=== PATIENT | male | born 1950 | race Caucasian/White ===

== ENCOUNTER 2018-03-15 11:35 | Outpatient (RCR) | payer OTHER, SELFPAY | END 2018-03-22 23:59 | disposition home or self-care (01) | LOC: CR 11:35 | PROVIDERS: PCP Internal Medicine; Visit Provider Family Medicine | DX: I25.2 Old myocardial infarction (principal); Z95.5 Presence of coronary angioplasty implant and graft; Z51.89 Encounter for other specified aftercare | CPT/HCPCS: S9472 ==

== ENCOUNTER 2018-05-09 15:50 | Observation (INO) | payer OTHER, MEDICARE, SELFPAY ==
[2018-05-09] VITALS (52 sets, daily range): BP systolic 91–160; BP diastolic 52–97; PULSE 0–95; RESP 10–65; TEMP 36.9–37.6; O2SAT 88–96
[2018-05-09 16:22] LABS: Abs Immature Grans 0.05 k/cumm (0.0-0.09); Absolute Basophil Count 0.03 k/cumm (0.0-0.2); Absolute Eosinophil Count 0.17 k/cumm (0.0-0.7); Absolute Monocyte Count 0.93 k/cumm (0.11-0.7); Absolute Neutrophil Count 10.84 k/cumm (1.2-6.7); Basophils % 0.2; Eosinophils % 1.3; HCT 47.5 % (40.0-50.0); HGB 15.5 g/dL (13.5-17.5); Immature Grans % 0.4; Lymphocytes % 8.4; Mean Corp. HGB Concentration 32.6 g/dL (32.0-36.0); Mean Corpuscular Hemoglobin 27.8 pg (27.0-33.0); Mean Corpuscular Volume 85.3 fL (80-95); Mean Platelet Volume 12.5 fL (8.0-11.0); Monocytes % 7.1; Neutrophils % 82.6; Platelet Count 219 x1000/uL (130-400); RBC 5.57 m/cumm (4.50-6.00); RBC Distribution Width 15.5 % (11.8-14.1); White Blood Cell Count 13.12 k/cumm (4.4-10.8)
--- NOTE | 2018-05-09 16:23 | DI.RAD_ITS ---
SYMPTOM/DIAGNOSIS: CHEST PAIN PORTABLE AP CHEST: The heart is mildly enlarged. The lungs are grossly clear. No pleural effusion is seen. CONCLUSION: Mild cardiomegaly. No change from 11/17/17.
[2018-05-09 16:38] LABS: ALT 41 U/L (12-78); AST 27 U/L (15-37); Albumin 4.6 g/dL (3.4-5.0); Alkaline Phosphatase 152 U/L (46-116); Anion Gap 11.9 mmol/L (3-11); BUN 14 mg/dL (7-18); Bilirubin, Direct 0.17 mg/dL (0.00-0.20); Bilirubin, Total 1.1 mg/dL (0.2-1.0); CO2 30.1 mmol/L (21.0-32.0); CREATININE 1.67 mg/dL (0.70-1.30); Calcium 9.4 mg/dL (8.5-10.1); Chloride 101 mmol/L (98-107); Glucose 97 mg/dL (70-100); Potassium 4.1 mmol/L (3.5-5.1); Sodium 143 mmol/L (136-145); Total Protein 8.9 g/dL (6.4-8.2); Troponin I < 0.02 ng/mL (0.00-0.06)
--- NOTE | 2018-05-09 16:38 | DI.VRAD_ITS ---
EXAM: XR Chest, 1 View EXAM DATE/TIME: 05/09/2018 4:06 PM CLINICAL HISTORY: 67 years old, male; Pain; Chest pain TECHNIQUE: XR of the chest, 1 view. COMPARISON: CR CHEST 2 VIEWS PA,LAT 11/17/2017 7:09 AM FINDINGS: The cardiomediastinal silhouette and pulmonary vasculature are within normal limits. The lungs are clear. No pleural effusion or pneumothorax is identified. IMPRESSION: No acute process. Dictated and Authenticated by: Jose E Yusuf MD. Ordering:LEDA NANCE MD
--- NOTE | 2018-05-09 16:40 | W.ED.GENAD ---
Discharge Plan Disposition Condition: Stable Discharge Details Chief Complaint: Chest Pain Reason For Visit: CHEST PAIN Admit Date/Time: 05/09/18 18:37 Admit Provider: Shell Smith Attending Provider: Shell Smith Primary Care Provider: Diallo Booth ED Provider: Tristen Parks Discharge Data Discharge Date/Time-TO BE ENTERED AT DEPARTURE: 05/09/18 20:00 Medical Decision Making 1640 --67-year-old male with history of coronary artery disease status post IL with stent in October 2017, here with chest pain that started this morning and has been intermittent since onset. No active pain currently. Consider acs. ECG reviewed and interpreted by me: Sinus rhythm 71 bpm, left axis, ST depressions noted lead I and aVL. I compared to prior EKG from 11/11/[address] depressions are not present. Plan to check trop. Consider PE. No hypoxia or tachycardia. No signs of dvt. 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 He has been taking his elliquis as prescribed. Plan to check ddimer. 16:55 --interpreted by radiology: No acute process -- Labs reviewed: nondiagnostic, mild leukocytosis noted, trop neg. Plan to admit for chest pain, r/o ACS. Spoke with hospitalist who will admit - care transitioned to hospitalist at time of admission. HPI General Mode of arrival: ambulatory. Date/Time Provider Initiated Documentation: 05/09/18 16:04. Limitations to Documentation: no limitations. Information obtained by: patient. HPI Narrative: 67yo m with HTN and s/p IL with stent 10/2017, here with chief complaint of chest pain. Pain is localized to left anterior chest and radiates to his left arm. Pain started around 8 AM this morning. Pain is been intermittent since onset. Patient notes that he has a brief episode lasting minutes every half hour or so. Pain is moderate in severity. Pain feels like a dull, burning sensation. Patient states that pain seems worse with certain positions including turning steering wheel and also with deep breath. Patient did take 2 nitroglycerin today 1 at 8 AM and 1 at 2 PM. Not sure if these helped his pain. He has associated shortness of breath. No leg swelling. Related Data Home Medications Medication Instructions Recorded Confirmed Atrovastatin C 80 mg PO DAILY 11/20/13 05/09/18 venlafaxine 37.5 mg PO DAILY 11/20/13 05/09/18 apixaban [Eliquis] 5 mg PO BID 30 Days #60 tab-cap 01/30/18 05/09/18 atorvastatin [Lipitor] 40 mg PO DAILY tab-cap 01/30/18 05/09/18 losartan [Cozaar] 25 mg PO DAILY tab-cap 01/30/18 05/09/18 metoprolol tartrate 100 mg PO BID #120 tab-cap 01/30/18 05/09/18 pantoprazole [Protonix] 40 mg PO DAILY tab-cap 01/30/18 05/09/18 ticagrelor [Brilinta] 90 mg PO BID tab-cap 01/30/18 05/09/18 furosemide [Lasix] 40 mg PO DAILY 05/09/18 05/09/18 Previous Rx's Medication Instructions Recorded apixaban [Eliquis] 5 mg PO BID 30 Days #60 tab-cap 01/30/18 metoprolol tartrate 100 mg PO BID #120 tab-cap 01/30/18 Allergies Allergy/AdvReac Type Severity Reaction Status Date / Time lisinopril Allergy Severe Anaphylaxsi Verified 05/09/18 15:55 s General Stated Complaint: Chest Pain MANOJ: 2 Review of Systems Review of Systems All systems reviewed & are unremarkable except as noted in HPI and below Cardiovascular Reports as per HPI and Reports chest pain Respiratory Reports as per HPI and Denies cough PFSH Family History Mother CAD (coronary artery disease) CVA (cerebral vascular accident) Hypertension Sister Brain cancer Medical History Hyperlipidemia (Chronic) Hypertension, essential (Chronic) Paroxysmal atrial fibrillation (Chronic) Systolic CHF (Chronic) CAD (coronary artery disease) (Chronic) Social History marital status: lives independently: Yes 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[employer] Smoking/Tobacco Use Status: Former Tobacco Use alcohol intake: former substance use type: does not use Surgical History H/O cardiac catheterization (Chronic) History of appendectomy (Chronic) Colonoscopy - IV Sedation (02/28/16) Exam Const General: cooperative and no acute distress HENMT Head: normocephalic and atraumatic Mouth: moist mucous membranes Eyes Conjunctivae: normal conjunctivae Sclera: normal sclerae EOM: EOM intact bilaterally Neck Neck: trachea midline and supple Resp Auscultation: clear to auscultation bilaterally, no rales, no rhonchi and no wheezes Cardio Jugular venous pressure: no JVD Rate: regular rate and not tachycardic Rhythm: regular rhythm GI Palpation: soft, not firm, no guarding, no masses, not rigid and nontender Skin General skin exam: no rashes or lesions noted Neuro General: alert, awake, oriented x3 and tone normal Extrem General: no calf tenderness and no edema Psych Appearance: grossly normal Mental Status: mental status grossly normal Speech and Movement: speech and movement normal Course Vital Signs Temperature 36.9 C 05/09/18 15:56 Pulse 73 05/09/18 15:56 Respiratory Rate 13 05/09/18 15:56 Blood Pressure 160/90 H 05/09/18 15:56 Pulse Oximetry 95 05/09/18 15:56 Temperature 36.9 C 05/09/18 15:56 Temperature Source Temporal Artery Scan 05/09/18 15:56 Pulse 73 05/09/18 15:56 Respiratory Rate 13 05/09/18 15:56 Respiratory Effort 05/09/18 16:02 Blood Pressure 160/90 H 05/09/18 15:56 Pulse Oximetry 95 05/09/18 15:56 Oxygen Delivery Method Room Air 05/09/18 15:56 Oxygen Flow Rate 0 05/09/18 15:56 Pain Level 6 05/09/18 16:02 Lab/Test Results Lab/Test Results: Laboratory Tests Range/Units 05/09/18 05/09/18 16:00 16:00 WBC (4.4-10.8) k/cumm 13.12 H RBC (4.50-6.00) m/cumm 5.57 Hgb (13.5-17.5) g/dL 15.5 Hct (40.0-50.0) % 47.5 MCV (80-95) fL 85.3 MCH (27.0-33.0) pg 27.8 MCHC (32.0-36.0) g/dL 32.6 RDW (11.8-14.1) % 15.5 H Plt Count (130-400) x1000/uL 219 MPV (8.0-11.0) fL 12.5 H Immature Gran % 0.4 Neutrophils % 82.6 Lymphocytes % 8.4 Monocytes % 7.1 Eosinophils % 1.3 Basophils % 0.2 Absolute Neutrophils (1.2-6.7) k/cumm 10.84 H Absolute Lymphocytes (1.2-3.4) k/cumm 1.10 L Absolute Monocytes (0.11-0.7) k/cumm 0.93 H Absolute Eosinophils (0.0-0.7) k/cumm 0.17 Absolute Basophils (0.0-0.2) k/cumm 0.03 Sodium (136-145) mmol/L 143 Potassium (3.5-5.1) mmol/L 4.1 Chloride (98-107) mmol/L 101 Carbon Dioxide (21.0-32.0) mmol/L 30.1 Anion Gap (3-11) mmol/L 11.9 H BUN (7-18) mg/dL 14 Creatinine (0.70-1.30) mg/dL 1.67 H Estimated GFR/1.73 m2 (mL/min/1.73m2) 41.50 Glucose (70-100) mg/dL 97 Calcium (8.5-10.1) mg/dL 9.4 Magnesium (1.8-2.4) mg/dL 2.0 Total Bilirubin (0.2-1.0) mg/dL 1.1 H Conjugated Bilirubin (0.00-0.20) mg/dL 0.17 AST (15-37) U/L 27 ALT (12-78) U/L 41 Alkaline Phosphatase (46-116) U/L 152 H Troponin I (0.00-0.06) ng/mL < 0.02 Total Protein (6.4-8.2) g/dL 8.9 H Albumin (3.4-5.0) g/dL 4.6
--- NOTE | 2018-05-09 16:43 | ED.GENADUL_ITS ---
Discharge Plan Disposition Condition: Stable Discharge Details Chief Complaint: Chest Pain Reason For Visit: CHEST PAIN Admit Date/Time: 05/09/18 18:37 Admit Provider: Shell Smith Attending Provider: Shell Smith Primary Care Provider: Diallo Booth ED Provider: Tristen Parks Discharge Data Discharge Date/Time-TO BE ENTERED AT DEPARTURE: 05/09/18 20:00 Medical Decision Making 1640 --67-year-old male with history of coronary artery disease status post [place] with stent in October 2017, here with chest pain that started this morning and has been intermittent since onset. No active pain currently. Consider acs. ECG reviewed and interpreted by me: Sinus rhythm 71 bpm, left axis, ST depressions noted lead I and aVL. I compared to prior EKG from 11/11/[address] depressions are not present. Plan to check trop. Consider PE. No hypoxia or tachycardia. No signs of dvt. 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 He has been taking his elliquis as prescribed. Plan to check ddimer. 16:55 --interpreted by radiology: No acute process -- Labs reviewed: nondiagnostic, mild leukocytosis noted, trop neg. Plan to admit for chest pain, r/o ACS. Spoke with hospitalist who will admit - care transitioned to hospitalist at time of admission. HPI General Mode of arrival: ambulatory . Date/Time Provider Initiated Documentation: 05/09/18 16:04 . Limitations to Documentation: no limitations . Information obtained by: patient . HPI Narrative: 67yo m with HTN and s/p DE with stent 10/2017, here with chief complaint of chest pain. Pain is localized to left anterior chest and radiates to his left arm. Pain started around 8 AM this morning. Pain is been intermittent since onset. Patient notes that he has a brief episode lasting minutes every half hour or so. Pain is moderate in severity. Pain feels like a dull, burning sensation. Patient states that pain seems worse with certain positions including turning steering wheel and also with deep breath. Patient did take 2 nitroglycerin today 1 at 8 AM and 1 at 2 PM. Not sure if these helped his pain. He has associated shortness of breath. No leg swelling. Related Data Home Medications Medication Instructions Recorded Confirmed Atrovastatin C 80 mg PO DAILY 11/20/13 05/09/18 venlafaxine 37.5 mg PO DAILY 11/20/13 05/09/18 apixaban [Eliquis] 5 mg PO BID 30 Days #60 tab-cap 01/30/18 05/09/18 atorvastatin [Lipitor] 40 mg PO DAILY tab-cap 01/30/18 05/09/18 losartan [Cozaar] 25 mg PO DAILY tab-cap 01/30/18 05/09/18 metoprolol tartrate 100 mg PO BID #120 tab-cap 01/30/18 05/09/18 pantoprazole [Protonix] 40 mg PO DAILY tab-cap 01/30/18 05/09/18 ticagrelor [Brilinta] 90 mg PO BID tab-cap 01/30/18 05/09/18 furosemide [Lasix] 40 mg PO DAILY 05/09/18 05/09/18 Previous Rx's Medication Instructions Recorded apixaban [Eliquis] 5 mg PO BID 30 Days #60 tab-cap 01/30/18 metoprolol tartrate 100 mg PO BID #120 tab-cap 01/30/18 Allergies Allergy/AdvReac Type Severity Reaction Status Date / Time lisinopril Allergy Severe Anaphylaxsi Verified 05/09/18 15:55 s General Stated Complaint: Chest Pain MANOJ: 2 Review of Systems Review of Systems All systems reviewed & are unremarkable except as noted in HPI and below Cardiovascular Reports as per HPI and Reports chest pain Respiratory Reports as per HPI and Denies cough PFSH Family History Mother CAD (coronary artery disease) CVA (cerebral vascular accident) Hypertension Sister Brain cancer Medical History Hyperlipidemia (Chronic) Hypertension, essential (Chronic) Paroxysmal atrial fibrillation (Chronic) Systolic CHF (Chronic) CAD (coronary artery disease) (Chronic) Social History marital status: lives independently: Yes 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[employer] Smoking/Tobacco Use Status: Former Tobacco Use alcohol intake: former substance use type: does not use Surgical History H/O cardiac catheterization (Chronic) History of appendectomy (Chronic) Colonoscopy - IV Sedation (02/28/16) Exam Const General: cooperative and no acute distress HENMT Head: normocephalic and atraumatic Mouth: moist mucous membranes Eyes Conjunctivae: normal conjunctivae Sclera: normal sclerae EOM: EOM intact bilaterally Neck Neck: trachea midline and supple Resp Auscultation: clear to auscultation bilaterally, no rales, no rhonchi and no wheezes Cardio Jugular venous pressure: no JVD Rate: regular rate and not tachycardic Rhythm: regular rhythm GI Palpation: soft, not firm, no guarding, no masses, not rigid and nontender Skin General skin exam: no rashes or lesions noted Neuro General: alert, awake, oriented x3 and tone normal Extrem General: no calf tenderness and no edema Psych Appearance: grossly normal Mental Status: mental status grossly normal Speech and Movement: speech and movement normal Course Vital Signs Temperature 36.9 C 05/09/18 15:56 Pulse 73 05/09/18 15:56 Respiratory Rate 13 05/09/18 15:56 Blood Pressure 160/90 H 05/09/18 15:56 Pulse Oximetry 95 05/09/18 15:56 Temperature 36.9 C 05/09/18 15:56 Temperature Source Temporal Artery Scan 05/09/18 15:56 Pulse 73 05/09/18 15:56 Respiratory Rate 13 05/09/18 15:56 Respiratory Effort 05/09/18 16:02 Blood Pressure 160/90 H 05/09/18 15:56 Pulse Oximetry 95 05/09/18 15:56 Oxygen Delivery Method Room Air 05/09/18 15:56 Oxygen Flow Rate 0 05/09/18 15:56 Pain Level 6 05/09/18 16:02 Lab/Test Results Lab/Test Results: Laboratory Tests Range/Units 05/09/18 05/09/18 16:00 16:00 WBC (4.4-10.8) k/cumm 13.12 H RBC (4.50-6.00) m/cumm 5.57 Hgb (13.5-17.5) g/dL 15.5 Hct (40.0-50.0) % 47.5 MCV (80-95) fL 85.3 MCH (27.0-33.0) pg 27.8 MCHC (32.0-36.0) g/dL 32.6 RDW (11.8-14.1) % 15.5 H Plt Count (130-400) x1000/uL 219 MPV (8.0-11.0) fL 12.5 H Immature Gran % 0.4 Neutrophils % 82.6 Lymphocytes % 8.4 Monocytes % 7.1 Eosinophils % 1.3 Basophils % 0.2 Absolute Neutrophils (1.2-6.7) k/cumm 10.84 H Absolute Lymphocytes (1.2-3.4) k/cumm 1.10 L Absolute Monocytes (0.11-0.7) k/cumm 0.93 H Absolute Eosinophils (0.0-0.7) k/cumm 0.17 Absolute Basophils (0.0-0.2) k/cumm 0.03 Sodium (136-145) mmol/L 143 Potassium (3.5-5.1) mmol/L 4.1 Chloride (98-107) mmol/L 101 Carbon Dioxide (21.0-32.0) mmol/L 30.1 Anion Gap (3-11) mmol/L 11.9 H BUN (7-18) mg/dL 14 Creatinine (0.70-1.30) mg/dL 1.67 H Estimated GFR/1.73 m2 (mL/min/1.73m2) 41.50 Glucose (70-100) mg/dL 97 Calcium (8.5-10.1) mg/dL 9.4 Magnesium (1.8-2.4) mg/dL 2.0 Total Bilirubin (0.2-1.0) mg/dL 1.1 H Conjugated Bilirubin (0.00-0.20) mg/dL 0.17 AST (15-37) U/L 27 ALT (12-78) U/L 41 Alkaline Phosphatase (46-116) U/L 152 H Troponin I (0.00-0.06) ng/mL < 0.02 Total Protein (6.4-8.2) g/dL 8.9 H Albumin (3.4-5.0) g/dL 4.6
[2018-05-09 17:37] LABS: D-Dimer 671 ng/mlFEU (<500)
[2018-05-09 19:25] LABS: NT-proBNP 3869 pg/mL
[2018-05-09] MEDS: Aspirin 81 MG CHEW PO (19:26)
[2018-05-09 20:40] LABS: Troponin I 0.02 ng/mL (0.00-0.06)
[2018-05-09] MEDS: Normal Saline Flush 10 ML SYR IVP ×2 (21:00→23:38)
--- NOTE | 2018-05-09 21:16 | HPE_ITS ---
Date of service: 05/09/18 Time of Service: 21:14 Assessment and Plan (1) Chest pain: Current visit: Yes Status: Acute Differential diagnosis includes unstable angina vs underlying pulmonary process. The fact that the patient states his symptoms are similar to those he had during his heart attack is concerning. The patient has been on brillinta, but not on asa. He was previously suspected to be resistant to plavix. Patient will be monitored on telemetry with serial cardiac enzymes, repeat EKG in am and cardiology consult in am. Restart aspirin. We will continue his outpatient metoprolol, losartan, brillinta, atorvastatin. Check Lipids in am. (2) Fever: Current visit: Yes Status: Acute The most likely etiology is acute bronchitis, possibly viral. However, will cover him empirically with rocephin. Blood culture, UA and urine C&S were ordered. (3) CAD (coronary artery disease): Current visit: Yes Status: Chronic s/p STEMI, 2 cardiac caths at [facility] this spring with [address] (2nd catheterization due to suspected in-stent restenosis while on plavix), not on asa x 2 months, not on plavix due to suspected resistance, but on brillinta and eliquis. Restart asa. Cardiology is being consulted. Read chest pain w/u section above. (4) Systolic CHF: Current visit: Yes Status: Chronic Clinically euvolemic, though I do see elevated pro BNP. This marker can go up with infectious pulmonary process such as pneumonia or bronchitis. Continue outpatient oral lasix though will give an extra dose of it tonight. (5) Paroxysmal atrial fibrillation: Current visit: Yes Status: Chronic Presently, in NSR. Continue eliquis and beta blockers. (6) Hypertension, essential: Current visit: Yes Status: Chronic Controlled on outpatient regimen - continue (7) Hyperlipidemia: Current visit: Yes Status: Chronic Continue atorvastatin. Check fasting lipid panel. (8) CKD (chronic kidney disease): Current visit: Yes Status: Acute Stage III, actually slightly better than baseline by GFR. Continue ARB, lasix, monitor kidney function. History of Present Illness Chief Complaint: Chest pain Narrative: Mr Romano is a 67 year-old male with PMHx of CAD s/p STEMI in October of 2017, requiring a cardiac cath at [facility] with placement of 2 drug eluting stents, as well as a follow up cardiac cath 2 days later for suspected in-stent restenosis/plavix resistance, requiring placement of a 3rd stent, who also has a history of paroxysmal Afib, on eliquis, hypertension, and hyperlipidemia, who presented to the ER today complaining of episodic Left-sided chest pains, burning, like heartburn, radiating down his Left arm starting at about 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 The patient took a nitroglycerin at that time and it helped. Throughout the day, the patient had between 15 and 20 of these episodes, never lasting more than a minute or two. He is pain free now, but he is anxious about it, worrying that he might be having a heart attack again. The patient reports feeling short of breath today, but cannot give me any more detail than that. He is not short of breath now. He denies any dizziness, sweats/diaphoresis, feeling like he might pass out or any nausea. He states he chest pain felt like he did when he ended up needing the first cardiac cath. The patient also endorses having chills and not being able to warm up earlier today. He denies any sore throat, any changes to his chronic dry cough, or any urinary symptoms outside of those that he experiences after taking lasix. In the ER, the patient was found to have WBC of 13. He spiked a fever of 37.6 [address]. Review of Systems Review of Systems 12 systems reviewed. Pertinent positives and negatives are as per HPI. 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 Smoking/Tobacco Use Status: Former Tobacco Use alcohol intake: former substance use type: does not use Surgical History H/O cardiac catheterization (Chronic) History of appendectomy (Chronic) Colonoscopy - IV Sedation (02/28/16) Meds Home Medications Medication Instructions Recorded Confirmed Type Atrovastatin C 80 mg PO DAILY 11/20/13 05/09/18 History venlafaxine 37.5 mg PO DAILY 11/20/13 05/09/18 History apixaban [Eliquis] 5 mg PO BID 30 Days #60 tab-cap 01/30/18 05/09/18 Rx atorvastatin [Lipitor] 40 mg PO DAILY tab-cap 01/30/18 05/09/18 History losartan [Cozaar] 25 mg PO DAILY tab-cap 01/30/18 05/09/18 History metoprolol tartrate 100 mg PO BID #120 tab-cap 01/30/18 05/09/18 Rx pantoprazole [Protonix] 40 mg PO DAILY tab-cap 01/30/18 05/09/18 History ticagrelor [Brilinta] 90 mg PO BID tab-cap 01/30/18 05/09/18 History furosemide [Lasix] 40 mg PO DAILY 05/09/18 05/09/18 History Allergies Allergy/AdvReac Type Severity Reaction Status Date / Time lisinopril Allergy Severe Anaphylaxsi Verified 05/09/18 15:55 s Exam Narrative Exam Narrative: General: Very pleasant Middle-aged male, sitting up in bed eating dinner, joking, does not appear to be short of breath, able to speak in full sentences, does stop to cough 3-4 times during our interview - nonproductive Neurological: A&Ox3, CN II-XII intact, no obvious focal deficits Psychiatric: appropriate speech content/affect Skin: no bruises or rashes HEENT: Atraumatic, normocephalic, Extraocular movements are intact, pupils are equal and round, clear oropharynx, Mallampati IV, large neck diameter, moist mucous membranes, no submandibular or cervical lymphadenopathy, no goiter or JVD Cardiovascular: regularly regular rhythm, no murmurs, rubs, or gallops Lungs: clear to auscultation bilaterally, questionable slightly coarse breath sounds Gastrointestinal: abdomen soft, nontender, nondistended Extremities: 2+ pedal pulses bilaterally, no edema, clubbing, or cyanosis Results Imaging Additional studies: CXR: official read - no acute process. Per my read, slight air bronchograms can be noticed. EKG: HR 71, NSR, no acute ischemia, nonspecific ST changes, old inferior NE Labs : 05/09/18 16:00 05/09/18 16:00 Laboratory Results - last 24 hr 05/09/18 05/09/18 05/09/18 16:00 16:00 16:00 WBC 13.12 H RBC 5.57 Hgb 15.5 Hct 47.5 MCV 85.3 MCH 27.8 MCHC 32.6 RDW 15.5 H Plt Count 219 MPV 12.5 H Immature Gran % 0.4 Neutrophils % 82.6 Lymphocytes % 8.4 Monocytes % 7.1 Eosinophils % 1.3 Basophils % 0.2 Absolute Neutrophils 10.84 H Absolute Lymphocytes 1.10 L Absolute Monocytes 0.93 H Absolute Eosinophils 0.17 Absolute Basophils 0.03 D-Dimer 671 H Sodium 143 Potassium 4.1 Chloride 101 Carbon Dioxide 30.1 Anion Gap 11.9 H BUN 14 Creatinine 1.67 H Estimated GFR/1.73 m2 41.50 Glucose 97 Calcium 9.4 Magnesium 2.0 Total Bilirubin 1.1 H Conjugated Bilirubin 0.17 AST 27 ALT 41 Alkaline Phosphatase 152 H Troponin I < 0.02 NT-Pro-B Natriuret Pep Total Protein 8.9 H Albumin 4.6 05/09/18 05/09/18 16:00 20:15 WBC RBC Hgb Hct MCV MCH MCHC RDW Plt Count MPV Immature Gran % Neutrophils % Lymphocytes % Monocytes % Eosinophils % Basophils % Absolute Neutrophils Absolute Lymphocytes Absolute Monocytes Absolute Eosinophils Absolute Basophils D-Dimer Sodium Potassium Chloride Carbon Dioxide Anion Gap BUN Creatinine Estimated GFR/1.73 m2 Glucose Calcium Magnesium Total Bilirubin Conjugated Bilirubin AST ALT Alkaline Phosphatase Troponin I 0.02 NT-Pro-B Natriuret Pep 3869 H Total Protein Albumin Last Vital Signs Temp 36.9 C 05/09/18 15:56 Pulse 76 05/09/18 20:16 Resp 20 05/09/18 20:16 BP 125/77 05/09/18 20:16 Pulse Ox 96 05/09/18 20:16
[2018-05-09 21:47] LABS: Bilirubin Negative (Negative); Blood Negative (Negative); Clarity Clear; Glucose Negative (Negative); Ketones Negative (Negative); Leukocyte Esterase Negative (Negative); Nitrite Negative (Negative); Specific Gravity 1.015 (1.005-1.025); Urobilinogen 0.2 EU/dL (Up TO 0.2); pH 5.5 (5-8)
[2018-05-09 21:59] LABS: Bacteria Rare HPF (Negative); Casts Negative LPF (Negative); Crystals Negative HPF (Negative); Epithelial Cells Negative HPF (Negative); Mucus Trace (Negative); Other Cells Negative (Negative); RBC Negative (0-2); WBC Negative HPF (0-5)
[2018-05-09 22:00] LABS: C & S Indicated? C&S Done As Ordered
[2018-05-09] MEDS: Metoprolol 50 MG TAB 100 MG PO (23:33)
[2018-05-09] MEDS: Apixaban 2.5 MG TAB 5 MG PO (23:37)
[2018-05-09] MEDS: Furosemide 40 MG TAB PO (23:37)
[2018-05-10] VITALS (53 sets, daily range): BP systolic 83–112; BP diastolic 38–81; PULSE 42–95; RESP 12–26; TEMP 36.3–36.4; O2SAT 2–99
[2018-05-10 07:20] LABS: Abs Immature Grans 0.02 k/cumm (0.0-0.09); Absolute Basophil Count 0.01 k/cumm (0.0-0.2); Absolute Eosinophil Count 0.11 k/cumm (0.0-0.7); Absolute Lymphocyte Count 1.52 k/cumm (1.2-3.4); Absolute Monocyte Count 0.82 k/cumm (0.11-0.7); Absolute Neutrophil Count 4.42 k/cumm (1.2-6.7); Basophils % 0.1; Eosinophils % 1.6; HCT 41.8 % (40.0-50.0); HGB 13.8 g/dL (13.5-17.5); Immature Grans % 0.3; Mean Corpuscular Hemoglobin 28.1 pg (27.0-33.0); Mean Corpuscular Volume 85.1 fL (80-95); Mean Platelet Volume 12.5 fL (8.0-11.0); Monocytes % 11.9; Neutrophils % 64.1; Platelet Count 181 x1000/uL (130-400); RBC 4.91 m/cumm (4.50-6.00); RBC Distribution Width 15.5 % (11.8-14.1)
[2018-05-10 07:31] LABS: BUN 18 mg/dL (7-18); CREATININE 1.68 mg/dL (0.70-1.30); Calcium 8.6 mg/dL (8.5-10.1); Chloride 103 mmol/L (98-107); Cholesterol 163 mg/dL (50-200); Estimated GFR 41.21 (mL/min/1.73m2); Glucose 103 mg/dL (70-100); HDL Cholesterol 48 mg/dL (40-60); LDL CHOLESTEROL 100 mg/dL (<100); Magnesium 1.7 mg/dL (1.8-2.4); Potassium 3.4 mmol/L (3.5-5.1); Sodium 141 mmol/L (136-145); Triglyceride 97 mg/dL (30-150); Troponin I 0.02 ng/mL (0.00-0.06)
--- NOTE | 2018-05-10 08:31 | PDOC.CMIN ---
Care Management Initial Assess REASON FOR HOSPITALIZATION:: Chest Pain PAST MEDICAL HISTORY/PAST SURGICAL HISTORY:: CAD, STEMI October 2017, angina, anxiety, high cholesterol, transient sensory symptoms, former tobacco use; quit 1980, Hyperlipidemia, Hypertension, Paroxysmal A-fib, Systolic CHF, MIx2 colonoscopy, cardiac cathertization, appendectomy, shoulder surgery(s), 3 cardiac stents in November. PREVIOUS FUNCTIONAL STATUS/SOCIAL/FAMILY SUPPORTS:: Uziel resides with his , Kena in [place], [place]. He has two daughters from a previous marriage and six grandchildren. 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 Uziel is independent with all ADLs in the community. CURRENT FUNCTIONAL STATUS:: Uziel is sitting up in his chair, across from his , Nathen. He is welcoming and animated in interaction as well as forthcoming with information. ADVANCE DIRECTIVES:: Provided to Uziel and his , Nathen for completion-CM will support in processing. Has patient been provided with information about the portal?: Yes Did the patient sign up for the portal?: No CODE STATUS:: Full Code INSURANCE COVERAGE / FINANCIAL ISSUES:: [employer] CURRENT HOME/COMMUNITY SERVICES/EQUIPMENT:: Cardiac Rehab, no current services or equipment. PRIMARY CARE PHYSICIAN:: Diallo Booth POTENTIAL DISCHARGE NEEDS:: Monitoring of symptoms, follow up appointments. PATIENT/FAMILY EDUCATION NEEDS:: Review of discharge instructions, advance directives, discuss Ask Me Three. ANTICIPATED BARRIERS TO DISCHARGE:: None identified. TRANSPORTATION:: Via private vehicle with his significant other. PLAN:: Uziel will return home when ready per MD. He will have outpatient follow up appointments and transport via private vehicle with his , Kena.
[2018-05-10] MEDS: Pantoprazole 20 MG TABCR 40 MG PO (09:58)
[2018-05-10] MEDS: Losartan 25 MG TAB PO (09:58)
[2018-05-10] MEDS: Furosemide 40 MG TAB PO (09:58)
[2018-05-10] MEDS: Ticagrelor 90 MG TAB PO (09:58)
[2018-05-10] MEDS: Apixaban 2.5 MG TAB 5 MG PO (09:58)
--- NOTE | 2018-05-10 11:24 | MERGE_ITS ---
*[facility]* *[facility]* [address] [place] [address] Date of study: 05/10/2018 Transthoracic Echocardiography M-mode, complete 2D, complete spectral Doppler, and color Doppler *STUDY CONCLUSIONS* Summary: 1. Left ventricle: The cavity size was normal. Systolic function was normal. The estimated ejection fraction was 60-65%. Diastolic parameters were normal. There was no evidence of elevated ventricular filling pressure by Doppler parameters. 2. Mitral valve: There was mild regurgitation. 3. Right ventricle: The cavity size was normal. Wall thickness was normal. Systolic function was normal. 4. Right atrium: The atrium was mildly dilated. 5. Atrial septum: No defect or patent foramen ovale was identified. 6. Pulmonary arteries: Systolic pressure could not be accurately estimated. 7. Inferior vena cava: The vessel was normal in size. The respirophasic diameter changes were in the normal range (greater than or equal to 50%), consistent with normal central venous pressure. *PATIENT PRESENTATION* Height: 182.9cm ((72in) ) S/D Pressure: 112 / 81 Weight: 108kg ((237.5lb) ) BSA: 2.37m^2 Test start time: 11:15 AM. Test stop time: 12:15 PM. PERFORMING Unknown ORDERING Jorge A Richter REFERRING Jorge A Richter PERFORMING [facility] [employer] Hannah Ace *PROCEDURE DATA* Procedure information: This study was interpreted by [facility]. Pertinent images and digital data are archived for permanent storage and are available for subsequent review. No prior study was available for comparison. Study status: Routine. Transthoracic echocardiography. M-mode, complete 2D, complete spectral Doppler, and color Doppler. A Transthoracic Echocardiogram was performed. Scanning was performed from the parasternal, apical, subcostal, and suprasternal notch acoustic windows. Images were obtained using an [employer] SC 2000 cardiac ultrasound machine. Image quality was adequate. Study completion: The patient tolerated the procedure well. History: PMH: Chest pain, cad. *CARDIAC ANATOMY* Left ventricle: The cavity size was normal. Systolic function was normal. The estimated ejection fraction was 60-65%. The tissue Doppler parameters were normal. Diastolic parameters were normal. There was no evidence of elevated ventricular filling pressure by Doppler parameters. Aortic valve: Trileaflet. Doppler: There was no stenosis. There was no regurgitation. VTI ratio of LVOT to aortic valve: 0.72. Valve area (VTI): 2.4cm^2. Indexed valve area (VTI): 1cm^2/m^2. Peak velocity ratio of LVOT to aortic valve: 0.72. Valve area (Vmax): 2.4cm^2. Indexed valve area (Vmax): 1cm^2/m^2. Mean velocity ratio of LVOT to aortic valve: 0.69. Valve area (Vmean): 2.3cm^2. Indexed valve area (Vmean): 1cm^2/m^2. Mean gradient (S): 4.4mm Hg. Peak gradient (S): 8mm Hg. Aorta: Aortic root: The aortic root was normal in size. Ascending aorta: The ascending aorta was normal in size. Mitral valve: Doppler: There was no evidence for stenosis. There was mild regurgitation. Valve area by pressure half-time: 2.9cm^2. Indexed valve area by pressure half-time: 1.2cm^2/m^2. Left atrium: The atrium was normal in size. Atrial septum: No defect or patent foramen ovale was identified. Right ventricle: The cavity size was normal. Wall thickness was normal. Systolic function was normal. Pulmonic valve: Doppler: There was no evidence for stenosis. There was mild regurgitation. Peak gradient (S): 4.8mm Hg. Tricuspid valve: Doppler: There was mild regurgitation. Pulmonary artery: Poorly visualized. Systolic pressure could not be accurately estimated. Right atrium: The atrium was mildly dilated. Pericardium: There was no pericardial effusion. Systemic veins: Inferior vena cava: The vessel was normal in size. The respirophasic diameter changes were in the normal range (greater than or equal to 50%), consistent with normal central venous pressure. Measurements Left ventricle Value Reference LV ID, ED, PLAX 5.5 cm 3.5 - 6.0 LV ID, ES, PLAX 4.0 cm 2.1 - 4.0 LV PW thickness, ED, PLAX 1.1 cm LV end-diastolic volume, 1-p A2C 122 ml LV ejection fraction, 1-p A2C 59 % LV end-diastolic volume, 1-p A4C 140 ml LV ejection fraction, 1-p A4C 75 % LV e', lateral 0.091 m/sec LV E/e', lateral 7 LV e', medial 0.06 m/sec LV E/e', medial 11 LV e', average 0.075 m/sec LV E/e', average 9 Ventricular septum Value Reference IVS thickness, ED, PLAX 1.0 cm LVOT Value Reference LVOT ID, A-P 2.1 cm LVOT area 3.3 cm^2 LVOT peak velocity, S 1.01 m/sec LVOT mean velocity, S 0.68 m/sec LVOT VTI, S 23.6 cm LVOT peak gradient, S 4.1 mm Hg LVOT mean gradient, S 2.1 mm Hg Stroke volume (SV), LVOT DP 78 ml Stroke index (SV/bsa), LVOT DP 33 ml/m^2 Aortic valve Value Reference Aortic valve peak velocity, S 1.4 m/sec Aortic valve mean velocity, S 0.98 m/sec Aortic valve VTI, S 33.0 cm Aortic mean gradient, S 4.4 mm Hg Aortic peak gradient, S 8 mm Hg VTI ratio, LVOT/AV 0.72 Aortic valve area, VTI 2.4 cm^2 Velocity ratio, peak, LVOT/AV 0.72 Aortic valve area, peak velocity 2.4 cm^2 Velocity ratio, mean, LVOT/AV 0.69 Aortic valve area, mean velocity 2.3 cm^2 Aortic valve area/bsa, mean velocity 1 cm^2/m^2 Aorta Value Reference Aortic root ID, ED 3.4 cm Ascending aorta ID, A-P, S 3.7 cm Left atrium Value Reference LA ID, A-P, ES 4.8 cm LA ID/bsa, A-P 2.0 cm/m^2 <=2.2 LA area, ES, A4C 22.3 cm^2 8.8 - 23.4 LA area, ES, A2C 21 cm^2 LA volume/bsa, S 29 ml/m^2 LA volume, ES, 2-p 64 ml LA volume/bsa, ES, 2-p 27 ml/m^2 LA/aortic root ratio 1.43 Mitral valve Value Reference Mitral E-wave peak velocity 0.67 m/sec Mitral A-wave peak velocity 0.88 m/sec Mitral deceleration time (H) 265 ms 150 - 230 Mitral pressure half-time 77 ms Mitral E/A ratio, peak 0.77 Mitral valve area, PHT, DP 2.9 cm^2 Tricuspid valve Value Reference Tricuspid regurg peak velocity 2 m/sec Tricuspid peak RV-RA gradient 16.6 mm Hg Right atrium Value Reference RA area, ES, A4C (H) 20.2 cm^2 8.3 - 19.5 Pulmonic valve Value Reference Pulmonic peak gradient, S 4.8 mm Hg Legend: (L) and (H) gogo values outside specified reference range. I have personally reviewed the images and have reviewed and edited the reported findings. Electronically signed by Booker Mercedes MD 05/10/2018 18:34
--- NOTE | 2018-05-10 11:43 | INITIAL_ITS ---
Care Management Initial Assess REASON FOR HOSPITALIZATION:: Chest Pain PAST MEDICAL HISTORY/PAST SURGICAL HISTORY:: CAD, STEMI October 2017, angina, anxiety, high cholesterol, transient sensory symptoms, former tobacco use; quit 1980, Hyperlipidemia, Hypertension, Paroxysmal A-fib, Systolic CHF, MIx2 colonoscopy, cardiac cathertization, appendectomy, shoulder surgery(s), 3 cardiac stents in November. PREVIOUS FUNCTIONAL STATUS/SOCIAL/FAMILY SUPPORTS:: Uziel resides with his , Kena in [place], [place]. He has two daughters from a previous marriage and six grandchildren. 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 Uziel is independent with all ADLs in the community. CURRENT FUNCTIONAL STATUS:: Uziel is sitting up in his chair, across from his , Nathen. He is welcoming and animated in interaction as well as forthcoming with information. ADVANCE DIRECTIVES:: Provided to Uziel and his , Nathen for completion-CM will support in processing. Has patient been provided with information about the portal?: Yes Did the patient sign up for the portal?: No CODE STATUS:: Full Code INSURANCE COVERAGE / FINANCIAL ISSUES:: TBS. [employer] CURRENT HOME/COMMUNITY SERVICES/EQUIPMENT:: Cardiac Rehab, no current services or equipment. PRIMARY CARE PHYSICIAN:: Diallo Booth POTENTIAL DISCHARGE NEEDS:: Monitoring of symptoms, follow up appointments. PATIENT/FAMILY EDUCATION NEEDS:: Review of discharge instructions, advance directives, discuss Ask Me Three. ANTICIPATED BARRIERS TO DISCHARGE:: None identified. TRANSPORTATION:: Via private vehicle with his significant other. PLAN:: Uziel will return home when ready per MD. He will have outpatient follow up appointments and transport via private vehicle with his , Kena.
[2018-05-10] MEDS: Magnesium Oxide 400 MG TAB PO ×2 (12:08→19:25)
[2018-05-10] MEDS: Potassium Chloride 20 MEQ TABCR 40 MEQ PO (12:08)
[2018-05-10] MEDS: Aspirin 81 MG CHEW PO (12:09)
--- NOTE | 2018-05-10 12:13 | PHARADMIT ---
Admission Pharmacy Clinical Review CHEST PAIN, previous heart attack, Stemi, Stents, afib Code Status Full Code Current Weight 108.2 kg Renally Cleared and Narrow Therapeutic Index Meds CrCl~48ml/min QTc Value / Action Taken BP Control, Fever BP 112/81 Bradycardic overnight Afebrile Electrolytes reviewed K+ 3.4 Mag 1.7 ...replaced orally x 2 doses of each today DVT Prophylaxis Eliquis dose given this morning, then MD put on hold Brilinta, ASA 81mg starting Heparin drip this evening @ 8pm with NO bolus Opiate Usage / Scheduled Bowel Regimen Ordered Plt/SCr for Heparin / Enoxaparin Plt 181 SCr 1.68 INR for Warfarin H/H stable, WBC/Bands H/H 13.8/41.8 WBC 6.9 Antibiotic appropriateness Did get Rocephin x 1 but chest xray negative Cultures and Sensitivities Blood pending urine: <10k therefore negative Surgical ABX d/c within 24 hr DM control / Insulin Dosing BG 103 Heart Failure (Check EF%) (SHERRON's, B-Block, Diuretics) Lasix, Losartan, Metoprolol dose decreased, NTG Lexiscan ordered...no cardiology here today, plan? IV to PO Switch Home Meds Reviewed Home Meds Not Ordered Comments Troponin neg x 3 Probnp 3869, watch I/O weight, on Lasix
--- NOTE | 2018-05-10 15:30 | W.PM.PROGNOT ---
Assessment and Plan (1) Chest pain: Current visit: Yes Status: Acute EKG with Q Waves that appear unchanged per discussion with cardiology at [facility], and serial cardiac biomarkers appear negative. However, symptoms are concerning for unstable angina. Continue BB - decrease dose given HR in the 40's, and adjust as needed. Continue Ticagrelor and reinitiate aspirin (discontinued by cardiology given concurrent anticoagulation with Apixaban). Currently on high potency statin. Hold Apixaban and initiate on Heparin gtt. Patient accepted for either Nuclear Stress (not available at [facility] today or over the weekend) vs. diagnostic LHC at [facility] [place], pending bed availability. Accepting Duplex Trimmer Dr. Mustafa. ECHO ordered and pending. (2) Fever: Current visit: Yes Status: Acute Low grade temp in setting of potential acute bronchitis. CXR normal. On empirical coverage with Ceftriaxone, currently day #1. Blood culture pending. Urinalysis negative. Leukocytosis currently resolved. (3) CAD (coronary artery disease): Current visit: Yes Status: Chronic s/p STEMI, 2 cardiac caths at [facility] this spring with [address] (2nd catheterization due to suspected in-stent restenosis while on plavix), not on asa x 2 months, not on plavix due to suspected resistance, but on brillinta and eliquis. 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 Welch initiated low dose Apixaban while patient was on DAPT, then weaned aspirin off when the patient was changed to full dose anticoagulation. Restart aspirin given concern for potential Unstable Angina. Continue BB, high potency statin, and heparin drip with eliquis on hold. (4) Systolic CHF: Current visit: Yes Status: Chronic Elevated pro BNP, with prior ECHO at [facility] during time of intervention and cardiac event. Repeat ECHO now. Appears euvolemic by exam. Continue home regimen of oral furosemide, ARB, and treatment of CAD with aspirin, statin, and BB. (5) Paroxysmal atrial fibrillation: Current visit: Yes Status: Chronic Presently in NSR. Continue Apixaban and beta blockers - dose decreased due to persistant HR in the 40's even with patient awake. (6) Hypertension, essential: Current visit: Yes Status: Chronic Continue BB, ARB. (7) Hyperlipidemia: Current visit: Yes Status: Chronic Continue atorvastatin. Fasting lipids checked. (8) CKD (chronic kidney disease): Current visit: Yes Status: Acute Stage III, actually slightly better than baseline by GFR. Continue ARB, lasix, monitor kidney function. (9) DVT prophylaxis: Current visit: Yes Status: Acute Currently on anticoagulation as above. Subjective Interval history since last seen: 67 year-old man with a prior medical history of CAD with STEMI in October of 2017 requiring a cardiac cath at [facility] with placement of 2 drug eluting stents, as well as a follow up cardiac cath 2 days later for suspected in-stent restenosis/plavix resistance, requiring placement of a 3rd stent. The patient also has a history of paroxysmal Afib on anticoagulation, hypertension, and dyslipidemia, admitted from [facility] Emergency Department with complaints of intermittent chest pain with radiation down his left arm. 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 His symptoms included a burning like chest pain that radiated down his LUE. He states that these are the same symptoms as the time of his heart catheterization, and responded to nitroglycerin. His symptoms occured intermittently throughout the day, occuring numerous times, but never lasting more than a few minutes. He denies any associated dyspnea, diaphoresis, nausea, or concurrent vomiting. Initial work-up in the emergency department was significant for negative troponin, mild leukocytosis, and an EKG showing Q waves that appear unchanged in comparison to old EKGs from [facility]. His CXR was interpreted as negative, but he reports a cough, and was recorded as having a temperature of 37.6 overnight. He is currently chest pain free. Exam Narrative Exam Narrative: General: Appears comfortable, sitting up in bed, no acute distress. AAOX3 Neck: Supple CV: regular, no murmurs, rubs, or gallops Pulm: clear to auscultation bilaterally, without overt crackles, rhonchi, or wheezing Abdomen: + Bowel Sounds, nontender, nondistended Extremities: no edema Objective Objective Clinical Data: Abnormal lab results 05/09/18 05/09/18 05/09/18 Range/Units 16:00 16:00 16:00 WBC 13.12 H (4.4-10.8) k/cumm RDW 15.5 H (11.8-14.1) % MPV 12.5 H (8.0-11.0) fL Absolute Neutrophils 10.84 H (1.2-6.7) k/cumm Absolute Lymphocytes 1.10 L (1.2-3.4) k/cumm Absolute Monocytes 0.93 H (0.11-0.7) k/cumm D-Dimer 671 H (<500) ng/mlFEU Potassium (3.5-5.1) mmol/L Anion Gap 11.9 H (3-11) mmol/L Creatinine 1.67 H (0.70-1.30) mg/dL Glucose (70-100) mg/dL Magnesium (1.8-2.4) mg/dL Total Bilirubin 1.1 H (0.2-1.0) mg/dL Alkaline Phosphatase 152 H (46-116) U/L NT-Pro-B Natriuret Pep ( - 299) pg/mL Total Protein 8.9 H (6.4-8.2) g/dL LDL Cholesterol Direct (<100) mg/dL Urine Protein (Negative) mg/dL 05/09/18 05/09/18 05/10/18 Range/Units 16:00 21:15 06:20 WBC (4.4-10.8) k/cumm RDW (11.8-14.1) % MPV (8.0-11.0) fL Absolute Neutrophils (1.2-6.7) k/cumm Absolute Lymphocytes (1.2-3.4) k/cumm Absolute Monocytes (0.11-0.7) k/cumm D-Dimer (<500) ng/mlFEU Potassium 3.4 L (3.5-5.1) mmol/L Anion Gap (3-11) mmol/L Creatinine 1.68 H (0.70-1.30) mg/dL Glucose 103 H (70-100) mg/dL Magnesium 1.7 L (1.8-2.4) mg/dL Total Bilirubin (0.2-1.0) mg/dL Alkaline Phosphatase (46-116) U/L NT-Pro-B Natriuret Pep 3869 H ( - 299) pg/mL Total Protein (6.4-8.2) g/dL LDL Cholesterol Direct 100 H (<100) mg/dL Urine Protein 30 H (Negative) mg/dL 10/19/18 Range/Units 06:20 WBC (4.4-10.8) k/cumm RDW 15.5 H (11.8-14.1) % MPV 12.5 H (8.0-11.0) fL Absolute Neutrophils (1.2-6.7) k/cumm Absolute Lymphocytes (1.2-3.4) k/cumm Absolute Monocytes 0.82 H (0.11-0.7) k/cumm D-Dimer (<500) ng/mlFEU Potassium (3.5-5.1) mmol/L Anion Gap (3-11) mmol/L Creatinine (0.70-1.30) mg/dL Glucose (70-100) mg/dL Magnesium (1.8-2.4) mg/dL Total Bilirubin (0.2-1.0) mg/dL Alkaline Phosphatase (46-116) U/L NT-Pro-B Natriuret Pep ( - 299) pg/mL Total Protein (6.4-8.2) g/dL LDL Cholesterol Direct (<100) mg/dL Urine Protein (Negative) mg/dL Vital Signs Temperature 36.4 C L 05/10/18 10:07 Temperature Source Temporal Artery Scan 05/10/18 10:07 Pulse 81 05/10/18 14:33 Pulse Rhythm Regular 05/10/18 10:07 Pulse 57 L 05/10/18 14:33 Respiratory Rate 16 05/10/18 14:33 Respiratory Effort Non-Labored 05/10/18 10:07 Respiratory Depth Normal 05/10/18 10:07 Respiratory Pattern Normal 05/10/18 10:07 Blood Pressure 99/73 L 05/10/18 14:33 Blood Pressure Mean 79 05/10/18 14:33 Pulse Oximetry 97 05/10/18 12:00 Oxygen Delivery Method Room Air 05/10/18 10:07 Oxygen Flow Rate 0 05/10/18 10:07 Pain Level 0 05/10/18 10:07 Intake & Output 05/09/18 05/10/18 05/10/18 23:59 11:59 23:59 Intake Total 650 / 650 650 / 650 240 / 240 Output Total 250 / 250 800 / 800 625 / 625 Balance 400 / 400 -150 / -150 -385 / -385 Weight 112.1 kg 108.2 kg Intake: IV 50 / 50 Oral 650 / 650 600 / 600 240 / 240 Output: Urine 250 / 250 800 / 800 625 / 625 Other: Urine Color Yellow Yellow Yellow Urine Appearance Clear Clear Clear Urine Odor None Normal Normal Comment Pt performed a mid stream, clean catch UA at 2114. Sent to lab at 2129 in a sterile specimen cup with a time, dated, initialed UA Pt label in a bio bag, delivered to lab by Urszula RN/Rin Sup. Stool Occult Blood Negative Stool Size Small Stool Characteristics Liquid Voiding Methods Urinal Urinal Laboratory Results WBC 6.90 k/cumm (4.4-10.8) D 05/10/18 06:20 RBC 4.91 m/cumm (4.50-6.00) 05/10/18 06:20 Hgb 13.8 g/dL (13.5-17.5) 05/10/18 06:20 Hct 41.8 % (40.0-50.0) 05/10/18 06:20 MCV 85.1 fL (80-95) 05/10/18 06:20 MCH 28.1 pg (27.0-33.0) 05/10/18 06:20 MCHC 33.0 g/dL (32.0-36.0) 05/10/18 06:20 RDW 15.5 % (11.8-14.1) H 05/10/18 06:20 Plt Count 181 x1000/uL (130-400) 05/10/18 06:20 MPV 12.5 fL (8.0-11.0) H 05/10/18 06:20 Immature Gran % 0.3 05/10/18 06:20 Neutrophils % 64.1 05/10/18 06:20 Lymphocytes % 22.0 05/10/18 06:20 Monocytes % 11.9 05/10/18 06:20 Eosinophils % 1.6 05/10/18 06:20 Basophils % 0.1 05/10/18 06:20 Absolute Neutrophils 4.42 k/cumm (1.2-6.7) 05/10/18 06:20 Absolute Lymphocytes 1.52 k/cumm (1.2-3.4) 05/10/18 06:20 Absolute Monocytes 0.82 k/cumm (0.11-0.7) H 05/10/18 06:20 Absolute Eosinophils 0.11 k/cumm (0.0-0.7) 05/10/18 06:20 Absolute Basophils 0.01 k/cumm (0.0-0.2) 05/10/18 06:20 D-Dimer 671 ng/mlFEU (<500) H 05/09/18 16:00 Sodium 141 mmol/L (136-145) 05/10/18 06:20 Potassium 3.4 mmol/L (3.5-5.1) L 05/10/18 06:20 Chloride 103 mmol/L (98-107) 05/10/18 06:20 Carbon Dioxide 29.0 mmol/L (21.0-32.0) 05/10/18 06:20 Anion Gap 9.0 mmol/L (3-11) 05/10/18 06:20 BUN 18 mg/dL (7-18) 05/10/18 06:20 Creatinine 1.68 mg/dL (0.70-1.30) H 05/10/18 06:20 Estimated GFR/1.73 m2 41.21 (mL/min/1.73m2) 05/10/18 06:20 Glucose 103 mg/dL (70-100) H 05/10/18 06:20 Calcium 8.6 mg/dL (8.5-10.1) 05/10/18 06:20 Magnesium 1.7 mg/dL (1.8-2.4) L 05/10/18 06:20 Total Bilirubin 1.1 mg/dL (0.2-1.0) H 05/09/18 16:00 Conjugated Bilirubin 0.17 mg/dL (0.00-0.20) 05/09/18 16:00 AST 27 U/L (15-37) 05/09/18 16:00 ALT 41 U/L (12-78) 05/09/18 16:00 Alkaline Phosphatase 152 U/L (46-116) H 05/09/18 16:00 Troponin I 0.02 ng/mL (0.00-0.06) 05/10/18 06:20 NT-Pro-B Natriuret Pep 3869 pg/mL (-299) H 05/09/18 16:00 Total Protein 8.9 g/dL (6.4-8.2) H 05/09/18 16:00 Albumin 4.6 g/dL (3.4-5.0) 05/09/18 16:00 Triglycerides 97 mg/dL (30-150) 05/10/18 06:20 Total Cholesterol 163 mg/dL (50-200) 05/10/18 06:20 LDL Cholesterol Direct 100 mg/dL (<100) H 05/10/18 06:20 HDL Cholesterol 48 mg/dL (40-60) 05/10/18 06:20 Urine Color Yellow (Yellow) 05/09/18 21:15 Urine Clarity Clear 05/09/18 21:15 Urine pH 5.5 (5-8) 05/09/18 21:15 Ur Specific Caspar 1.015 (1.005-1.025) 05/09/18 21:15 Urine Protein 30 mg/dL (Negative) H 05/09/18 21:15 Urine Ketones Negative mg/dL (Negative) 05/09/18 21:15 Urine Blood Negative (Negative) 05/09/18 21:15 Urine Nitrite Negative (Negative) 05/09/18 21:15 Urine Bilirubin Negative (Negative) 05/09/18 21:15 Urine Urobilinogen 0.2 EU/dL (Up TO 0.2) 05/09/18 21:15 Ur Leukocyte Esterase Negative (Negative) 05/09/18 21:15 Urine RBC Negative (0-2) 05/09/18 21:15 Urine WBC Negative HPF (0-5) 05/09/18 21:15 Ur Epithelial Cells Negative HPF (Negative) 05/09/18 21:15 Urine Crystals Negative HPF (Negative) 05/09/18 21:15 Urine Bacteria Rare HPF (Negative) 05/09/18 21:15 Urine Casts Negative LPF (Negative) 05/09/18 21:15 Urine Mucus Trace (Negative) 05/09/18 21:15 Urine Other Negative (Negative) 05/09/18 21:15 Ur Culture Indicated? C&s done as ordered 05/09/18 21:15 Urine Glucose Negative mg/dL (Negative) 05/09/18 21:15
[2018-05-10 19:17] LABS: PTT Activated 26.7 sec (21.0-31.4)
[2018-05-10] MEDS: Potassium Chloride 20 MEQ TABCR PO (19:25)
[2018-05-10] MEDS: Atorvastatin 40 MG TAB 80 MG PO (19:26)
== END 2018-05-10 19:30 | disposition short-term general hospital (02) ==
LOC: ER 18:57 → ICU 05-10 07:13
PROVIDERS: Admitting Provider Internal Medicine; Emergency Provider Student in an Organized Health Care Education/Training Program; PCP Internal Medicine; Visit Provider Internal Medicine
DX: R07.9 Chest pain, unspecified (principal); R50.9 Fever, unspecified; I25.10 Atherosclerotic heart disease of native coronary artery without angina pectoris; I25.2 Old myocardial infarction; Z79.01 Long term (current) use of anticoagulants; I50.22 Chronic systolic (congestive) heart failure; I48.0 Paroxysmal atrial fibrillation; E78.5 Hyperlipidemia, unspecified; N18.9 Chronic kidney disease, unspecified; I13.0 Hypertensive heart and chronic kidney disease with heart failure and stage 1 through stage 4 chronic kidney disease, or unspecified chronic kidney disease; Z95.5 Presence of coronary angioplasty implant and graft; Z23 Encounter for immunization
CPT/HCPCS: 36410; 36415; 80048; 80053; 80061; 80076; 83721; 87040; 90471; 90658; 93005; 99220; 99233; 99285; 71045; 81003; 81015; 83735; 83880; 84484; 85025; 85379; 85730; 87086; 93010; 93306; G0378; J0696; J3490

== ENCOUNTER 2019-03-07 10:41 | Outpatient (REF) | payer OTHER, MEDICARE, SELFPAY ==
[2019-03-07 20:58] LABS: Abs Immature Grans 0.03 k/cumm (0.0-0.09); Absolute Basophil Count 0.02 k/cumm (0.0-0.2); Absolute Eosinophil Count 0.11 k/cumm (0.0-0.7); Absolute Monocyte Count 0.52 k/cumm (0.11-0.7); Absolute Neutrophil Count 3.33 k/cumm (1.2-6.7); Basophils % 0.4; Eosinophils % 2.1; HCT 45.9 % (40.0-50.0); HGB 14.7 g/dL (13.5-17.5); Immature Grans % 0.6; Lymphocytes % 24.5; Mean Corpuscular Hemoglobin 27.1 pg (27.0-33.0); Mean Corpuscular Volume 84.5 fL (80-95); Mean Platelet Volume 14.4 fL (8.0-11.0); Monocytes % 9.8; Neutrophils % 62.6; Platelet Count 240 x1000/uL (130-400); RBC 5.43 m/cumm (4.50-6.00); RBC Distribution Width 14.5 % (11.8-14.1); White Blood Cell Count 5.31 k/cumm (4.4-10.8)
[2019-03-07 21:05] LABS: ALT 41 U/L (12-78); AST 32 U/L (15-37); Albumin 4.1 g/dL (3.4-5.0); Alkaline Phosphatase 153 U/L (46-116); Anion Gap 10.8 mmol/L (3-11); BUN 21 mg/dL (7-18); Bilirubin, Total 0.6 mg/dL (0.2-1.0); CO2 26.2 mmol/L (21.0-32.0); Calcium 8.7 mg/dL (8.5-10.1); Chloride 107 mmol/L (98-107); Estimated GFR 55.23 (mL/min/1.73m2); Glucose 86 mg/dL (70-100); NT-proBNP 293 pg/mL; Potassium 4.3 mmol/L (3.5-5.1); Sodium 144 mmol/L (136-145); Total Protein 7.4 g/dL (6.4-8.2)
[2019-03-10 10:16] LABS: Hepatitis C Ab w Rflx HCV PCR Negative (NEGAT)
== END 2019-03-07 11:01 ==
LOC: NCHCN 10:41
PROVIDERS: PCP Internal Medicine; Visit Provider Nurse Practitioner Family
DX: I50.9 Heart failure, unspecified (principal); R60.0 Localized edema; M79.661 Pain in right lower leg; Z11.59 Encounter for screening for other viral diseases
CPT/HCPCS: 80053; 86803; 83880; 85025

== ENCOUNTER 2019-03-07 11:12 | Outpatient (CLI) | payer OTHER, MEDICARE, SELFPAY ==
--- NOTE | 2019-03-07 11:50 | DI.US_ITS ---
SYMPTOMS/DIAGNOSIS: CALF PAIN, M79.661 DUPLEX VENOUS ULTRASOUND RIGHT LOWER EXTREMITY: Duplex evaluation of the deep venous system was performed according to the usual protocol. The deep veins are freely compressible throughout to the level of the popliteal veins. There is normal doppler flow visible throughout and there is excellent flow augmentation with manual calf compression. CONCLUSION: No evidence of deep venous thrombosis.
== END 2019-03-07 11:32 ==
PROVIDERS: PCP Internal Medicine; Visit Provider Nurse Practitioner Family
DX: M79.661 Pain in right lower leg (principal)
CPT/HCPCS: 93971

== ENCOUNTER 2019-12-30 18:08 | Outpatient (REF) | payer OTHER, MEDICARE, SELFPAY ==
[2019-12-30 21:38] LABS: Anion Gap 10.2 mmol/L (3-11); BUN 24 mg/dL (7-18); CO2 26.8 mmol/L (21.0-32.0); CREATININE 1.59 mg/dL (0.70-1.30); Calcium 8.7 mg/dL (8.5-10.1); Calculated LDL 82 mg/dL (<100); Chloride 107 mmol/L (98-107); Cholesterol 159 mg/dL (<200); Estimated GFR 43.64 (mL/min/1.73m2); Glucose 88 mg/dL (74-106); HDL Cholesterol 44 mg/dL (40-60); Potassium 4.2 mmol/L (3.5-5.1); Sodium 144 mmol/L (136-145); TSH 1.13 uIU/mL (0.36-3.74); Triglyceride 166 mg/dL (<150)
[2019-12-30 22:08] LABS: FREE T4 0.84 ng/dL (0.76-1.46)
== END 2019-12-30 18:28 ==
LOC: NCHCN 18:08
PROVIDERS: PCP Internal Medicine; Visit Provider Internal Medicine
DX: I10 Essential (primary) hypertension (principal); E78.5 Hyperlipidemia, unspecified; R94.6 Abnormal results of thyroid function studies
CPT/HCPCS: 80048; 80061; 84439; 84443

== ENCOUNTER 2020-02-17 18:07 | Outpatient (REF) | payer OTHER, MEDICARE, SELFPAY ==
--- NOTE | 2020-02-17 16:20 | SKI_PTH ---
PATIENT: Uziel Romano LOC: [facility] U#:[id number] AGE/SX: 69/M ROOM: RE02/17/[address]: Santiago Ballard : 1950 BED: DIS: 02/17/2020 SPEC #: [id number] RECD: 02/18/20 12:29 STATUS: BORIS REQ #: [id number] ÁLVARO: 02/17/20 16:[address]: Santiago Ballard DEPT: Surgical Specimen RECD BY: Melissa Cota ENTERED: 02/18/20 12:29 SP TYPE: JAMAL OT DR: Diallo Booth Tissues: 1 - SKIN BIOPSY(SHAVE/PUNCH) Procedures: SKIN LEVEL 4 Comments: [id number]
== END 2020-02-17 18:27 ==
LOC: NCHCN 18:07
PROVIDERS: PCP Internal Medicine; Visit Provider Physician Assistant
DX: L82.1 Other seborrheic keratosis (principal)
CPT/HCPCS: 88305

== ENCOUNTER 2020-03-25 00:45 | Outpatient (CLI) | payer OTHER, MEDICARE, SELFPAY ==
--- NOTE | 2020-03-25 09:00 | DI.NM_ITS ---
APPROVED REPORT Exam: Pharmacologic Patient Location: Out-Patient Room/Bed: Stress Nurse: Ambreen Carcamo RN BMI: 32.41 Baseline Rhythm: Sinus Rhythm Comment: Old Anterior Infarct. Indications: Patient states for the past few months he has been having intermittent left chest and le ft arm ???burning??? pain both at rest and with activity. He reports increased frequency of the left chest/arm burning over the last few weeks. He states he may get some relief with SL Nitro. Medical History Medical History: Ischemic Cardiomyopathy, CKD 3, Atrial Fibrillation, STEMI, CAD, Anxiety. Cardiac Medications: Atorvastatin, Metoprolol Succinate, Eliquis, Nitrostat, Furosemide, Amlodipine B esylate, Candesartan Celexitil, Brilinta, Isosorbide Mononitrate, Ezetimibe. Allergies: Lisinopril, Depakote. Cardiac Risk Factors: FHX of CAD, HTN, Hyperlipidemia Previous Cardiac Procedures: PCI--3 stents in 2018 per patient. Pretest Chest Pain Characteristics: None Exercise History: Physically active Stress Test Details Test: Pharmacologic stress testing performed using 0.4 mg of regadenoson per 5 mL given IV over 10 s econds. Reason for pharmacologic stress test: Unable to stop beta heath per MD. Nuclear Acquisition: Rest Tc-99m/Stress Tc-99m 1 day Rest Isotope: Tc-99m Sestamibi. Dose: 10.4 Date: 03/25/2020 Injection Time: 0845 Stress Isotope: Tc-99m Sestamibi. Dose: 36.6 Date: 03/25/2020 Injection Time: 0900 HR Resting HR Supine: 73 bpm Max Heart Rate (APMHR): 153.106069 bpm Target HR (85% APMHR): 130.081876 bpm Max HR Achieved: 94 bpm % of APMHR: 61.44 BP Resting BP Supine: 134/74 mmHg Max BP: 134/74 mmHg ECG Resting ECG: Sinus Rhythm Ectopy: Occasional PVC's ST Change: No significant ST segment changes noted. Patient to ER: 0945 Reason Why: Patient was sent to the waiting room, at approximately 0915, after Lexiscan portion of st ress test while waiting for the imaging portion. At approximately 0930 patient notified staff of sign ificant left chest/arm burning pain (9/10). Patient was given 0.4 mg of Nitroglycerine SL at 0932. At 0933 left chest/arm burning pain rated 6/10 with blood pressure 120/78 and heart rate 61. Patient was given a second dose of 0.4 mg of Nitroglycerine SL at 0937--left chest/arm pain now 4/10. At 0943 his chest pain was rated 2/10. Frida Carcamo RN notified Dr. Griffith of situation. At 0945 patient was brought to the emergency department. Frida Carcamo RN gave report to Dr. Irwin. Staff in the ED as sumed responsibility for the patient. Medications Administered Nitroglycerlin (0.4 mg at 0932) Nitroglycerlin (0.4 mg at 0937) Clinical Stress Symptoms: Patient reported 9/10 left sided chest/arm burning pain at 1 minute 43 seconds pos t Lexiscan injection to approximately 9 minutes post Lexiscan injection. Stress ECG Conclusion 1. Echocardiogram is consistent with an anterior wall myocardial infarction of indeterminate age 2. He underwent pharmacologic stress with regadenoson 3. Blunted heart rate and blood pressure response to pharmacologic stress 4. Peak heart rate was 61% of predicted for age. Electrocardiographically the test was nondiagnostic due to inadequate heart rate 5. The patient experienced chest pain following the EKG portion of the test, unrelieved with sublingu al lingual nitroglycerin for which he was then referred to the emergency room Stress Test Summary STAGE HR BP Symptoms NOTES Supine 73 134/74 1 min post Lexiscan injection 80 130/78 3 min post Lexiscan injection 84 128/82 6 min post Lexiscan injection 66 132/70 9 min post Lexiscan injection 85 128/82 MPI Conclusion Anteroapical infarction without ischemia. EF 34% Radiologist Interpretation No convincing ischemia by MPI criteria. Radiologist Interpretation by: Clive Pena MD Interpretation Date/Time: 04/09/2020 08:41:34
[2020-03-25] MEDS: Regadenoson 0.4 MG/5 ML SYR IVP ×2 (09:32→09:37)
== END 2020-03-25 01:05 ==
PROVIDERS: PCP Internal Medicine; Visit Provider Internal Medicine
DX: R07.89 Other chest pain (principal); Z82.49 Family history of ischemic heart disease and other diseases of the circulatory system; I10 Essential (primary) hypertension; E78.5 Hyperlipidemia, unspecified; I25.2 Old myocardial infarction
CPT/HCPCS: 78452; 93017; J2785

== ENCOUNTER 2020-03-25 09:43 | Observation (INO) | payer OTHER, MEDICARE, SELFPAY ==
[2020-03-25] VITALS (21 sets, daily range): BP systolic 113–134; BP diastolic 71–84; PULSE 52–66; RESP 10–32; TEMP 36.2–36.7; O2SAT 93–100
--- NOTE | 2020-03-25 09:45 | RT.EKG_ITS ---
APPROVED REPORT Exam: Resting ECG Patient Location: E HR:65 bpm ECG Measurements Heart Rate 65 AXIS ND 162 P 39 QRSd 87 QRS -38 QT 419 T 13 QTc 437 Conclusion EKG 9: 51 Rate 65, intervals normal, sinus rhythm, no significant ST elevations or depressions, Q waves are not ed in anterior leads, as well as 3 and aVF. Appears unchanged from prior EKG from greater than 1 yea r ago.
--- NOTE | 2020-03-25 10:01 | W.ED.GENAD ---
Discharge Plan Disposition Patient Disposition: [facility] INPATIENT Condition: Stable Discharge Details Chief Complaint: Chest Pain Clinical Impression: Chest pain Primary Care Provider: Diallo Booth ED Provider: Jesus Irwin Home Meds and New Rx's Prescriptions: No Action atorvastatin [Lipitor] 40 MG tablet 80 mg PO DAILY RF: 0 pantoprazole [Protonix] 20 MG tablet,delayed release (DR/EC) 40 mg PO DAILY RF: 0 Brilinta 90 MG tablet 90 mg PO BID RF: 0 Eliquis 2.5 MG tablet 5 mg PO BID 30 Days Qty: 60 RF: 11 venlafaxine 37.5 MG tablet 37.5 mg PO DAILY RF: 0 furosemide [Lasix] 40 mg Tablet 20 mg PO DAILY RF: 0 candesartan 4 mg Tablet 4 mg PO DAILY RF: 0 isosorbide mononitrate 30 mg tablet extended release 24 hr 30 mg PO DAILY RF: 0 amlodipine 2.5 mg tablet 2.5 mg PO DAILY RF: 0 ezetimibe 10 mg tablet 10 mg PO DAILY RF: 0 metoprolol tartrate 50 MG tablet 25 mg PO DAILY RF: 0 Medical Decision Making 69-year-old male with a past medical history of coronary artery disease, myocardial infarction in 2018 with 3 subsequent stents, hyper lipidemia, hypertension, distant tobacco abuse, atrial fibrillation currently on Brilinta and Eliquis who presents today for evaluation of chest pain. Patient states that he was having a nuclear stress test today, initial heart rate was 73, he received the stimulant medication, within 1 minute his heart rate went up to the mid 80s, it was during this time that he developed left-sided chest pain which radiated to his left arm. He states that it was identical to the symptoms he had when he had his previous myocardial infarction in 2018. He was given 2 nitroglycerin and his pain subsequently went down from 8/10 to 6/10 with the first nitroglycerin, and from 6/10 to 2/10 with the second nitroglycerin. Currently states he is otherwise very comfortable. He denies any tearing or ripping sensation in his chest. He denies any shortness of breath or pleuritic chest pain. He states that he has been taking his Eliquis and other medications as directed. He has not missed any doses. Family history is negative for dissection, however he does have a history of an aneurysm for 2 different second-degree relatives. No first-degree relatives though. No other complaints or modifying factors. Of late he denies any recent chest pain or shortness of breath with exertion. Physical exam demonstrates intact radial pulses, stable blood pressure and heart rate. Exam demonstrates no other concerning abnormalities. At this time with his pain relieved with nitroglycerin, with his increasing chest pain that he states is identical to his previous WI, a on during the stress test, this obviously does concern me for cardiac etiology. Signs and symptoms appear inconsistent with dissection, or aneurysm for that matter at this time. EKG demonstrates no significant changes, no evidence of STEMI, and in fact EKG during stress testing did not show any significant changes. We will continue to monitor closely and reassess but because of his notably elevated heart score, his clear history of cardiac etiologies and is concerning symptomatology we will consult [facility] after work-up for potential evaluation for stenting. 11:04 AM The patient's laboratory work-up has returned, CBC normal, electrolytes stable, initial troponin less than 0.05, proBNP 474 showing no signs of significant heart strain or congestive heart failure both clinically or from a laboratory perspective. EKG remained stable. Chest x-ray negative for acute process, no mediastinal widening. Patient's pain notably improved, however he still does admit to some mild burning sensation, we will give a GI cocktail as well. I did contact [facility] and discussed the case with Dr. Lagos of cardiology, at this time they are accepting the patient with they do not have a bed immediately available. They expect that 1 will be available tomorrow morning. They do recommend heparinization starting 12 hours after his last Eliquis dose. His last Eliquis dose was at 5:30 AM, and so heparinization should begin at 5:30 PM. They do recommend getting a formal cardiac echocardiogram here while waiting. No additional medication changes or recommendations. Right now the patient is remaining stable. He has no other complaints. I contacted the hospitalist Dr. Smith discussed the case with her. She agrees with the assessment and plan. She will place admission orders. Additionally the plan for heparinization starting 12 hours after last Eliquis dose was discussed with her as well. I have extensively reviewed the treatment plan with the patient. I have addressed all patient concerns at this time. I have also discussed the plan with the admitting physician and they agree with the current assessment and plan and have agreed to assume responsibility for the patient. All parties demonstrate verbal understanding and agreement with our assessment and plan at this time. Additionally of note [facility] did state that even if the troponin does go up this would not change the necessity or timing of transfer, however if the patient does become unstable based on pain or change in vital signs then they should be recontacted. EKG 9: 51 Rate 65, intervals normal, sinus rhythm, no significant ST elevations or depressions, Q waves are noted in anterior leads, as well as 3 and aVF. Appears unchanged from prior EKG from greater than 1 year ago. FINDINGS: MEDIASTINUM: Normal. HEART: Normal. PULMONARY VASCULATURE: Normal. LUNGS: Clear. PLEURAL SPACE: No pleural effusion or pneumothorax. BONE:Within normal limits for the patient's age. OTHER FINDINGS:Normal. IMPRESSION: No acute pulmonary findings. HPI General Date/Time Provider Initiated Documentation: 03/25/20 09:45. HPI Narrative: 69-year-old male with a past medical history of coronary artery disease, myocardial infarction in 2018 with 3 subsequent stents, hyper lipidemia, hypertension, distant tobacco abuse, atrial fibrillation currently on Brilinta and Eliquis who presents today for evaluation of chest pain. Patient states that he was having a nuclear stress test today, initial heart rate was 73, he received the stimulant medication, within 1 minute his heart rate went up to the mid 80s, it was during this time that he developed left-sided chest pain which radiated to his left arm. He states that it was identical to the symptoms he had when he had his previous myocardial infarction in 2018. He was given 2 nitroglycerin and his pain subsequently went down from 8/10 to 6/10 with the first nitroglycerin, and from 6/10 to 2/10 with the second nitroglycerin. Currently states he is otherwise very comfortable. He denies any tearing or ripping sensation in his chest. He denies any shortness of breath or pleuritic chest pain. He states that he has been taking his Eliquis and other medications as directed. He has not missed any doses. Family history is negative for dissection, however he does have a history of an aneurysm for 2 different second-degree relatives. No first-degree relatives though. No other complaints or modifying factors. Of late he denies any recent chest pain or shortness of breath with exertion. Related Data Home Medications Medication Instructions Recorded Confirmed venlafaxine 37.5 mg PO DAILY 11/20/13 03/25/20 apixaban [Eliquis] 5 mg PO BID 30 Days #60 tab-cap 01/30/18 03/25/20 atorvastatin [Lipitor] 80 mg PO DAILY tab-cap 01/30/18 03/25/20 pantoprazole [Protonix] 40 mg PO DAILY tab-cap 01/30/18 03/25/20 ticagrelor [Brilinta] 90 mg PO BID tab-cap 01/30/18 03/25/20 furosemide [Lasix] 20 mg PO DAILY 05/09/18 03/25/20 amlodipine 2.5 mg PO DAILY 03/25/20 03/25/20 candesartan 4 mg PO DAILY 03/25/20 03/25/20 ezetimibe 10 mg PO DAILY 03/25/20 03/25/20 isosorbide mononitrate 30 mg PO DAILY 03/25/20 03/25/20 metoprolol tartrate 25 mg PO DAILY 03/25/20 03/25/20 Previous Rx's Medication Instructions Recorded apixaban [Eliquis] 5 mg PO BID 30 Days #60 tab-cap 01/30/18 Allergies Allergy/AdvReac Type Severity Reaction Status Date / Time lisinopril Allergy Severe Anaphylaxsi Verified 05/09/18 15:55 s divalproex sodium Allergy Swelling/Ed Unverified 03/25/20 09:57 [From Depakote] shayy General Stated Complaint: Chest Pain MANOJ: 2 Review of Systems All systems reviewed & are unremarkable except as noted in HPI and below PFSH Medical History CAD (coronary artery disease) (Chronic) s/p STEMI in October of 2017, cardiac cath at [facility] on 11/19/17 with NASIM to mid LAD and mid RCA; recatheterization on 11/21/17 with stent to proximal LAD (?restenosis/plavix resistance), on brillinta Hyperlipidemia (Chronic) Hypertension, essential (Chronic) Paroxysmal atrial fibrillation (Chronic) on eliquis Systolic CHF (Chronic) Last known EF 46% in 11/2017 Surgical History Colonoscopy - IV Sedation (02/28/16) H/O cardiac catheterization (Chronic) x2 History of appendectomy (Chronic) Family History Mother CAD (coronary artery disease) Stroke Hypertension Sister Brain cancer Social History Smoking/Tobacco Use Status: Former Tobacco Use Alcohol Intake: former Drug use: Never Substance use type: does not use 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 3.ENT: Atraumatic external nose and ears. Moist MM. Neck: Symmetric, trachea midline, No thyromegaly. 4.CVS: +S1/S2, No murmurs or gallops. Peripheral pulses 2+ and equal in all extremities. Brisk capillary refill in all extremities. Radial pulses +2 bilaterally 5.RESP: Unlabored respiratory effort. Clear to auscultation bilaterally. No wheezes rales or rhonchi 6.GI: Soft, Nontender/Nondistended, No hepatosplenomegaly. No guarding or rebound. 7.MSK: Normocephalic/Atraumatic, Extremities w/o deformity or ttp No cyanosis or clubbing, Normal movement of all extremities, no calf tenderness. 8.Skin: Warm, Dry. No rashes or lesions. 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 Sensation grossly intact, no focal neurologic deficits. 10.Psych: (AAO) x3. Appropriate mood and affect Course Vital Signs Vital signs: Vital Signs Temperature 36.7 C 03/25/20 09:52 Pulse 63 03/25/20 09:52 Respiratory Rate 18 03/25/20 09:52 Blood Pressure 116/79 03/25/20 09:52 Pulse Oximetry 97 03/25/20 09:52 Temperature 36.7 C 03/25/20 09:52 Temperature Source Skin 03/25/20 09:52 Pulse 63 03/25/20 09:52 Respiratory Rate 18 03/25/20 09:52 Blood Pressure 116/79 03/25/20 09:52 Blood Pressure Position Sitting 03/25/20 09:52 Pulse Oximetry 97 03/25/20 09:52 Oxygen Delivery Method Room Air 03/25/20 09:52 Oxygen Flow Rate 0 03/25/20 09:52 Pain Level 2 03/25/20 09:52
[2020-03-25 10:06] LABS: Abs Immature Grans 0.12 10^3/uL (0.0-0.06); Absolute Basophil Count 0.04 10^3/uL (0.0-0.2); Absolute Eosinophil Count 0.08 10^3/uL (0.0-0.7); Absolute Lymphocyte Count 2.06 10^3/uL (1.2-3.4); Absolute Monocyte Count 0.66 10^3/uL (0.1-0.8); Absolute Neutrophil Count 5.48 10^3/uL (1.2-6.7); Basophils % 0.5; Eosinophils % 0.9; HCT 43.2 % (40.0-50.0); Immature Grans % 1.4; Lymphocytes % 24.4; MCH 27.6 pg (27.0-33.0); MCHC 32.4 % (32.0-36.0); MCV 85.2 fL (80-95); Monocytes % 7.8; Nucleated RBC 0 %; Platelet Count 231 10^3/uL (130-400); RBC 5.07 10^6/uL (4.36-5.78); RDW 13.9 % (11.8-14.1); RDW-SD 43.1 fL; WBC 8.44 10^3/uL (4.4-10.8)
[2020-03-25] MEDS: Normal Saline 500 ML IV (10:13)
[2020-03-25 10:21] LABS: PTT Activated 24.5 sec (21.0-31.4); Prothrombin Time 10.4 sec (9.3-11.0)
[2020-03-25 10:28] LABS: ALT 81 U/L (16-63); AST 25 U/L (15-37); Albumin 3.4 g/dL (3.4-5.0); Alkaline Phosphatase 107 U/L (46-116); Anion Gap 6.2 mmol/L (3-11); BUN 27 mg/dL (7-18); Bilirubin, Total 0.7 mg/dL (0.2-1.0); CO2 29.8 mmol/L (21.0-32.0); CREATININE 1.35 mg/dL (0.70-1.30); Calcium 8.9 mg/dL (8.5-10.1); Chloride 105 mmol/L (98-107); Estimated GFR 52.72 (mL/min/1.73m2); Glucose 98 mg/dL (74-106); NT-proBNP 474 pg/mL (<300); Potassium 3.9 mmol/L (3.5-5.1); Sodium 141 mmol/L (136-145); Total Protein 6.6 g/dL (6.4-8.2); Troponin I < 0.05 ng/mL (<0.06)
--- NOTE | 2020-03-25 10:36 | DI.RAD_ITS ---
EXAM: XR PORTABLE CHEST AP CLINICAL HISTORY: chest pain during stress test TECHNIQUE: 2D digital imaging was performed. COMPARISON: CR XR PORTABLE CHEST AP from 05/09/2018 FINDINGS: MEDIASTINUM: Normal. HEART: Normal. PULMONARY VASCULATURE: Normal. LUNGS: Clear. PLEURAL SPACE: No pleural effusion or pneumothorax. BONE:Within normal limits for the patient's age. OTHER FINDINGS:Normal. IMPRESSION: No acute pulmonary findings. DATA REPOSITORY: RADIATION DOSE DELIVERED:
--- NOTE | 2020-03-25 11:00 | DI.US_ITS ---
APPROVED REPORT EXAM: Comprehensive 2D, Doppler, and color-flow Echocardiogram Patient Location: ER Room/Bed: 2 [employer] Operator: Hannah Ace RDCS (AE) Indications: Chest pain, A Fib, CAD Other Information Study Quality: Adequate Conclusion The left ventricular wall thickness and chamber size. Estimated ejection fraction is 40 to 45%. The re is global hypokinesis Normal right ventricular size and systolic function Normal atrial size, both left and right The aortic valve is trileaflet and mildly sclerotic without stenosis or regurgitation Mildly thickened mitral leaflets. Moderate mitral regurgitation Normal pulmonic and tricuspid valves. Trace to [place] and tricuspid regurgitation Wall motion Left Ventricle The left ventricle is normal size. Left ventricular systolic function is mildly decreased. There is n ormal left ventricular wall thickness. There is no ventricular septal defect visualized. LVEF is 40%- 45%. Right Ventricle The right ventricle is normal size. The right ventricular systolic function is normal. The RVSP is 27 .7 mmHg. Atria The left atrium size is normal. The right atrium size is normal. The interatrial septum is intact wit h no evidence for an atrial septal defect. Aortic Valve The Aortic valve is sclerotic. Aortic valve is trileaflet. There is no aortic valvular stenosis. No a ortic regurgitation is present. Mitral Valve Mildly thickened mitral leaflets No evidence of mitral valve stenosis. Moderate mitral regurgitation. Tricuspid Valve The tricuspid valve is normal in structure. There is no tricuspid valve stenosis. Trace tricuspid reg urgitation. Pulmonic Valve The pulmonary valve is normal in structure. There is no pulmonic valvular stenosis. Trace pulmonic re gurgitation. Great Vessels The aortic root is normal in size. The ascending aorta is mildly dilated. Aortic arch is normal in ca liber. IVC is normal in size and collapses >50% with inspiration. Pericardium There is no pericardial effusion. 2D Dimensions IVSD d PLAX 1.01 cm M: 0.6-1.2 LV Vol A2C d MOD 135.1 mL LVPW d PLAX 1.02 cm M: 0.6 - 1.2 LV Vol A4C d MOD 176.6 mL LVID d PLAX 5.85 cm M: 4.2 - 5.8 LA vol/ BSA A2C s A-L 19.7 mL/m2 LVDs 4.65 cm M: 2.5 - 4.0 LA vol/ BSA A4C s A-L 33.7 mL/m2 Ao Root d 3.02 cm M: 3.1 - 3.7 LA Vol/ BSA Biplane s A-L 28.0 mL/m2 RA Area A4C 21.06 cm2 LA Area A4C s MOD 23.95 cm2 RA Vol/ BSA A4C s A-L 28.0 mL/m2 LA Area A2C s MOD 16.87 cm2 Ao Asc Diam d 3.81 cm M: 2.6 - 3.4 LV EF A4C MOD 40.8 % LV EF Teichholz 39.7 % LV EF A2C MOD 39.3 % LVEF (Guerrero's) 40.43 % M: 52 - 72 LV EF Biplane MOD 40.4 % LV Volume 112.91 mL M: 62 - 150 SV 63.58 mL LV Volume Index 49.30 mL/m2 M: 34 - 74 SV Index 27.72 mL/m2 LV Vol Biplane MOD 157.3 mL FS 19.60 % M-Mode TAPSE 2.40 cm (M/F) >1.7 LV Diastology MV E' medial 0.065 (>0.07 m/s) E/A Ratio 1.3 LV E/e MED 16.15 (<14) MV E Vmax 1.05 (0.4-1.3 m/s) MV E' lateral 0.121 (>0.1 m/s) MV A Vmax 0.80 (0.4-1.3 m/s) LV E/e LAT 8.60 (<14) MV E/A Ratio 1.28 MV E/E' medial 16.15 MV E/E' lateral 8.65 Aortic Valve LVOT Area 3.95 cm2 AoV Area Vmax 2.58 cm2 LVOT Vmax 0.91 m/s AoV Area/ BSA (Vmax) 1.13 cm2/m2 LVOT Mean Elbert. 0.61 m/s FRANK Mean Elbert. 2.53 cm2 LVOT Peak Grad 3.3 mmHg FRANK Mean Elbert. Index 1.10 cm2/m2 LVOT Mean Grad 1.7 mmHg LVOT VTI 0.205 m LVOT Diam s 2.20 cm AoV Vmax 1.39 m/s Velocity Ratio 0.65 AoV Mean Elbert. 0.95 m/s AoV Peak Grad 7.7 mmHg LVOT SV 80.73 mL AoV Mean Grad 4.0 mmHg AoV VTI 0.325 m AoV Area VTI 2.49 cm2 AoV Area/ BSA (VTI) 1.08 cm/m2 Mitral Valve MV DT 203 (160-240 msec) MR Vmax 5.05 m/s MV PHT 59 msec MR VTI 1.766 m MV Area PHT 3.74 cm2 MR Peak Grad 102.1 mmHg MV VTI 0.432 m MR Mean Grad 74.8 mmHg MV Area VTI 1.87 (4.0-6.0 cm2) MR PISA Radius 0.41 cm MR EROA 0.07 cm2 MR Aliasing Velocity 0.35 m/s MR PISA 1.04 cm2 Pulmonary Valve PV Vmax 1.06 (0.5-1.5 m/s) RVOT Peak Gr. 2.26 mmHg PV Peak Grad 4.5 mmHg RVOT Mean Gr. 1.00 mmHg PV Mean Grad 2.4 mmHg RVOT VTI 0.154 m PV VTI 0.233 m RVOT Vmax 0.75 m/s Tricuspid Valve TR Peak Grad 24.6 mmHg TR Vmax 2.48 m/s RA Pressure 3.00 mmHg RVSP (TR) 27.7 mmHg
[2020-03-25 14:41] LABS: Troponin I < 0.05 ng/mL (<0.06)
--- NOTE | 2020-03-25 18:00 | HPE_ITS ---
Date of service: 03/25/20 Time of Service: 18:00 Assessment and Plan Assessment and plan (1) Chest pain: Status: Acute Assessment and plan: In setting of pharmacological nuclear stress test. Monitor on tele. Troponins negative x2. Did have a positive stress test. [place] [facility] - where there is now a bed. (2) Abnormal nuclear stress test: Status: Acute Assessment and plan: As above (3) CAD (coronary artery disease): Status: Chronic Assessment and plan: As above - s/p NASIM x3. Heparinize, continue metoprolol, brillinta. (4) Paroxysmal atrial fibrillation: Status: Chronic Assessment and plan: Currently in NSR - hold eliquis while heparinizing. Continue metoprolol. (5) Chronic systolic CHF (congestive heart failure): Status: Chronic Assessment and plan: EF 45%. Euvolemic at this time. No change in tx. (6) DVT prophylaxis: Status: Acute Assessment and plan: On eliquis - transitioning to therapeutic heparin gtt. (7) Discharge planning issues: Status: Acute Assessment and plan: This H&P is also patient's discharge summary [place] [facility] [place]. He is full code. History of Present Illness History of Present Illness Chief Complaint: chest pain during stress test Narrative: Mr Romano is a 69 year old male with PMHx of CAD s/p STEMI in 2018 (NASIM to mid LAD and RCA, recath in 11/2017 with stent to proximal LAD), on brillinta, paroxysmal Afib on eliquis,, chronic systolic CHF (EF 40-45%), hypertension, hyperlipidemia, who was undergoing an MPI stress test today when he started to have chest pain after receiving lexiscan. The pain was sharp, radiated to the left armpit, was not accompanied by dizziness, shortness of breath, or nausea. He was given nitroglycerin in the stress lab, and it did not relieve his pain. He was sent to the ED, where the chest pain did eventually improve after the 2nd nitroglycerin. On my evaluation of the patient, he does describe residual L-sided chest pain, which he describes as tiny. He was given nitroglycerin. His EKG and troponins x [address] Irwin arranged for transfer of the patient [place] [facility] [place] (accepted by Dr Bagley) once there is a bed available, which is now. The patient was recommended to be switched from h is eliquis to heparin drip at the time of his next eliquis dose (8 pm), but it appears that he will be leaving us before it is due to start. We were asked to admit the patient until the transfer could take place. The patient was able to complete his nuclear stress test, which showed anteroapical ischemia, apical infarction, and EF 34%. He is medically stable with transfer and agrees to transfer [place] [facility] [place] is available. Review of Systems All systems reviewed & are unremarkable except as noted in HPI and below [facility] Medical History CAD (coronary artery disease) (Chronic) s/p STEMI in October of 2017, cardiac [place] [facility] [place]17 with NASIM to mid LAD and mid RCA; recatheterization on 11/21/17 with stent to proximal LAD (?restenosis/plavix resistance), on brillinta Hyperlipidemia (Chronic) Hypertension, essential (Chronic) Paroxysmal atrial fibrillation (Chronic) on eliquis Systolic CHF (Chronic) Last known EF 46% in 11/2017 Surgical History Colonoscopy - IV Sedation (02/28/16) H/O cardiac catheterization (Chronic) x2 History of appendectomy (Chronic) Family History Mother CAD (coronary artery disease) Stroke Hypertension Sister Brain cancer Social History Smoking/Tobacco Use Status: Former Tobacco Use Alcohol Intake: former Drug use: Never Substance use type: does not use 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[employer] Do you feel safe in your relationship?: Yes Meds Home Medications and Allergies Home Medications Medication Instructions Recorded Confirmed Type apixaban [Eliquis] 5 mg PO BID 30 Days #60 tab-cap 01/30/18 03/25/20 Rx atorvastatin [Lipitor] 80 mg PO DAILY tab-cap 01/30/18 03/25/20 History pantoprazole [Protonix] 40 mg PO DAILY tab-cap 01/30/18 03/25/20 History ticagrelor [Brilinta] 90 mg PO BID tab-cap 01/30/18 03/25/20 History furosemide [Lasix] 20 mg PO DAILY 05/09/18 03/25/20 History amlodipine 2.5 mg PO DAILY 03/25/20 03/25/20 History candesartan 4 mg PO DAILY 03/25/20 03/25/20 History ezetimibe 10 mg PO DAILY 03/25/20 03/25/20 History isosorbide mononitrate 30 mg PO DAILY 03/25/20 03/25/20 History metoprolol succinate 25 mg PO DAILY 03/25/20 03/25/20 History venlafaxine 37.5 mg PO DAILY 03/25/20 03/25/20 History Allergies Allergy/AdvReac Type Severity Reaction Status Date / Time lisinopril Allergy Severe Anaphylaxsi Verified 05/09/18 15:55 s divalproex sodium Allergy Swelling/Ed Unverified 03/25/20 09:57 [[facility] shayy Exam Narrative Exam Narrative: General: Very pleasant middle-aged male, A&Ox3, sitting comfortably in a chair, in great spirits Neurological: A&Ox3, no focal deficits Psychiatric: Appropriate speech pattern/content Skin: Visible skin intact HEENT: ATraumatic, normocephalic, EOMI, MMM, no goiter or JVD Cardiovascular: RRR, no m/r/g Lungs: CTAB Gastrointestinal: soft, nontender, nondistended Genitourinary: deferred Extremities: no edema BLEs, 1+ bilateral pedal pulses Results Imaging Additional studies: Echo: The left ventricular wall thickness and chamber size. Estimated ejection fraction is 40 to 45%. There is global hypokinesis Normal right ventricular size and systolic function Normal atrial size, both left and right The aortic valve is trileaflet and mildly sclerotic without stenosis or regurgitation Mildly thickened mitral leaflets. Moderate mitral regurgitation Normal pulmonic and tricuspid valves. Trace to [place] and tricuspid regurgitation CXR: No acute pulmonary findings. MPI: anteroapical ischemia, apical infarction, and EF 34%. EKG: HR 65, NSR, no acute ischemia Labs Result diagrams: 03/25/20 09:52 03/25/20 09:52 Labs: Laboratory Results - last 24 hr 03/25/20 03/25/20 03/25/20 09:52 09:52 09:52 WBC 8.44 RBC 5.07 Hgb 14.0 Hct 43.2 MCV 85.2 MCH 27.6 MCHC 32.4 RDW 13.9 Plt Count 231 MPV 11.0 Immature Gran % 1.4 Neutrophils % 65.0 Lymphocytes % 24.4 Monocytes % 7.8 Eosinophils % 0.9 Basophils % 0.5 Nucleated RBC % 0 Absolute Neutrophils 5.48 Absolute Lymphocytes 2.06 Absolute Monocytes 0.66 Absolute Eosinophils 0.08 Absolute Basophils 0.04 PT 10.4 INR 1.0 APTT 24.5 Sodium 141 Potassium 3.9 Chloride 105 Carbon Dioxide 29.8 Anion Gap 6.2 BUN 27 H Creatinine 1.35 H Estimated GFR/1.73 m2 52.72 Glucose 98 Calcium 8.9 Total Bilirubin 0.7 AST 25 ALT 81 H Alkaline Phosphatase 107 Troponin I < 0.05 NT-Pro-B Natriuret Pep 474 H Total Protein 6.6 Albumin 3.4 03/25/20 14:12 WBC RBC Hgb Hct MCV MCH MCHC RDW Plt Count MPV Immature Gran % Neutrophils % Lymphocytes % Monocytes % Eosinophils % Basophils % Nucleated RBC % Absolute Neutrophils Absolute Lymphocytes Absolute Monocytes Absolute Eosinophils Absolute Basophils PT INR APTT Sodium Potassium Chloride Carbon Dioxide Anion Gap BUN Creatinine Estimated GFR/1.73 m2 Glucose Calcium Total Bilirubin AST ALT Alkaline Phosphatase Troponin I < 0.05 NT-Pro-B Natriuret Pep Total Protein Albumin Last Vital Signs Temp 36.5 C 03/25/20 13:21 Pulse 52 L 03/25/20 13:21 Resp 17 03/25/20 13:21 BP 131/80 03/25/20 13:21 Pulse Ox 98 03/25/20 13:21 COVID-19 Screening Have you,or household,traveled outside [place] in last 14 days?: No Had IN PERSON contact w/suspected or confirmed C-19 person: No
[2020-03-25] MEDS: nitroGLYcerin 0.4 MG TAB SL (18:26)
[2020-03-25 18:38] LABS: Troponin I < 0.05 ng/mL (<0.06)
[2020-03-26 08:40] LABS: COVID-19 RT-PCR UVMMC Result Negative (Negative)
== END 2020-03-25 18:57 | disposition short-term general hospital (02) ==
LOC: ER 11:26 → MS 12:22
PROVIDERS: Admitting Provider Internal Medicine; Emergency Provider Student in an Organized Health Care Education/Training Program; PCP Internal Medicine; Visit Provider Internal Medicine
DX: R07.9 Chest pain, unspecified (principal); R94.39 Abnormal result of other cardiovascular function study; I48.0 Paroxysmal atrial fibrillation; I25.10 Atherosclerotic heart disease of native coronary artery without angina pectoris; Z95.5 Presence of coronary angioplasty implant and graft; I50.22 Chronic systolic (congestive) heart failure; Z79.01 Long term (current) use of anticoagulants; I25.2 Old myocardial infarction; Z11.59 Encounter for screening for other viral diseases; I11.0 Hypertensive heart disease with heart failure; E78.5 Hyperlipidemia, unspecified
CPT/HCPCS: 36415; 80053; 93005; 96360; 99223; 99285; U0003; 71045; 83880; 84484; 85025; 85610; 85730; 93010; 93306; 99220; G0378

== ENCOUNTER 2020-04-22 17:33 | Inpatient (IN) | payer OTHER, MEDICARE, SELFPAY ==
[2020-04-22] VITALS (31 sets, daily range): BP systolic 91–146; BP diastolic 46–97; PULSE 62–95; RESP 12–32; TEMP 36.3–36.6; O2SAT 90–99
--- NOTE | 2020-04-22 17:30 | RT.EKG_ITS ---
APPROVED REPORT Exam: Resting ECG Patient Location: E HR:73 bpm ECG Measurements Heart Rate 73 AXIS MO 150 P 44 QRSd 81 QRS -35 QT 380 T 20 QTc 402 Conclusion Sinus rhythm...normal P axis, V-rate 60- 99 Atrial premature complexes in couplets...pair SV complexes w/ short R-R Inferior infarct, old...Q >35mS, II III aVF Anteroseptal infarct, old...Q >40mS, V1-V2 no stemi
[2020-04-22] MEDS: Normal Saline Flush 10 ML SYR IVP ×2 (18:03→19:23)
[2020-04-22] MEDS: Normal Saline 1,000 ML 125 ML IV (18:04)
[2020-04-22 18:06] LABS: Abs Immature Grans 0.01 10^3/uL (0.0-0.06); Absolute Basophil Count 0.01 10^3/uL (0.0-0.2); Absolute Monocyte Count 0.69 10^3/uL (0.1-0.8); Absolute Neutrophil Count 3.45 10^3/uL (1.2-6.7); Basophils % 0.2; Eosinophils % 1.8; HCT 42.3 % (40.0-50.0); HGB 13.7 g/dL (13.5-17.5); Immature Grans % 0.2; Lymphocytes % 23.4; MCH 27.8 pg (27.0-33.0); MCHC 32.4 % (32.0-36.0); MPV 11.1 fL (8.0-11.0); Monocytes % 12.4; Nucleated RBC 0 %; Platelet Count 256 10^3/uL (130-400); RBC 4.92 10^6/uL (4.36-5.78); RDW 13.3 % (11.8-14.1); RDW-SD 42.1 fL; WBC 5.56 10^3/uL (4.4-10.8)
--- NOTE | 2020-04-22 18:07 | W.ED.GENAD ---
Discharge Plan Disposition Patient Disposition: [facility] INPATIENT Condition: Serious Discharge Details Clinical Impression: Chest pain Admit Date/Time: 04/22/20 20:32 Admit Provider: Jon Waters Attending Provider: Jon Waters Primary Care Provider: Diallo Booth ED Provider: Tristen Parks Discharge Data Discharge Date/Time-TO BE ENTERED AT DEPARTURE: 04/22/20 21:02 Medical Decision Making 18:20 -- 69-year-old male with history of coronary artery disease status post stent, here with intermittent chest pain over the past few days that resolved with nitroglycerin. Concern for ACS. Patient did have recent apparently clean cath. I will attempt to obtain outside hospital records. Screening ECG was reviewed and interpreted by me: Sinus rhythm 73 bpm, PACs noted, no STEMI, nondiagnostic. No significant changes compared to prior ECG from 03/25/2020. Plan to check troponin. Patient has had recent left leg swelling although he has no calf tenderness consider PE. Plan to obtain CTA of the chest. --I did [place] [facility] [place]2020 that notes patient had cath which revealed previously placed stents patent and a moderate grade ostial or TDL lesion which was IFR negative. He was started on Imdur 30 mg daily to prevent possible microvascular dysfunction and was discharged home. --Labs reviewed and initial troponin is negative. PA of the chest was reviewed and interpreted by radiology: IMPRESSION: 1. No evidence of pulmonary embolism. 2. No alveolar infiltrate. 3. Normal caliber thoracic aorta without dissection or aneurysm. Patient reassessed multiple times and now pain-free on nitroglycerin infusion. Patient is currently on Eliquis and Brilinta. Plan to admit to ICU on nitroglycerin for trending of troponin and cardiac consultation. I called and spoke with Dr. Waters who will admit the patient. Care transitioned to Dr. Waters at time of admission Medical Records Medical records reviewed: Yes I reviewed the patient's medical records. Lab Data Labs: Laboratory Tests Range/Units 04/22/20 04/22/20 17:48 17:48 WBC (4.4-10.8) 10^3/uL 5.56 RBC (4.36-5.78) 10^6/uL 4.92 Hgb (13.5-17.5) g/dL 13.7 Hct (40.0-50.0) % 42.3 MCV (80-95) fL 86.0 MCH (27.0-33.0) pg 27.8 MCHC (32.0-36.0) % 32.4 RDW (11.8-14.1) % 13.3 Plt Count (130-400) 10^3/uL 256 MPV (8.0-11.0) fL 11.1 H Immature Gran % 0.2 Neutrophils % 62.0 Lymphocytes % 23.4 Monocytes % 12.4 Eosinophils % 1.8 Basophils % 0.2 Nucleated RBC % % 0 Absolute Neutrophils (1.2-6.7) 10^3/uL 3.45 Absolute Lymphocytes (1.2-3.4) 10^3/uL 1.30 Absolute Monocytes (0.1-0.8) 10^3/uL 0.69 Absolute Eosinophils (0.0-0.7) 10^3/uL 0.10 Absolute Basophils (0.0-0.2) 10^3/uL 0.01 Sodium (136-145) mmol/L 141 Potassium (3.5-5.1) mmol/L 4.2 Chloride (98-107) mmol/L 106 Carbon Dioxide (21.0-32.0) mmol/L 28.1 Anion Gap (3-11) mmol/L 6.9 BUN (7-18) mg/dL 24 H Creatinine (0.70-1.30) mg/dL 1.43 H Estimated GFR/1.73 m2 (mL/min/1.73m2) 49.33 Glucose (74-106) mg/dL 93 Calcium (8.5-10.1) mg/dL 9.2 Magnesium (1.8-2.4) mg/dL 2.1 Total Bilirubin (0.2-1.0) mg/dL 0.6 AST (15-37) U/L 27 ALT (16-63) U/L 43 Alkaline Phosphatase (46-116) U/L 126 H Troponin I (<0.06) ng/mL < 0.05 Total Protein (6.4-8.2) g/dL 7.3 Albumin (3.4-5.0) g/dL 3.9 HPI General Date/Time Provider Initiated Documentation: 04/22/20 17:52. HPI Narrative: 69 year old male with past medical history of coronary artery disease status post STEMI in 2018 (NASIM to mid LAD and RCA, recath in 11/2017 with stent to proximal LAD), on brillinta, paroxysmal Afib on eliquis, chronic systolic CHF (EF 40-45%), hypertension, hyperlipidemia, here with chief complaint of chest pain. Patient notes he has had intermittent chest pain for the past 3 days. He noticed pain was worse with raking recently. Currently pain is left chest rated 3 out of 10. Patient does note the pain is responsive to nitroglycerin sublingual which he has been taking regularly. Patient also notes some left leg swelling that is been intermittent over the past couple weeks. He denies shortness of breath. Of note, patient was seen here recently for positive stress test, was admitted as a temporary hold and then [place] [facility] [place] cardiac catheter[place] that apparently was unremarkable. Related Data Home Medications Medication Instructions Recorded Confirmed apixaban [Eliquis] 5 mg PO BID 30 Days #60 tab-cap 01/30/18 04/22/20 atorvastatin [Lipitor] 80 mg PO DAILY tab-cap 01/30/18 04/22/20 pantoprazole [Protonix] 40 mg PO DAILY tab-cap 01/30/18 04/22/20 ticagrelor [Brilinta] 90 mg PO BID tab-cap 01/30/18 04/22/20 furosemide [Lasix] 20 mg PO DAILY 05/09/18 04/22/20 amlodipine 2.5 mg PO DAILY 03/25/20 04/22/20 candesartan 4 mg PO DAILY 03/25/20 04/22/20 ezetimibe 10 mg PO DAILY 03/25/20 04/22/20 isosorbide mononitrate 30 mg PO DAILY 03/25/20 04/22/20 metoprolol succinate 25 mg PO DAILY 03/25/20 04/22/20 venlafaxine 37.5 mg PO DAILY 03/25/20 04/22/20 Previous Rx's Medication Instructions Recorded apixaban [Eliquis] 5 mg PO BID 30 Days #60 tab-cap 01/30/18 Allergies Allergy/AdvReac Type Severity Reaction Status Date / Time lisinopril Allergy Severe Anaphylaxsi Verified 04/22/20 17:49 s divalproex sodium Allergy Swelling/Ed Unverified 04/22/20 17:49 [From Depakote] shayy General Stated Complaint: Chest Pain MANOJ: 2 Review of Systems All systems reviewed & are unremarkable except as noted in HPI and below Constitutional Constitutional: Denies fever(s) Gastrointestinal Gastrointestinal: Denies abdominal pain [facility] Medical History (Updated 04/22/20 @ 21:04 by Tristen Praks MD) CAD (coronary artery disease) s/p STEMI in October of 2017, [place] [facility] [place] with NASIM to mid LAD and mid RCA; recatheterization on 11/21/17 with stent to proximal LAD (?restenosis/plavix resistance), on brillinta Hyperlipidemia Hypertension, essential Paroxysmal atrial fibrillation on eliquis Systolic CHF Last known EF 46% in 11/2017 Surgical History Colonoscopy - IV Sedation (02/28/16) H/O cardiac catheterization x2 History of appendectomy Family History Mother CAD (coronary artery disease) Stroke Hypertension Sister Brain cancer Social History Smoking/Tobacco Use Status: Former Tobacco Use Alcohol Intake: former Drug use: Never Substance use type: does not use 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[employer] Do you feel safe at home: Yes Do you feel safe in your relationship?: Yes Exam Const General: cooperative and no acute distress HENMT Mouth: moist mucous membranes Eyes EOM: EOM intact bilaterally Neck Neck: trachea midline, supple and no JVD Resp Effort & Inspection: normal respiratory effort and able to speak in complete sentences Auscultation: rales bilaterally (faint), no rhonchi and no wheezes Cardio Jugular venous pressure: no JVD Rate: regular rate and not tachycardic Rhythm: regular rhythm GI Palpation: soft, not firm, no guarding, no masses, not rigid and nontender Skin General skin exam: no rashes or lesions noted Neuro General: patient alert, patient awake, patient oriented x3 and tone normal Extrem General: no calf tenderness and edema Laterality: left (Trace) Psych Appearance: grossly normal Mental Status: mental status grossly normal Course Vital Signs Vital signs: Vital Signs Temperature 36.6 C 04/22/20 17:42 Pulse 75 04/22/20 17:42 Respiratory Rate 15 04/22/20 17:42 Blood Pressure 142/91 H 04/22/20 17:42 Pulse Oximetry 98 04/22/20 17:42 Temperature 36.6 C 04/22/20 17:42 Temperature Source Skin 04/22/20 17:42 Pulse 75 04/22/20 17:42 Respiratory Rate 15 04/22/20 17:42 Respiratory Effort Short of Breath 04/22/20 18:07 Respiratory Pattern Normal 04/22/20 18:00 Blood Pressure 142/91 H 04/22/20 17:42 Blood Pressure Position Sitting 04/22/20 17:42 Pulse Oximetry 98 04/22/20 17:42 Oxygen Delivery Method Room Air 04/22/20 17:42 Oxygen Flow Rate 0 04/22/20 17:42 Pain Level 3 04/22/20 17:42 Critical Care Time Critical Care Time Critical Care Time: Yes Total Critical Care Time: 40 Attestation: I spent greater than 40 minutes addressing this patient's immediate life threats. Please see MDM section of note. This time was spent engaged in work directly related to the patient's care, exclusive of separate procedures, and failure to initiate these interventions would have likely resulted in clinically significant or life threatening deterioration in the patient's condition.
[2020-04-22 18:27] LABS: ALT 43 U/L (16-63); AST 27 U/L (15-37); Albumin 3.9 g/dL (3.4-5.0); Alkaline Phosphatase 126 U/L (46-116); Anion Gap 6.9 mmol/L (3-11); BUN 24 mg/dL (7-18); Bilirubin, Total 0.6 mg/dL (0.2-1.0); CO2 28.1 mmol/L (21.0-32.0); CREATININE 1.43 mg/dL (0.70-1.30); Calcium 9.2 mg/dL (8.5-10.1); Chloride 106 mmol/L (98-107); Estimated GFR 49.33 (mL/min/1.73m2); Glucose 93 mg/dL (74-106); Potassium 4.2 mmol/L (3.5-5.1); Sodium 141 mmol/L (136-145); Total Protein 7.3 g/dL (6.4-8.2); Troponin I < 0.05 ng/mL (<0.06)
[2020-04-22 18:33] LABS: Magnesium 2.1 mg/dL (1.8-2.4)
[2020-04-22] MEDS: Normal Saline - Diluent 50 ML VIAL IV (19:24)
[2020-04-22] MEDS: Omnipaque 350 MG/ML 100 ML BTL IJ (19:24)
--- NOTE | 2020-04-22 19:26 | DI.CT_ITS ---
EXAM: CT CHEST PE CTA CLINICAL HISTORY: chest pain, left lower leg swelling. TECHNIQUE: Imaging Protocol: Axial CT angiography was performed with multi-slice acquisition and mu lti-planar and/or 3D reconstructions. CONTRAST MATERIAL: Intravenous: Omnipaque 350 Contrast volume:100 ml COMPARISON: CR XR PORTABLE CHEST AP from 03/25/2020 FINDINGS: Pulmonary Arteries: No evidence of filling defect to suggest pulmonary emboli. Tracheobronchial tree: Patent where visualized. Mediastinum and Sybil: No dominant adenopathy or fluid collection. Pulmonary parenchyma: No consolidation or dominant measurable mass. Expiratory changes. Pleura: No effusion or pneumothorax. Heart: The heart is mildly. No coronary artery calcifications are seen. Aorta: Thoracic aorta non-dilated. Minimal calcification. Upper abdomen: Unremarkable. Bones: Prior left shoulder surgery. Minimal degenerative changes in the spine. IMPRESSION: No evidence of pulmonary embolism or other acute abnormality.. RADIATION DOSE DELIVERED: 466.67mGy.cm Total DLP DATA REPOSITORY: All CT scans at this facility are submitted to the National Radiology Data Registry (NRDR) Dose Index Registry (DIR) with the [employer] (ACR). RADIATION OPTIMIZATION: All CT scans at this facility use at least one of these dose optimization te chniques: automated exposure control; mA and/or kV adjustment per patient size (includes targeted exa ms where dose is matched to clinical indication); or iterative reconstruction.
--- NOTE | 2020-04-22 19:32 | NUR.NOTE ---
transferred to CT with pt on monitor, returned to ED
[2020-04-22] MEDS: FAMOTIDINE 20 MG/50 ML BAG 200 MG IVPB (19:41)
[2020-04-22] MEDS: Normal Saline 500 ML IV (19:41)
--- NOTE | 2020-04-22 19:44 | NUR.NOTE ---
18 G in L forearm for nitro and IVF maintainance for CTA. Famotidine infusing in R AC. 3rd attempt, 2 by myself and 3rd by Camila Alonso
--- NOTE | 2020-04-22 19:53 | DI.VRAD_ITS ---
PROCEDURE INFORMATION: Exam: CT Angiography Chest With Contrast Exam date and time: 04/22/2020 7:22 PM Age: 69 years old Clinical indication: Chest pain, Left leg swelling, HX hypertension and heart disease TECHNIQUE: Imaging protocol: Computed tomographic angiography of the chest with intravenous contrast. 3D rendering (Not supervised by radiologist): MIP and/or 3D reconstructed images were created by the technologist. Radiation optimization: All CT scans at this facility use at least one of these dose optimization techniques: automated exposure control; mA and/or kV adjustment per patient size (includes targeted exams where dose is matched to clinical indication); or iterative reconstruction. Contrast material: [id number]; Contrast volume: 100 ml; Contrast route: INTRAVENOUS (IV); COMPARISON: CR XR PORTABLE CHEST AP 03/25/2020 10:24 AM FINDINGS: Pulmonary arteries: No evidence of pulmonary embolism. Aorta: Normal caliber thoracic aorta without dissection or aneurysm. Lungs: No alveolar infiltrate. Pleural space: No pleural fluid collection. No pneumothorax. Heart: Coronary artery calcification. No right ventricular strain. No pericardial effusion. Lymph nodes: Unremarkable. No enlarged lymph nodes. Bones/joints: Prior left shoulder surgery. Soft tissues: Unremarkable. IMPRESSION: 1. No evidence of pulmonary embolism. 2. No alveolar infiltrate. 3. Normal caliber thoracic aorta without dissection or aneurysm. Dictated and Authenticated by: Huang Boogie MD. Ordering:LEDA Ramon MD
[2020-04-22 21:20] LABS: Troponin I < 0.05 ng/mL (<0.06)
[2020-04-22] MEDS: Apixaban 2.5 MG TAB PO (22:27)
[2020-04-22] MEDS: Ticagrelor 90 MG TAB PO (22:27)
--- NOTE | 2020-04-22 23:08 | W.PM.HP.N ---
Date of service: 04/22/20 Time of Service: 22:09 Assessment and Plan Assessment and plan (1) Chest pain: Status: Acute Assessment and plan: Pattern of increasing angina in patient with known coronary artery disease is concerning for unstable angina. Initial EKG and troponins are reassuring, however. He does respond to nitroglycerin and has been on a nitroglycerin drip since the emergency room. We will continue to rule out acute coronary syndrome with serial troponins and monitor in ICU on the nitro drip. He is already anticoagulated, will continue the apixaban and Brilinta. CT chest is reassuring that there is no pulmonary embolus, dissection, infection, or other pathology. (2) CAD (coronary artery disease): Status: Chronic Assessment and plan: As above, concern for unstable angina. I have asked for cardiology consult in the morning to review his medical therapy make suggestions for adjustment. He may benefit from increasing his long-acting nitroglycerin. Continue high intensity statin therapy. (3) Chronic systolic CHF (congestive heart failure): Status: Chronic Assessment and plan: His left ventricular ejection fraction was diminished around 35% on the myocardial perfusion imaging last month. Patient is on appropriate medical management. He is beta-heath on metoprolol. He is taking an angiotensin receptor heath. Aldosterone agonist could be considered. I do not think he is fluid overloaded point, but I will back down the fluid slightly. Continue his home dose of furosemide. (4) CKD (chronic kidney disease): Status: Acute Assessment and plan: Patient's GFR is about his baseline with a creatinine of 1.4. He did just get a contrast CT. Continue to monitor. (5) Paroxysmal atrial fibrillation: Status: Chronic Assessment and plan: Anticoagulated on apixaban, rate control with metoprolol. (6) DVT prophylaxis: Status: Acute Assessment and plan: On full dose anticoagulation as above. (7) Discharge planning issues: Status: Acute Assessment and plan: Patient stable in the ICU because he is on a drip. He is currently chest pain-free and resting comfortably. He is a full code. History of Present Illness History of Present Illness Chief Complaint: chest pain Narrative: 69-year-old man with known coronary artery disease with stenting in 2016, recent admission in March 2020 for chest pain with positive nuclear stress test and cardiac catheterization showing patent stents and no other obstructing coronary artery lesions, who was sent from his primary care offices with increasing chest pain. Patient states his chest pain started to get more regular around 3 weeks ago, not long after his recent discharge from [facility]. The chest pain started to become more frequent, several times a day, over the last 3 days prior to admission. Patient went to his primary care office today for a flu shot, and after telling a covering clinician about his recent symptoms, he was sent to the emergency room for evaluation. Patient describes the pain is sharp in the substernal to left chest, with a burning pain radiating to the left axilla and arm. Pain is moderate. Pain last around 3 minutes, with gradual resolution after taking nitroglycerin. Pain can come on randomly, but did come on with raking at work a day prior to admission. Chest pain is not associated with palpitations or nausea. It is associated with feeling of shortness of breath and at times with lightheadedness and diaphoresis. It is similar to previous cardiac chest pain. He has been taking his medication regularly including his apixaban, metoprolol, and ticagralor. Imdur 30 mg was started after his [facility] admission, this was the only medication change after the catheterization. Review of Systems Constitutional Constitutional: Denies anorexia, Denies chills, Denies fever(s) and Denies weakness Eyes Eyes: Denies change in vision and Denies irritation ENT Ears, Nose, Mouth, and Throat: Denies dizziness, Denies mouth lesions, Denies nasal congestion, Denies nasal discharge and Denies sore throat Cardiovascular Cardiovascular: Reports as per HPI, Denies palpitations and Denies orthopnea Respiratory Respiratory: Denies chest congestion, Denies cough, Denies excessive phlegm production and Denies wheezing Gastrointestinal Gastrointestinal: Denies abdominal pain, Denies heartburn, Denies diarrhea and Denies vomiting Genitourinary Genitourinary: Denies hematuria, Denies dysuria and Denies urinary frequency Musculoskeletal Musculoskeletal: Denies arthralgias and Denies joint swelling Integumentary/Breasts Skin/Breast: Denies rash and Denies skin ulcer Neurologic Neurologic: Denies dizziness, Denies sensory deficit and Denies weakness Psychiatric Psychiatric: Denies mood swings and Denies panic attacks Endocrine Endocrine: Denies palpitations Hematologic/Lymphatic Hematologic/Lymphatic: Denies easy bleeding Allergic/Immunologic Allergic/Immunologic: Denies wheezing [facility] Medical History (Updated 04/22/20 @ 23:26 by Jon Waters) CAD (coronary artery disease) s/p STEMI in October of 2017, cardiac cath at [facility] [place] on 11/19/17 with NASIM to mid LAD and mid RCA; recatheterization on 11/21/17 with stent to proximal LAD (?restenosis/plavix resistance), on brillinta Hyperlipidemia Hypertension, essential Paroxysmal atrial fibrillation on eliquis Systolic CHF Last known EF 46% in 11/2017 Surgical History Colonoscopy - IV Sedation (02/28/16) H/O cardiac catheterization x2 History of appendectomy Family History (Updated 04/22/20 @ 23:19 by Jon Waters) Mother CAD (coronary artery disease) Stroke Hypertension Sister Brain cancer Brother CAD (coronary artery disease) Social History (Updated 04/22/20 @ 23:18 by Jon Waters) Smoking/Tobacco Use Status: Former Tobacco Use Alcohol Intake: former Drug use: Never Substance use type: does not use 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 Lives with his Kena in [place]. Meds Home Medications and Allergies Home Medications Medication Instructions Recorded Confirmed Type apixaban [Eliquis] 5 mg PO BID 30 Days #60 tab-cap 01/30/18 04/22/20 Rx atorvastatin [Lipitor] 80 mg PO DAILY tab-cap 01/30/18 04/22/20 History pantoprazole [Protonix] 40 mg PO DAILY tab-cap 01/30/18 04/22/20 History ticagrelor [Brilinta] 90 mg PO BID tab-cap 01/30/18 04/22/20 History furosemide [Lasix] 20 mg PO DAILY 05/09/18 04/22/20 History amlodipine 2.5 mg PO DAILY 03/25/20 04/22/20 History candesartan 4 mg PO DAILY 03/25/20 04/22/20 History ezetimibe 10 mg PO DAILY 03/25/20 04/22/20 History isosorbide mononitrate 30 mg PO DAILY 03/25/20 04/22/20 History metoprolol succinate 25 mg PO DAILY 03/25/20 04/22/20 History venlafaxine 37.5 mg PO DAILY 03/25/20 04/22/20 History Allergies Allergy/AdvReac Type Severity Reaction Status Date / Time lisinopril Allergy Severe Anaphylaxsi Verified 04/22/20 17:49 s divalproex sodium Allergy Swelling/Ed Unverified 04/22/20 17:49 [From Depakote] shayy Exam Narrative Exam Narrative: GEN: Alert and oriented, pleasent and cooperative, gives linear history. No acute distress at rest. HEENT: Head atraumatic. Conjunctiva clear, no icterus. PEERL, EOMI. no rhinorrhea. MMM, OP benign. Neck is supple with no masses or lymphadenopathy, trachea midline LUNGS: CTAB with normal effort CV: RRR with no murmurs, gallops, or rubs. ABD: +BS, soft, NT/ND EXT: no cyanosis, clubbing, or edema. Legs nontender to palpation, calf circumference roughly equal bilateral. MSK: No joint redness or swelling. Chest wall nontender palpation NEURO: CN 2-12 grossly intact. Normal movement of 4 extremities. Normal speech and coordination SKIN: No rashs or open wounds. PSYCH: normal mood and affect Results CT Chest: 1. No evidence of pulmonary embolism. 2. No alveolar infiltrate. 3. Normal caliber thoracic aorta without dissection or aneurysm. Labs Result diagrams: 04/22/20 17:48 04/22/20 17:48 Labs: Laboratory Results - last 24 hr 04/22/20 04/22/20 04/22/20 17:48 17:48 20:55 WBC 5.56 RBC 4.92 Hgb 13.7 Hct 42.3 MCV 86.0 MCH 27.8 MCHC 32.4 RDW 13.3 Plt Count 256 MPV 11.1 H Immature Gran % 0.2 Neutrophils % 62.0 Lymphocytes % 23.4 Monocytes % 12.4 Eosinophils % 1.8 Basophils % 0.2 Nucleated RBC % 0 Absolute Neutrophils 3.45 Absolute Lymphocytes 1.30 Absolute Monocytes 0.69 Absolute Eosinophils 0.10 Absolute Basophils 0.01 Sodium 141 Potassium 4.2 Chloride 106 Carbon Dioxide 28.1 Anion Gap 6.9 BUN 24 H Creatinine 1.43 H Estimated GFR/1.73 m2 49.33 Glucose 93 Calcium 9.2 Magnesium 2.1 Total Bilirubin 0.6 AST 27 ALT 43 Alkaline Phosphatase 126 H Troponin I < 0.05 < 0.05 Total Protein 7.3 Albumin 3.9 Last Vital Signs Temp 36.3 C L 04/22/20 21:40 Pulse 67 04/22/20 20:45 Resp 20 04/22/20 20:45 BP 104/53 L 04/22/20 20:45 Pulse Ox 98 04/22/20 21:40 COVID-19 Screening Have you,or household,traveled outside [place] in last 14 days?: Yes Had IN PERSON contact w/suspected or confirmed C-19 person: No
[2020-04-23] VITALS (30 sets, daily range): BP systolic 96–146; BP diastolic 50–91; PULSE 58–102; RESP 13–24; TEMP 36.2–36.3; O2SAT 93–100
[2020-04-23] MEDS: Normal Saline 1,000 ML 75 ML IV (02:00)
[2020-04-23 06:59] LABS: Anion Gap 7.2 mmol/L (3-11); BUN 18 mg/dL (7-18); CO2 24.8 mmol/L (21.0-32.0); CREATININE 1.28 mg/dL (0.70-1.30); Calcium 8.5 mg/dL (8.5-10.1); Chloride 109 mmol/L (98-107); Estimated GFR 56.06 (mL/min/1.73m2); Glucose 96 mg/dL (74-106); Potassium 4.1 mmol/L (3.5-5.1); Sodium 141 mmol/L (136-145)
--- NOTE | 2020-04-23 07:45 | RT.EKG_ITS ---
APPROVED REPORT Exam: Resting ECG Patient Location: I HR:61 bpm ECG Measurements Heart Rate 61 AXIS MI 174 P 29 QRSd 80 QRS -32 QT 410 T 22 QTc 413 Conclusion Sinus rhythm...normal P axis, V-rate 60- 99 Inferior infarct, old...Q >35mS, II III aVF
--- NOTE | 2020-04-23 08:20 | W.PM.PROGNOT ---
Date of Service Date of service: 04/23/20 Time of Service: 10:27 Assessment and Plan Assessment and plan (1) Chest pain: Status: Resolved Assessment and plan: No ME on this admission, but unstable angina likely. Discussed with cardiology - increase imdur and beta blockers. Will titrate the nitroglycerin drip off and monitor sx. Would keep in ICU overnight while nitroglycerin is being titrated. (2) CAD (coronary artery disease): Status: Chronic Assessment and plan: CAD s/p stents 3 years ago and a cath at [facility] 1 month ago after a positive stress test, which resulted in no new stents, but initiation of imdur. As above - continue brillinta, increase beta heath, continue statin + zetia. Continue candestartan. Also, on eliquis. (3) Left leg swelling: Status: Acute Assessment and plan: Would be unusual on a patient on anticoagulation to develop DVT, but DOAC failures do occur. Obtain Venous doppler of BLEs. (4) Chronic systolic CHF (congestive heart failure): Status: Chronic Assessment and plan: Euvolemic now. IVF d/c'ed. Continue home dose of lasix as well as medical therapy as above. (5) CKD (chronic kidney disease): Status: Acute Assessment and plan: Cr at baseline - recheck in am (6) Paroxysmal atrial fibrillation: Status: Chronic Assessment and plan: Rate controlled; continue eliquis. (7) DVT prophylaxis: Status: Acute Assessment and plan: On therapeutic eliquis (8) Discharge planning issues: Status: Acute Assessment and plan: Full code. Keep in ICU. Total Critical Care Time 35 minutes. Subjective Subjective Interval history since last seen: Mr Romano denies dizziness, headache at the time of my evaluation, dizziness, chest pain, or shortness of breath at rest. He does have a quesiton for me: why is it that his left leg was more swollen than the right yesterday? He states that he had an injury to the ankle in high school and that a branch fell on him leaving a scar just below the knee a long time ago, but he has not seen the left leg more swollen like that before. He is on eliquis. Comfortable - nitro gtt is being titrated down. Has a headache. SR 60-90s. Had bigeminal PACs while sleeping. SBP 90-100s overnight. 146/75 this am. 87-88% on RA while asleep - 2l. On RA now, 95%. Fluids d/'nona. Exam Narrative Exam Narrative: General: Very pleasant middle-aged male, who is in great spirits, A&Ox3 HEENT: EOMI, MMM Heart: RRR, no m/r/g Lungs: CTAB Abdomen: soft, nontender, nondistended Extremities: trace edema LLE which does look only a little bit bigger in diameter than the R; there is an old well-healed scar laterally under the left knee. Objective Last Vital Signs Temp 36.2 C L 04/23/20 06:00 Pulse 66 04/22/20 23:31 Resp 17 04/22/20 23:31 BP 91/53 L 04/22/20 23:31 Pulse Ox 96 04/23/20 06:00 Laboratory Results - last 24 hr 04/22/20 04/22/20 04/22/20 17:48 17:48 20:55 WBC 5.56 RBC 4.92 Hgb 13.7 Hct 42.3 MCV 86.0 MCH 27.8 MCHC 32.4 RDW 13.3 Plt Count 256 MPV 11.1 H Immature Gran % 0.2 Neutrophils % 62.0 Lymphocytes % 23.4 Monocytes % 12.4 Eosinophils % 1.8 Basophils % 0.2 Nucleated RBC % 0 Absolute Neutrophils 3.45 Absolute Lymphocytes 1.30 Absolute Monocytes 0.69 Absolute Eosinophils 0.10 Absolute Basophils 0.01 Sodium 141 Potassium 4.2 Chloride 106 Carbon Dioxide 28.1 Anion Gap 6.9 BUN 24 H Creatinine 1.43 H Estimated GFR/1.73 m2 49.33 Glucose 93 Calcium 9.2 Magnesium 2.1 Total Bilirubin 0.6 AST 27 ALT 43 Alkaline Phosphatase 126 H Troponin I < 0.05 < 0.05 Total Protein 7.3 Albumin 3.9 04/23/20 06:15 WBC RBC Hgb Hct MCV MCH MCHC RDW Plt Count MPV Immature Gran % Neutrophils % Lymphocytes % Monocytes % Eosinophils % Basophils % Nucleated RBC % Absolute Neutrophils Absolute Lymphocytes Absolute Monocytes Absolute Eosinophils Absolute Basophils Sodium 141 Potassium 4.1 Chloride 109 H Carbon Dioxide 24.8 Anion Gap 7.2 BUN 18 D Creatinine 1.28 Estimated GFR/1.73 m2 56.06 Glucose 96 Calcium 8.5 Magnesium Total Bilirubin AST ALT Alkaline Phosphatase Troponin I Total Protein Albumin
[2020-04-23 09:03] LABS: Calculated LDL 42 mg/dL (<100); Cholesterol 91 mg/dL (<200); HDL Cholesterol 30 mg/dL (40-60); Triglyceride 99 mg/dL (<150)
[2020-04-23 09:04] LABS: Troponin I < 0.05 ng/mL (<0.06)
[2020-04-23] MEDS: Ticagrelor 90 MG TAB PO ×2 (09:29→19:57)
[2020-04-23] MEDS: Atorvastatin 40 MG TAB 80 MG PO (09:29)
[2020-04-23] MEDS: amLODIPine 2.5 MG TAB PO (09:29)
[2020-04-23] MEDS: Ezetimibe 10 MG TAB PO (09:29)
[2020-04-23] MEDS: Isosorbide Mononitrate 30 MG TABCR PO (09:29)
[2020-04-23] MEDS: Metoprolol CR 25 MG TABCR PO (09:29)
[2020-04-23] MEDS: Apixaban 2.5 MG TAB 5 MG PO (09:30)
[2020-04-23] MEDS: Venlafaxine 37.5 MG CAPCR PO (09:30)
[2020-04-23] MEDS: Pantoprazole 20 MG TABCR 40 MG PO (09:30)
[2020-04-23] MEDS: Furosemide 40 MG TAB 20 MG PO (09:30)
--- NOTE | 2020-04-23 09:31 | CCONE_ITS ---
Date of service: 04/23/20 Time of Service: 09:31 Assessment and Plan Assessment and plan (1) Chest pain: Status: Acute (2) Chronic systolic CHF (congestive heart failure): Status: Chronic Assessment and plan: 1. Chest pain: The patient has known coronary disease and a catheterization 1 month ago that showed nonobstructive disease. He also has a stress test which does not show any significant ischemia within the last month. During his catheterization they performed an IFR to the most significant lesion which was negative. He is on good medications but low doses which can certainly be increased. ?Transition off of nitro drip with higher dose of long-acting nitrate. ?Amlodipine and metoprolol can both be increased for symptoms ?If long-acting nitrate as well as beta-heath and calcium channel heath have all been increased to the maximum tolerated dose that he still has symptoms, would consider ranolazine ?Continue Brilinta and atorvastatin ?Do not recommend any further ischemic evaluation at this point. 2. Ischemic cardiomyopathy with a recent ejection fraction 40-45%. He is on guideline-directed medical therapy but again the doses could potentially be increased. ?Would encourage increasing metoprolol succinate first ?Continue ARB at current dose in order to have room to maximize anti-anginals ?Would consider initiation of mineralocorticoid antagonist. His ejection fraction is high enough that he would not likely qualify for Entresto at this point. History of Present Illness History of Present Illness Chief Complaint: chest pain Narrative: Mr Romano is a 69-year-old male with past medical history significant for coronary artery disease status post drug-eluting stent to the RCA and the LAD in 2018 (in-stent thrombosis 1 day later and a stent placed to the proximal LAD), ischemic cardiomyopathy (EF 40-45%) and paroxysmal atrial fibrillation who presents now with chest pain. He was admitted to [facility] in early March of this year for similar concern. He initially had a stress test at [facility] which did not show any areas of ischemia. At that time troponins were negative but cardiac catheterization was undergone which showed patent previously placed stents and a moderate. R PDL lesion which was IFR negative. He was initiated on Imdur for possible microvascular disease and sent home. He now presents again with a similar story of exertional chest pain. His troponins again were negative and his EKG is reassuring. Review of Systems All systems reviewed & are unremarkable except as noted in HPI and below PFSH Medical History CAD (coronary artery disease) s/p STEMI in October of 2017, cardiac cath at [facility] on 11/19/17 with NASIM to mid LAD and mid RCA; recatheterization on 11/21/17 with stent to proximal LAD (?restenosis/plavix resistance), on brillinta Hyperlipidemia Hypertension, essential Paroxysmal atrial fibrillation on eliquis Systolic CHF Last known EF 46% in 11/2017 Surgical History Colonoscopy - IV Sedation (02/28/16) H/O cardiac catheterization x2 History of appendectomy Family History Mother CAD (coronary artery disease) Stroke Hypertension Sister Brain cancer Brother CAD (coronary artery disease) Social History Smoking/Tobacco Use Status: Former Tobacco Use Alcohol Intake: former Drug use: Never Substance use type: does not use 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 Lives with his Kena in [place]. Exam Const General: comfortable and no acute distress HENMT Head: normocephalic and atraumatic Eyes General: appearance normal, both eyes and all related structures Resp Effort & Inspection: normal respiratory effort Auscultation: clear to auscultation bilaterally Cardio Jugular venous pressure: no JVD Palpation: normal PMI Rate: regular rate Rhythm: regular rhythm Heart Sounds: S1 normal and S2 normal (No Murmurs, Rubs or Gallops) GI Palpation: soft Auscultation: normoactive bowel sounds Skin General skin exam: no rashes or lesions noted Extrem General: normal to inspection and no clubbing, cyanosis or edema Psych Appearance: grossly normal Results Last Vital Signs Temp 36.2 C L 04/23/20 06:00 Pulse 66 04/22/20 23:31 Resp 17 04/22/20 23:31 BP 91/53 L 04/22/20 23:31 Pulse Ox 96 04/23/20 06:00 Labs Result diagrams: 04/22/20 17:48 04/23/20 06:15 Labs: Laboratory Results - last 24 hr 04/22/20 04/22/20 04/22/20 17:48 17:48 20:55 WBC 5.56 RBC 4.92 Hgb 13.7 Hct 42.3 MCV 86.0 MCH 27.8 MCHC 32.4 RDW 13.3 Plt Count 256 MPV 11.1 H Immature Gran % 0.2 Neutrophils % 62.0 Lymphocytes % 23.4 Monocytes % 12.4 Eosinophils % 1.8 Basophils % 0.2 Nucleated RBC % 0 Absolute Neutrophils 3.45 Absolute Lymphocytes 1.30 Absolute Monocytes 0.69 Absolute Eosinophils 0.10 Absolute Basophils 0.01 Sodium 141 Potassium 4.2 Chloride 106 Carbon Dioxide 28.1 Anion Gap 6.9 BUN 24 H Creatinine 1.43 H Estimated GFR/1.73 m2 49.33 Glucose 93 Calcium 9.2 Magnesium 2.1 Total Bilirubin 0.6 AST 27 ALT 43 Alkaline Phosphatase 126 H Troponin I < 0.05 < 0.05 Total Protein 7.3 Albumin 3.9 Triglycerides Total Cholesterol LDL Cholesterol, Calc HDL Cholesterol 04/23/20 06:15 WBC RBC Hgb Hct MCV MCH MCHC RDW Plt Count MPV Immature Gran % Neutrophils % Lymphocytes % Monocytes % Eosinophils % Basophils % Nucleated RBC % Absolute Neutrophils Absolute Lymphocytes Absolute Monocytes Absolute Eosinophils Absolute Basophils Sodium 141 Potassium 4.1 Chloride 109 H Carbon Dioxide 24.8 Anion Gap 7.2 BUN 18 D Creatinine 1.28 Estimated GFR/1.73 m2 56.06 Glucose 96 Calcium 8.5 Magnesium Total Bilirubin AST ALT Alkaline Phosphatase Troponin I < 0.05 Total Protein Albumin Triglycerides 99 Total Cholesterol 91 LDL Cholesterol, Calc 42 HDL Cholesterol 30 L
[2020-04-23] MEDS: Metoprolol CR 25 MG TABCR 12.5 MG PO (10:11)
[2020-04-23] MEDS: Isosorbide Mononitrate 30 MG TABCR 15 MG PO (10:11)
--- NOTE | 2020-04-23 11:01 | PDOC.CMIN ---
- If Service Date Differs Date of service: 04/23/20 Time of Service: 11:01 Care Management Initial Assess REASON FOR HOSPITALIZATION:: Chest Pain PAST MEDICAL HISTORY/PAST SURGICAL HISTORY:: Medical History (Updated 04/22/20 @ 23:26 by Jon Waters). CAD (coronary artery disease). s/p STEMI in October of 2017, cardiac cath at [facility] [place]17 with NASIM to mid LAD and mid RCA; recatheterization on 11/21/17 with stent to proximal LAD (?restenosis/plavix resistance), on brillinta. Hyperlipidemia. Hypertension, essential. Paroxysmal atrial fibrillation. on eliquis. Systolic CHF. Last known EF 46% in 11/2017. Surgical History . Colonoscopy - IV Sedation (02/28/16). H/O cardiac catheterization. x2. History of appendectomy PREVIOUS FUNCTIONAL STATUS/SOCIAL/FAMILY SUPPORTS:: Uziel lives in a single family home in [place] with his Kena. They have 2 daughters and 6 grandchildren, all in the area. Uziel and Kena describe the family as close and supportive. 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 he is independent and active. They receive no community services. CURRENT FUNCTIONAL STATUS:: Uziel and Kena were chattting in Uziel's room when Cm came to see them. They were pleasant and readily responded to questions, sharing details about their family and their lives. ADVANCE DIRECTIVES:: They have them, but not on file Has patient been provided with info about the portal/API?: Yes Did the patient sign up for the portal?: No CODE STATUS:: Full Code INSURANCE COVERAGE / FINANCIAL ISSUES:: [employer] U IDs only. Medicare CURRENT HOME/COMMUNITY SERVICES/EQUIPMENT:: none PRIMARY CARE PHYSICIAN:: Diallo Booth POTENTIAL DISCHARGE NEEDS:: Follow up with PCP and discharge plan of care PATIENT/FAMILY EDUCATION NEEDS:: Discharge plan, limitations, follow up plan, Ask Me Three TRANSPORTATION:: via private vehicle with PLAN:: Uziel will be discharged home with no new services. He will folllow up with his community providers and transport with his . CM will continue to support patient, family and discharge planning concerns.
--- NOTE | 2020-04-23 11:54 | PHA.REVIEW ---
Pharmacy Admission Review - Admission Clinical Review (Last Reviewed 04/23/20 @ 09:37 by Doc Bagley MD) CHEST PAIN Left leg swelling (Acute) Discharge planning issues (Acute) DVT prophylaxis (Acute) CKD (chronic kidney disease) (Acute) lisinopril Allergy (Severe, Verified 04/22/20 17:49) Anaphylaxsis divalproex sodium [From Depakote] Allergy (Unverified 04/22/20 17:49) Swelling/Edema Height 6 ft Weight 107.8 kg - Renal Dosing Renal Dosing: BUN 18 mg/dL (7-18) D 04/23/20 06:15 Creatinine 1.28 mg/dL (0.70-1.30) 04/23/20 06:15 Medications needing adjustments: Reviewed (CrCl ~71.1ml/min based on ABW) List of meds needing interventions: meds ok - Anticoagulation Anticoagulation: Hgb 13.7 g/dL (13.5-17.5) 04/22/20 17:48 Hct 42.3 % (40.0-50.0) 04/22/20 17:48 Plt Count 256 10^3/uL (130-400) 04/22/20 17:48 Creatinine 1.28 mg/dL (0.70-1.30) 04/23/20 06:15 Therapeutic Anticoagulation: Reviewed Medications: Apixaban - Opiate Usage Evaluate Pain Scale/Pains Meds: N/A - Relevant Labs Sodium 141 mmol/L (136-145) 04/23/20 06:15 Potassium 4.1 mmol/L (3.5-5.1) 04/23/20 06:15 Chloride 109 mmol/L (98-107) H 04/23/20 06:15 Magnesium 2.1 mg/dL (1.8-2.4) 04/22/20 17:48 Electrolytes, C-Reactive P, ESR: Reviewed - DM Control DM Control: Glucose 96 mg/dL (74-106) 04/23/20 06:15 Insulin Dosing: N/A - Heart Failure/FL Heart Failure/FL: Troponin I < 0.05 ng/mL (<0.06) 04/23/20 06:15 EF%, SHERRON's, B-Blockers, Diuretics: Reviewed (amlodipine, metoprolol, furosemide) - BP Control BP Control: Blood Pressure 123/73 Blood Pressure 123/73 Blood Pressure 117/67 Blood Pressure 123/70 Blood Pressure 110/50 Blood Pressure 124/91 Blood Pressure 129/75 Blood Pressure 146/75 If elevated: Reviewed List meds needing interventions: Candesartan ordered as pt's own/non-form -- unsure if patient can provide from home - Qtc Review List meds needing interventions: QTc 402 on admission - IV to PO Switch IV Medications: Reviewed - Home Meds Home Med List reviewed: Reviewed Relevent Home Meds Not ordered & why?: Candesartan is ordered but units hasn't confirmed if family/friend can bring in from home, all other home meds are ordered - Current meds Current Medication Order Review: Reviewed (dose increases on metoprolol and isosorbide today) - Comments Comments/Follow Ups: Nitro gtt to be titrated off today/tonight
--- NOTE | 2020-04-23 12:39 | DI.US_ITS ---
EXAM: US EXTREMITY VENOUS BI CLINICAL HISTORY: LLE swelling yesterday, ?DVT. TECHNIQUE: Lower extremity venous ultrasound performed using grayscale, color-flow, and spectral Dop pler analysis. COMPARISON: No exams were available for comparison FINDINGS: Right lower extremity: The common femoral, femoral and popliteal veins demonstrate normal compressibi lity, augmentation, and color Doppler. The posterior tibial veins are patent. The saphenous vein appe ars free of thrombus. No Hamilton's cyst or hematoma is seen. Left lower extremity: The common femoral and femoral veins demonstrate normal compressibility, augmen tation, and color Doppler. There is nonocclusive thrombus visualized in the left popliteal vein. Th e posterior tibial veins are patent. The saphenous vein appears free of thrombus. No Hamilton's cyst or hematoma is seen. IMPRESSION: Right lower extremity: No evidence of DVT. Left lower extremity: Nonocclusive thrombus in the left p opliteal vein. DATA REPOSITORY:
[2020-04-23 13:19] LABS: COVID-19 RT-PCR UVMMC Result Negative (Negative)
[2020-04-23 15:41] LABS: PTT Activated 25.1 sec (21.0-31.4); Prothrombin Time 10.4 sec (9.3-11.0)
[2020-04-23] MEDS: Enoxaparin 120 MG/0.8 ML SYR SC (16:39)
[2020-04-23] MEDS: Warfarin 5 MG TAB PO (19:57)
[2020-04-24] VITALS (14 sets, daily range): BP systolic 105–133; BP diastolic 62–82; PULSE 56–72; RESP 15–23; TEMP 36.1–36.2; O2SAT 83–98
[2020-04-24] MEDS: Enoxaparin 120 MG/0.8 ML SYR SC (03:41)
[2020-04-24 07:30] LABS: Prothrombin Time 10.4 sec (9.3-11.0)
[2020-04-24 07:32] LABS: BUN 15 mg/dL (7-18); CREATININE 1.15 mg/dL (0.70-1.30); Chloride 107 mmol/L (98-107); Glucose 95 mg/dL (74-106); Magnesium 2.2 mg/dL (1.8-2.4); Potassium 4.1 mmol/L (3.5-5.1); Sodium 140 mmol/L (136-145)
[2020-04-24] MEDS: Ezetimibe 10 MG TAB PO (08:07)
[2020-04-24] MEDS: Atorvastatin 40 MG TAB 80 MG PO (08:08)
[2020-04-24] MEDS: amLODIPine 2.5 MG TAB PO (08:08)
[2020-04-24] MEDS: Ticagrelor 90 MG TAB PO (08:08)
[2020-04-24] MEDS: Isosorbide Mononitrate 30 MG TABCR 45 MG PO (08:08)
[2020-04-24] MEDS: Venlafaxine 37.5 MG CAPCR PO (08:08)
[2020-04-24] MEDS: Pantoprazole 20 MG TABCR 40 MG PO (08:08)
[2020-04-24] MEDS: Metoprolol CR 25 MG TABCR 37.5 MG PO (08:09)
[2020-04-24] MEDS: Furosemide 20 MG TAB PO (08:09)
--- NOTE | 2020-04-24 10:36 | PDOC.CMPRO ---
- If Service Date Differs Date of service: 04/24/20 Time of Service: 10:36 Care Management Progress Note S/O: No change in plan. [facility] hematology consulted yesterday and they recommended switching Eliquis to Warfarin with Lovenox coverage until a therapeutic INR level is achieved. Imdur is also increased to 60 mg daily and Toprol-XL to 37.5 mg daily. Uziel's chest pain has resolved and he is asking to go home. CM will continue to follow. A: Uziel is a 69 year old male admitted to [facility] on 04/22/20 for chest pain. P: Plan remains for Uziel to be discharged home with no new services. He will follow up with his community providers and transport with his . CM will continue to support patient, family and discharge planning concerns.
--- NOTE | 2020-04-24 13:17 | DSE_ITS ---
Date of service: 04/24/20 Time of Service: 13:17 DS: Diagnosis Discharge Diagnosis (1) Chest pain: Status: Resolved Asessment and Plan: Unclear as to whether this was anginal pain or not. Nevertheless his chest pain resolved with nitroglycerin. Imdur dose has been increased to 60 mg daily. Toprol-XL has been increased to 37.5 mg daily. Patient will continue his Brilinta. Because he developed a DVT while on Eliquis his Eliquis is been changed to warfarin with Lovenox coverage pending achievement of therapeutic INR levels. Patient's instructed follow-up with his medical donation professional which is scheduled for April 28, 2020. Further consideration could be given for up titration of his amlodipine if his blood pressure tolerates. I will leave it to his medical donation professional to decide whether to follow-up with a repeat stress MPI since he just had a stress test and subsequent cardiac catheterization within the past month. (2) CAD (coronary artery disease): Status: Chronic Asessment and Plan: As above (3) DVT, popliteal, acute: Status: Acute Asessment and Plan: Acute left popliteal DVT. Was apparently is a failure of his apixaban. Patient has been started on warfarin with enoxaparin therapy to bridge him over until his INR is therapeutic. (4) Left leg swelling: Status: Acute Asessment and Plan: Positive venous duplex scan for left popliteal DVT but a negative CTA of his chest. (5) Chronic systolic CHF (congestive heart failure): Status: Chronic Asessment and Plan: Not in any acute congestive failure. Continue current therapy which includes beta-blockers anticoagulants antiplatelet medications lipid-lowering drugs and daily furosemide. As well as angiotensin receptor heath (6) CKD (chronic kidney disease): Status: Chronic Asessment and Plan: Stable BUN and creatinine which actually has improved over time. At the time of discharge BUN was 15 creatinine 1.15 with an estimated GFR of greater than 60 mL/min per 1.73 m? (7) Paroxysmal atrial fibrillation: Status: Chronic Asessment and Plan: Rhythm remained in sinus to sinus bradycardia throughout his hospital stay. Anticoagulation will now be achieved with warfarin with use of enoxaparin to bridge him over until his INR reaches 2.0-2.5 Discharge Plan Disposition Condition: Improving Discharge Details Reason For Visit: CHEST PAIN Admit Date/Time: 04/22/20 20:32 Admit Provider: Jon Waters Attending Provider: Jon Waters Primary Care Provider: Diallo Booth Hospital Course Hospital Course: 69-year-old male with history of known coronary artery disease with previous coronary stenting in 2017 recently found to have positive nuclear stress test and subsequently underwent cardiac catheterization in the last month that showed patent stents with no other obstructing coronary lesions present to the emergency department with exertional chest pain. He was seen in his PCP office for flu shot on the day of admission was sent to the emergency department for evaluation. Patient subsequently ruled out for an acute myocardial infarct ion with serial troponin levels being all less than 0.05. Serial ECGs were performed and demonstrated sinus bradycardia to sinus rhythm with no acute ST or T wave changes. Patient has an old inferior infarct with a QS pattern in the inferior limb leads. CT of the chest was performed and showed no evidence of pulmonary embolism. He has mild cardiomegaly and no thoracic aortic aneurysm. Patient gave a history of they have been using his nitroglycerin more frequently since his cardiac catheterization a month ago at [facility]. Patient had recently been put on Imdur after his cardiac catheterization showed no new obstructive lesions. In the emergency department patient was placed on a nitroglycerin drip and was admitted to the intensive care unit where he was ruled out for an acute myocardial infarction. Nitroglycerin drip was discontinued yesterday and he is remained pain-free ever since admission. Dr. Smith increase his Toprol-XL from 25 mg daily to 37.5 mg daily and increased his Imdur from 30 mg daily to 45 mg daily. Because of complaints of recent left calf swelling venous duplex scan was performed yesterday and demonstrated a left popliteal DVT. Dr. Smith spoke with hematology at [facility] who recommended discontinuing his Eliquis which he had been taken for paroxysmal atrial fibrillation and putting him on Lovenox and transition over to warfarin. Patient is feeling much better today denies any exertional chest pain or pressure and would like to return home. He and his have been undergoing teaching regarding giving himself Lovenox shots. They feel comfortable performing the enoxaparin shots at home. Patient will start on warfarin 10 mg nightly tonight and 10 mg tomorrow night with a pro time to be checked on Mathew morning. He was started on warfarin yesterday at 5 mg nightly however his INR at the time of discharge remained 1.0. He was dosed with Lovenox 120 mg subcutaneously every 12 hours mary Smith however his weight is only 104 kg. I will discharge him on Lovenox 100 mg subcutaneously every 12 hours in addition to the warfarin. He will discontinue his apixaban. He is advised to follow-up with his medical donation professional in the next 1 to 2 weeks. His indicated he has a follow-up on April 28 with his medical donation professional. He should get a pro time checked on Sunday with his PCP directing further dosage of his warfarin. Home Meds and New Rx's Prescriptions: New enoxaparin 100 mg/mL syringe 100 mg subcut Q12H Qty: 10 RF: 1 warfarin 5 mg tablet See Rx Instructions .ROUTE .COMPLEX Qty: 30 RF: 1 isosorbide mononitrate 60 mg tablet extended release 24 hr 60 mg PO DAILY Qty: 30 RF: 1 Continued atorvastatin [Lipitor] 40 MG tablet 80 mg PO DAILY RF: 0 pantoprazole [Protonix] 20 MG tablet,delayed release (DR/EC) 40 mg PO DAILY RF: 0 Brilinta 90 MG tablet 90 mg PO BID RF: 0 furosemide [Lasix] 40 mg Tablet 20 mg PO DAILY RF: 0 candesartan 4 mg Tablet 4 mg PO DAILY RF: 0 amlodipine 2.5 mg tablet 2.5 mg PO DAILY RF: 0 ezetimibe 10 mg tablet 10 mg PO DAILY RF: 0 venlafaxine 37.5 mg capsule,extended release 24hr 37.5 mg PO DAILY RF: 0 Changed metoprolol succinate 25 mg tablet extended release 24 hr 37.5 mg PO DAILY Qty: 0 RF: 0 Discontinued Eliquis 2.5 MG tablet 5 mg PO BID 30 Days Qty: 60 RF: 11 isosorbide mononitrate 30 mg tablet extended release 24 hr 30 mg PO DAILY RF: 0 Discharge Instructions Instructions: Warfarin (By mouth), Enoxaparin (Injection), Deep Vein Thrombosis (DC), Vitamin K in Foods (DC) Additional Instructions: Get a repeat lab work including a prothrombin time/INR on Sunday. Expect results to be called to Sunday by your PCPs office with further instructions on dosing your warfarin. If you do not hear from your PCP office by Sunday proceed with taking only one 5 mg warfarin tablet Sunday and call your PCP office Sunday. Please follow a diet that is low in vitamin K as vitamin K will tend to decrease the effectiveness of your warfarin. Referrals: HEMATOLOGY/ONC,[facility] [OTHER] - (L popliteal DVT while on eliquis for Afib; transitioned to lovenox with bridge to coumadin.) Westley Feliciano [ NON-[facility] STAFF PHYSICIAN] - Diallo Booth MD [Primary Care Provider] - (Call the office on SundayApril 26 for follow-up appointment in the next week.) Ramon Welch [ NON-[facility] STAFF PHYSICIAN] - (Keep your scheduled appointment for April 28, 2020 at 1:40 PM) Activity:: Activity as Tolerated Activity:: Activity as Tolerated Equipment/Supplies:: No Equipment Needed Diet:: Low vitamin K Discharge Orders Other Ambulatory Orders: Prothrombin Time (Routine) Timeframe: 2 Days Facility: [facility] - Location: Laboratory Outpatient Ordered By: Garrett Lynn Discharge Data Discharge Physician: Garrett Lynn DS: Summary Status at Discharge Functional status at discharge: independent ambulation Overall status at discharge: patient is back to baseline Mental Status: mental status grossly normal Speech and Movement: speech and movement normal Mood: congruent mood Affect: normal affect Time Spent with Patient providing and/or coordinating discharge services: Greater than 30 minutes Specific discharge activities: New prescriptions, going over diagnostic tests with the patient and his And arranging outpatient follow-up lab tests. Exam Narrative Exam Narrative: Late middle-aged male who is obese and oriented person place time circumstance. HEENT is unremarkable. Lungs are clear to auscultation. Heart regular rate and rhythm no murmur rub or gallop. Abdomen is obese soft and nontender. Left calf with some mild swelling no tenderness there is firmness to the calf. Psych Mental Status: mental status grossly normal Speech and Movement: speech and movement normal Mood: congruent mood Affect: normal affect DS: Data Vitals/I&O Vitals and I&O: Vital Signs Temperature 36.1 C L 04/24/20 08:16 Temperature Source Temporal Artery Scan 04/24/20 08:16 Pulse 65 04/24/20 10:08 Pulse 61 04/24/20 10:08 Respiratory Rate 16 04/24/20 10:08 Respiratory Effort Non-Labored 04/24/20 08:16 Respiratory Depth Normal 04/24/20 08:16 Respiratory Pattern Normal 04/24/20 08:16 Blood Pressure 110/62 04/24/20 10:08 Blood Pressure Mean 74 04/24/20 10:08 Blood Pressure Position Supine 04/24/20 08:16 Pulse Oximetry 96 04/24/20 08:16 Oxygen Delivery Method Room Air 04/24/20 08:16 Oxygen Flow Rate 0 04/24/20 08:16 Pain Level 0 04/24/20 08:16 Intake & Output 04/23/20 04/24/20 04/24/20 23:59 11:59 23:59 Intake Total 624.50 / 1737.35 240 / 480 240 / 480 Output Total 2175 / 2725 825 / 1150 325 / 1150 Balance -1550.50 / -987.65 -585 / -670 -85 / -670 Weight 104.3 kg Intake: IV 24.50 / 837.35 Oral 600 / 900 240 / 480 240 / 480 Output: Urine 2175 / 2725 825 / 1150 325 / 1150 Other: Urine Color Yellow Yellow Yellow Urine Appearance Clear Clear Clear Urine Odor Normal Normal Comment clear yellow urine. uses urinal independently. Patient voids in urinal independently PRN. Patient voids in urinal independently PRN. Voiding Methods Urinal Urinal Urinal Data Completed and Pending Labs on day of discharge: Labs from last 24 hours 04/24/20 04/24/20 04/23/20 06:43 06:43 15:20 PT 10.4 10.4 INR 1.0 1.0 APTT 25.1 Sodium 140 Potassium 4.1 Chloride 107 Carbon Dioxide 26.0 Anion Gap 7.0 BUN 15 Creatinine 1.15 Estimated GFR/1.73 m2 >= 60.00 Glucose 95 Calcium 9.0 Magnesium 2.2 COVID-19 PCR Nasopharyn COVID-19 PCR Ref Test Perform Site 04/22/20 20:48 PT INR APTT Sodium Potassium Chloride Carbon Dioxide Anion Gap BUN Creatinine Estimated GFR/1.73 m2 Glucose Calcium Magnesium COVID-19 PCR Negative Nasopharyn COVID-19 PCR Not Applicable Ref Test [facility] Medical History (Updated 04/24/20 @ 13:21 by Garrett Lynn) CAD (coronary artery disease) s/p STEMI in October of 2017, cardiac cath at [facility] on 11/19/17 with NASIM to mid LAD and mid RCA; recatheterization on 11/21/17 with stent to proximal LAD (?restenosis/plavix resistance), on brillinta Hyperlipidemia Hypertension, essential Paroxysmal atrial fibrillation on eliquis Systolic CHF Last known EF 46% in 11/2017 Surgical History Colonoscopy - IV Sedation (02/28/16) H/O cardiac catheterization x2 History of appendectomy Family History Mother CAD (coronary artery disease) Stroke Hypertension Sister Brain cancer Brother CAD (coronary artery disease) Social History Smoking/Tobacco Use Status: Former Tobacco Use Alcohol Intake: former Drug use: Never Substance use type: does not use 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 Lives with his Kena in [place].
--- NOTE | 2020-04-24 14:22 | PDOC.CMDIS ---
- If Service Date Differs Date of service: 04/24/20 Time of Service: 14:22 LACE Index Scoring Tool - Questions: Length of Stay (in days): 2 Acuity (Admit via E.D.?): Yes Comorbidities: Congestive Heart Failure E.D. Visits: 2 - Answers: Total Score: 9 Risk of Readmission: Low Risk Care Management Discharge Reason for Hospitalization: Chest Pain Discharge Plan: Uziel is discharged home with no new services. 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 Uziel is being driven home by his , Kena, via private vehicle. Patient/Family Education Needs: Discharge instructions, limitations, and follow up plan of care, including Ask Me Three and self management.
== END 2020-04-24 14:35 | disposition home or self-care (01) | DRG 303 ==
LOC: ER 18:47 → ICU 21:01
PROVIDERS: Internal Medicine; Admitting Provider Family Medicine; Emergency Provider Student in an Organized Health Care Education/Training Program; PCP Internal Medicine; Visit Provider Family Medicine
DX: I25.110 Atherosclerotic heart disease of native coronary artery with unstable angina pectoris (principal); I82.432 Acute embolism and thrombosis of left popliteal vein; I50.22 Chronic systolic (congestive) heart failure; I13.0 Hypertensive heart and chronic kidney disease with heart failure and stage 1 through stage 4 chronic kidney disease, or unspecified chronic kidney disease; R07.9 Chest pain, unspecified; N18.9 Chronic kidney disease, unspecified; I48.0 Paroxysmal atrial fibrillation; Z95.5 Presence of coronary angioplasty implant and graft; I25.2 Old myocardial infarction; Z79.01 Long term (current) use of anticoagulants; E78.5 Hyperlipidemia, unspecified; I25.5 Ischemic cardiomyopathy
CPT/HCPCS: 36415; 71275; 80048; 80053; 80061; 93005; 96361; 96365; 96366; 96375; 99223; 99239; 99254; 99285; 99291; U0003; 83735; 84484; 85025; 85610; 85730; 93010; 93970; J1650; J3490

== ENCOUNTER 2020-04-26 00:09 | Outpatient (CLI) | payer OTHER, MEDICARE, SELFPAY ==
[2020-04-26 18:02] LABS: INR 1.2 (0.9-1.1); Prothrombin Time 12.1 sec (9.3-11.0)
== END 2020-04-26 00:29 ==
PROVIDERS: PCP Internal Medicine; Visit Provider Internal Medicine
DX: I48.0 Paroxysmal atrial fibrillation (principal); I25.10 Atherosclerotic heart disease of native coronary artery without angina pectoris; Z79.01 Long term (current) use of anticoagulants
CPT/HCPCS: 85610

== ENCOUNTER 2020-04-29 15:40 | Outpatient (CLI) | payer OTHER, MEDICARE, SELFPAY ==
[2020-04-29 15:56] LABS: Prothrombin Time 43.3 sec (9.3-11.0)
[2020-04-29 16:16] LABS: INR 4.5 (0.9-1.1)
== END 2020-04-29 16:00 ==
PROVIDERS: PCP Internal Medicine; Visit Provider Internal Medicine
DX: I48.0 Paroxysmal atrial fibrillation (principal); I25.10 Atherosclerotic heart disease of native coronary artery without angina pectoris; Z79.01 Long term (current) use of anticoagulants
CPT/HCPCS: 36415; 85610

== ENCOUNTER 2020-06-29 20:43 | Outpatient (REF) | payer OTHER, MEDICARE, SELFPAY ==
[2020-06-29 21:59] LABS: Vitamin B12 313 pg/mL (193-986)
== END 2020-06-29 21:03 ==
LOC: NCHCN 20:43
PROVIDERS: PCP Internal Medicine; Visit Provider Internal Medicine
DX: E72.11 Homocystinuria (principal)
CPT/HCPCS: 82607; 82746

== ENCOUNTER 2020-07-06 20:52 | Outpatient (REF) | payer OTHER, MEDICARE, SELFPAY ==
[2020-07-08 16:37] LABS: COVID-19 RT-PCR UVMMC Result Negative (Negative)
== END 2020-07-06 21:12 ==
LOC: NCHCN 20:52
PROVIDERS: PCP Internal Medicine; Visit Provider Internal Medicine
DX: Z20.828 Contact with and (suspected) exposure to other viral communicable diseases (principal)
CPT/HCPCS: U0003

== ENCOUNTER 2020-10-12 14:10 | Outpatient (CLI) | payer OTHER, MEDICARE, SELFPAY ==
[2020-10-12 14:51] LABS: HCT 43.3 % (40.0-50.0); HGB 14.4 g/dL (13.5-17.5); MCHC 33.3 % (32.0-36.0); MCV 84.2 fL (80-95); Platelet Count 223 10^3/uL (130-400); RBC 5.14 10^6/uL (4.36-5.78); RDW-SD 45.8 fL; WBC 6.56 10^3/uL (4.4-10.8)
[2020-10-12 15:11] LABS: Anion Gap 11.5 mmol/L (3-11); BUN 20 mg/dL (7-18); CO2 25.5 mmol/L (21.0-32.0); CREATININE 1.3 mg/dL (0.70-1.30); Calcium 8.7 mg/dL (8.5-10.1); Chloride 105 mmol/L (98-107); Estimated GFR 55.06 (mL/min/1.73m2); Glucose 117 mg/dL (74-106); NT-proBNP 314 pg/mL (<300); Potassium 3.7 mmol/L (3.5-5.1); Sodium 142 mmol/L (136-145); TSH 5.24 uIU/mL (0.36-3.74)
[2020-10-12 15:25] LABS: D-Dimer 435 ng/mlFEU (<500)
[2020-10-12 17:57] LABS: FREE T4 0.74 ng/dL (0.76-1.46)
== END 2020-10-12 14:11 | disposition home or self-care (01) ==
PROVIDERS: PCP Internal Medicine; Visit Provider Internal Medicine
DX: R07.9 Chest pain, unspecified (principal); R06.09 Other forms of dyspnea; R94.6 Abnormal results of thyroid function studies
CPT/HCPCS: 36415; 80048; 85027; 83880; 84439; 84443; 85379

== ENCOUNTER 2020-11-02 02:17 | Outpatient (CLI) | payer OTHER, MEDICARE, SELFPAY ==
--- NOTE | 2020-11-02 11:08 | DI.RAD_ITS ---
EXAM: XR KNEE RT 3V AP,LAT,FLAVIO CLINICAL HISTORY: RT KNEE PAIN, OA RT KNEE,M17.11. TECHNIQUE: 2D digital imaging was performed. COMPARISON: CR CHEST 2 VIEWS PA,LAT from 11/17/2017 FINDINGS: BONES: No acute fracture is present. No bony destructive lesion is seen. JOINTS: The knee is normally aligned. There is a small joint effusion. There are small spurs of the posterior patella. SOFT TISSUE: Normal. IMPRESSION: Minimal degenerative changes of the knee with a small joint effusion. DATA REPOSITORY: RADIATION DOSE DELIVERED:
== END 2020-11-02 02:37 ==
PROVIDERS: PCP Internal Medicine; Visit Provider Family Medicine
DX: M25.561 Pain in right knee (principal); M25.461 Effusion, right knee; M17.11 Unilateral primary osteoarthritis, right knee
CPT/HCPCS: 73562

== ENCOUNTER 2020-11-26 18:29 | Outpatient (REF) | payer OTHER, MEDICARE, SELFPAY ==
[2020-11-26 22:11] LABS: FREE T4 0.95 ng/dL (0.76-1.46); TSH 1.56 uIU/mL (0.36-3.74)
== END 2020-11-26 18:30 | disposition home or self-care (01) ==
LOC: NCHCN 18:29
PROVIDERS: PCP Internal Medicine; Visit Provider Internal Medicine
DX: E03.9 Hypothyroidism, unspecified (principal)
CPT/HCPCS: 84439; 84443

== ENCOUNTER 2020-12-01 15:37 | Outpatient (CLI) | payer OTHER, MEDICARE, SELFPAY ==
--- NOTE | 2020-12-01 09:35 | DI.RAD_ITS ---
Exam(s) XR KNEE RT 1V EXAM: XR KNEE RT 1V CLINICAL HISTORY: right knee pain. TECHNIQUE: 2D digital imaging was performed. COMPARISON: CR XR KNEE RT 3V AP,LAT,FLAVIO from 11/02/2020 FINDINGS: Single merchant's view of the right knee. Prior 4 images of 11/02/2020 reviewed. This single view reveals no evidence of patellar displacement. Although there is no significant thin neris of the retropatellar space, there does appear to be some degenerative change on both sides of th is joint in the medial aspect. There is no osteochondral defect. No ominous osseous lesion. There does appear to be some mild prepatellar swelling seen on this single view. This was also evident on the lateral view of 11/02/2020. IMPRESSION: DATA REPOSITORY: RADIATION DOSE DELIVERED:
== END 2020-12-01 15:38 | disposition home or self-care (01) ==
LOC: DIORS 15:38
PROVIDERS: PCP Internal Medicine; Referring Provider Internal Medicine; Visit Provider Student in an Organized Health Care Education/Training Program
DX: M23.91 Unspecified internal derangement of right knee (principal); I10 Essential (primary) hypertension; M25.561 Pain in right knee
CPT/HCPCS: 99204; 99214; 73560

== ENCOUNTER 2020-12-23 02:00 | Outpatient (CLI) | payer OTHER, MEDICARE, SELFPAY ==
--- NOTE | 2020-12-23 12:00 | DI.MRI_ITS ---
Exam(s) MR LOWER JOINT RT WO EXAM: MR LOWER JOINT RT WO CLINICAL HISTORY: TEAR OF MEDIAL MENISCUS RT KNEE, S83.241A, RT KNEE PAIJN. TECHNIQUE: Multiplanar multisequence MRI was performed. COMPARISON: CR XR KNEE RT 3V AP,LAT,FLAVIO from 11/02/2020 CR XR KNEE RT 3V AP,LAT,FLAVIO from 11/02/2020 CR XR KNEE RT 1V from 12/01/2020 CR XR KNEE RT 1V from 12/01/2020 FINDINGS: BONES: There is no fracture or contusion pattern. JOINTS: There is thinning of the articular cartilage in the medial femoral tibial joint. There is a small joint effusion. TENDONS: Extensor mechanism: Unremarkable. Medial retinaculum: Unremarkable. Lateral retinaculum: Unremarkable. Popliteus: Unremarkable. There is hyperintense signal seen within the popliteus muscle at the musculo tendinous junction. MUSCLES: Unremarkable. MENISCI: There is a tear of the body of the medial meniscus. The lateral meniscus is unremarkable. SOFT TISSUES: Mild edema seen in the soft tissues in the anterior medial knee. LIGAMENTS: Anterior Cruciate: Unremarkable. Posterior Cruciate: Unremarkable. Medial Collateral:There is fluid signal around the medial collateral ligament suspicious for sprain. There is a question of discontinuity of the deep fibers of the medial collateral ligament and a tear cannot be excluded. Lateral Collateral: Unremarkable. OTHER: IMPRESSION: 1. Tear of the body of the medial meniscus. 2. Sprain versus tear of the deep fibers of the medial collateral ligament. 3. Small joint effusion. 4. Hyperintense signal seen at the musculotendinous junction of the popliteus. This may represent te ndinosis or partial tear. DATA REPOSITORY:
== END 2020-12-23 02:20 ==
PROVIDERS: PCP Internal Medicine; Visit Provider Student in an Organized Health Care Education/Training Program
DX: M25.561 Pain in right knee (principal); S83.241A Other tear of medial meniscus, current injury, right knee, initial encounter; M25.461 Effusion, right knee; S83.411A Sprain of medial collateral ligament of right knee, initial encounter
CPT/HCPCS: 73721

== ENCOUNTER 2021-01-11 02:55 | Outpatient (CLI) | payer OTHER, MEDICARE, SELFPAY ==
[2021-01-11 10:20] LABS: Source Nasal/Nares
[2021-01-11 12:28] LABS: COVID-19 PCR Negative (Negative)
== END 2021-01-11 02:56 | disposition home or self-care (01) ==
LOC: LBO 02:55
PROVIDERS: PCP Internal Medicine; Visit Provider Student in an Organized Health Care Education/Training Program
DX: Z20.822 Contact with and (suspected) exposure to COVID-19 (principal); Z01.818 Encounter for other preprocedural examination
CPT/HCPCS: 87635

== ENCOUNTER 2021-01-13 08:12 | Day surgery (SDC) | payer OTHER, MEDICARE, SELFPAY ==
[2021-01-13] VITALS (8 sets, daily range): BP systolic 101–158; BP diastolic 65–103; PULSE 52–61; RESP 14–18; TEMP 36.1–36.6; O2SAT 96–100; BMI 32.8
--- NOTE | 2021-01-13 08:58 | ANES.PREOP_ITS ---
General Info Date of Service Date Performed: 01/13/21 Height: 6 ft Weight: 110 kg Body Mass Index (BMI): 32.8 Surgical Procedure: Operation Date: 01/13/21 10:55 Proposed Procedures Side Surgeon p Knee Arthroscopy RT WITH ANY INDICATED MENISCAL, CHRONDRAL AND SYNOVIAL SURGERY Right Duane Bourgeois MD Meds Allergies and Home Medications Allergies Allergy/AdvReac Type Severity Reaction Status Date / Time lisinopril Allergy Severe Anaphylaxsi Verified 01/13/21 08:27 s divalproex sodium Allergy Swelling/Ed Unverified 01/13/21 08:27 [From Depakote] shayy Home Medication Medication Instructions Recorded Brilinta 90 mg PO BID tab-cap 01/30/18 atorvastatin [Lipitor] 80 mg PO DAILY tab-cap 01/30/18 pantoprazole [Protonix] 40 mg PO DAILY tab-cap 01/30/18 furosemide [Lasix] 20 mg PO DAILY 05/09/18 amlodipine 2.5 mg PO DAILY 03/25/20 candesartan 4 mg PO DAILY 03/25/20 ezetimibe 10 mg PO DAILY 03/25/20 venlafaxine 37.5 mg PO DAILY 03/25/20 isosorbide mononitrate 60 mg PO DAILY #30 tab 04/24/20 metoprolol succinate 37.5 mg PO DAILY #0 tab 04/24/20 apixaban 5 mg tablet 5 mg PO BID 12/01/20 folic acid 1 mg tablet 1 mg PO DAILY 12/01/20 levothyroxine 50 mcg capsule 50 mcg PO DAILY 12/01/20 mecobalamin (vitamin B12) 1,000 1,000 mcg SUBLINGUAL DAILY 12/01/20 mcg disintegrating tablet,sublingual Current Visit Medications: Current Medications Generic Name Dose Route Start Last Admin Trade Name Freq PRN Reason Stop Dose Admin Ringer's Solution 1,000 mls @ 100 mls/hr 01/13/21 06:00 IV 02/11/21 23:59 INFUSION ANTHONY Cefazolin Sodium/Dextrose 2 gm in 50 mls @ 100 mls/hr 01/13/21 06:00 Ancef Duplex IVPB 01/13/21 16:00 PREOP ANTHONY IV Miscellaneous Supplies 1 each 01/13/21 06:00 Iv Access IV 02/11/21 23:59 DIRECTED ANTHONY Sodium Chloride 0 ml 01/13/21 06:00 Normal Saline Flush 10 Ml Syr IV 02/11/21 23:59 PRN PRN Sodium Chloride 0 ml 01/13/21 06:00 Normal Saline 10 Ml Vial IJ 02/11/21 23:59 DIRECTED PRN Sterile Water 0 ml 01/13/21 06:00 Water,Injection,Sterile 10 Ml Vial IJ 02/11/21 23:59 DIRECTED PRN Tramadol HCl 50 mg 01/13/21 07:50 Tramadol 50 Mg Tab PO Q6H PRN PRN PFSH Active Problems Active Problems: Problem Status Onset Code Acute medial meniscal injury of right knee S83.8X1A DVT, popliteal, acute I82.439 Left leg swelling M79.89 Chest pain R07.9 Chronic systolic CHF (congestive heart failure) I50.22 Abnormal nuclear stress test R94.39 Sensorineural hearing loss, bilateral 02/02/14 H90.3 Tinnitus 02/02/14 H93.19 CKD (chronic kidney disease) N18.9 Hyperlipidemia E78.5 Hypertension, essential I10 Paroxysmal atrial fibrillation I48.0 Systolic CHF I50.20 CAD (coronary artery disease) I25.10 Medical History Medical History CAD (coronary artery disease) s/p STEMI in October of 2017, [place] [facility] [place] NASIM to mid LAD and mid RCA; recatheterization on 11/21/17 with stent to proximal LAD (?restenosis/plavix resistance), on brillinta Hyperlipidemia Hypertension, essential Paroxysmal atrial fibrillation on eliquis Systolic CHF Last known EF 46% in 11/2017 Surgical History Surgical History Colonoscopy - IV Sedation (02/28/16) H/O cardiac catheterization x2 History of appendectomy Tobacco Smoking/Tobacco Use Status: Former Tobacco Use Alcohol Alcohol Intake: former Substance Use Substance use: Never Substance use type: does not use Vital Signs and Lab Results Vital Signs Most Recent Vital Signs in EMR: Most Recent Vital Signs Temp Pulse Resp BP Pulse Ox 36.6 C 52 L 18 142/84 H 100 01/13/21 08:15 01/13/21 08:15 01/13/21 08:15 01/13/21 08:15 01/13/21 08:15 Lab Results Blood Type / Crossmatch: No Data to Display Complete Blood Count: No Data to Display Complete Metabolic Panel: No Data to Display Liver Function Panel: No Data to Display Coagulation Panel: No Data to Display Cardiac Panel: No Data to Display Arterial Blood Gas: No Data to Display Venous Blood Gas: No Data to Display Pancreas Panel: No Data to Display Thyroid Panel: No Data to Display Infectious Disease: Coronavirus (COVID-19)(PCR) Negative (Negative) 01/11/21 09:02 01/11/21 Coronavirus 2019 Source Nasal/Nares 01/11/21 09:02 01/11/21 Blood Cultures: No Data to Display Toxicology Panel: No Data to Display Imaging and Studies Imaging and Studies EKG Summary: 04/23/2020 Conclusion Sinus rhythm...normal P axis, V-rate 60- 99 Inferior infarct, old...Q >35mS, II III aVF Stress Test Summary: 03/25/2020 Stress ECG Conclusion 1. Echocardiogram is consistent with an anterior wall myocardial infarction of indeterminate age 2. He underwent pharmacologic stress with regadenoson 3. Blunted heart rate and blood pressure response to pharmacologic stress 4. Peak heart rate was 61% of predicted for age. Electrocardiographically the test was nondiagnostic due to inadequate heart rate 5. The patient experienced chest pain following the EKG portion of the test, unrelieved with sublingual lingual nitroglycerin for which he was then referred to the emergency room Echocardiogram Summary: 03/25/2020 Conclusion The left ventricular wall thickness and chamber size. Estimated ejection fraction is 40 to 45%. There is global hypokinesis Normal right ventricular size and systolic function Normal atrial size, both left and right The aortic valve is trileaflet and mildly sclerotic without stenosis or regurgitation Mildly thickened mitral leaflets. Moderate mitral regurgitation Normal pulmonic and tricuspid valves. Trace to [place] and tricuspid regurgitation Pulmonary Function Summary: 01/07/2018 Spirometry shows no evidence of obstructive airways disease; no bronchodilator response. Lung volumes show no evidence of restriction. Diffusion capacity normal. Airways resistance normal. IMPRESSION: Normal pulmonary function study. Clinical correlation recommended. Anesthesia Assessment and Plan Anesthesia History Personal History: No History of Anesthesia Complications Family History: No Family History of Anesthesia Complications Exercise Tolerance Exercise Tolerance: Metabolic Equivalents>4 Pertinent Negatives Pertinent Negatives: No Symptoms of GERD and No Major Pulmonary Symptoms or Complaints Cardiac & Pulmonary Exam Cardiac Exam: Normal S1/S2 Heart Sounds Pulmonary Exam: Clear Bilateral Breath Sounds Airway Exam Known Difficult Airway: No Mallampati Class: 1 Mouth Opening: Normal (> 3cm) Thyromental Distance: Greater than 3 cm Neck Range of Motion: Full ROM Neck Circumference: Normal Teeth Condition: Normal Dentition (Missing front upper teeth) ASA Classification ASA Score: ASA 3 Emergency Case?: No NPO Status NPO Status: NPO Clears >2 hours, Solids >8 hours Anesthesia Plan Resuscitation Status: Full Code Anesthesia Technique: General Anesthesia Airway Planned: LMA Monitors Used: Standard Monitors
[2021-01-13] MEDS: Lactated Ringers 1,000 ML 100 ML IV (09:09)
[2021-01-13] MEDS: ceFAZolin 2 GM/50 ML BAG IVPB (11:39)
--- NOTE | 2021-01-13 12:00 | ROE_ITS ---
Date of service: 01/13/21 Time of Service: 12:00 Operative Note Operative Note DATE OF PROCEDURE: 01/13/21 PRE-OP DIAGNOSIS: Right knee 1. Medial meniscus tear 2. Chondromalacia POST-OP DIAGNOSIS: same PROCEDURE: Right knee 1. Partial medial meniscectomy, CPT #19361 2. Chondroplasty, CPT #79872: Patellar SURGEON: Duane Bourgeois LOSS PREVENTION OPERATIONS MANAGER: None None ANESTHESIA TYPE: Local By Surgeon and General LMA/ETT Refer to Anesthesia Record ESTIMATED BLOOD LOSS: 5 PATHOLOGY: none sent TOURNIQUET TIME: 0 COMPLICATIONS: None Patient was transported to: PACU Patient's condition: stable Indications: Please see complete medical record for details. Findings: Exam under anesthesia: Full range of motion. No instability. Arthroscopic findings: Posterior horn meniscal body junction medial meniscus complex tear and meniscal fraying. Small far posterior horn radial tear near an intact root. Intact anterior horn. Intact lateral meniscus. Intact ACL and PCL. Moderately diffuse grade 2?3 chondromalacia medial femoral condyle. Intact articular cartilage lateral compartment. Undersurface patella diffuse grade 2-3 chondromalacia. Trochlea distally limited cartilage grade II chondromalacia otherwise intact. Loose meniscal bodies. Procedure Description: In the operating room, genral anesthesia was induced. The patient was positioned supine on the operating room table. All bony prominences were well-padded. Preoperative antibiotics were administered. The knee was prepped and draped in the usual sterile fashion. The correct patient, procedure, and side of the procedure were all verified prior to incision. Exam under anesthesia was performed. 10 cc of 1% lidocaine containing epinephrine was infiltrated about the planned anteromedial and anterolateral knee arthroscopy portals. The portals were established and a complete diagnostic arthroscopy was performed with relevant findings detailed above. The mechanical shaver was used to remove pathologic synovium from the anteromedial, anterolateral, and patellofemoral compartments. Using a combination of hand instruments including meniscal biters and a power shaver and working through the anteromedial and anterolateral compartments the torn medial meniscus was debrided of all torn tissue at the posterior horn and posterior horn body junction to a stable margin. Care was taken to preserve as much meniscus tissue was possible. The meniscal remnant was probed and found to have a stable margin, stable root, and no other tears. There was fraying fibrillations and fissuring of the cartilage of the medial femoral condyle and undersurface patella. The mechanical shaver and hand instruments were used to smooth cartilage irregularity and remove unstable flaps reserving as much cartilage as possible. Under direct arthroscopic visualization an 18-gauge needle was passed into the knee from superolateral into the suprapatellar pouch. The knee was copiously irrigated with arthroscopic fluid until there was a clear effluent before being drained of all fluid. The anteromedial and anterolateral portals were closed in 3-0 Monocryl in a buried interrupted fashion. 20 cc of 1% lidocaine with epinephrine containing 4 mg of morphine was infiltrated into the knee through the previously placed needle. Mastisol, Steri-Strips, and 4 x 4 gauze were applied over the incisions followed by sterile soft roll. The knee was then wrapped gently with an SHERRON comressive bandage. The patient awoke from anesthesia without complication and was transferred to the recovery room in a stable condition.
[2021-01-13] MEDS: EPINEPHrine 30 MG/30 ML VIAL (12:37)
--- NOTE | 2021-01-13 13:01 | PDOC.DSDIS_ITS ---
Discharge Plan Disposition Patient Disposition: HOME Condition: Stable Discharge Details Reason For Visit: Right knee surgery Attending Provider: Duane Bourgeois Primary Care Provider: Diallo Booth Home Meds and New Rx's Prescriptions: New naproxen 250 mg tablet 250 mg PO BID PRN (Reason: Moderate pain or swelling) Qty: 20 RF: 0 tramadol 50 mg Tablet 50 mg PO Q8H PRN PRN (Reason: severe pain) Qty: 12 RF: 0 Continued Eliquis 5 mg tablet 5 mg PO BID RF: 0 folic acid 1 mg tablet 1 mg PO DAILY RF: 0 mecobalamin (vitamin B12) 1,000 mcg tablet,disintegrating 1,000 mcg sublingual DAILY RF: 0 levothyroxine 50 mcg capsule 50 mcg PO DAILY RF: 0 atorvastatin [Lipitor] 40 MG tablet 80 mg PO DAILY RF: 0 pantoprazole [Protonix] 20 MG tablet,delayed release (DR/EC) 40 mg PO DAILY RF: 0 Brilinta 90 MG tablet 90 mg PO BID RF: 0 isosorbide mononitrate 60 mg tablet extended release 24 hr 60 mg PO DAILY Qty: 30 RF: 1 metoprolol succinate 25 mg tablet extended release 24 hr 37.5 mg PO DAILY Qty: 0 RF: 0 furosemide [Lasix] 40 mg Tablet 20 mg PO DAILY RF: 0 candesartan 4 mg Tablet 4 mg PO DAILY RF: 0 amlodipine 2.5 mg tablet 2.5 mg PO DAILY RF: 0 ezetimibe 10 mg tablet 10 mg PO DAILY RF: 0 venlafaxine 37.5 mg capsule,extended release 24hr 37.5 mg PO DAILY RF: 0 Discharge Instructions Additional Instructions: Surgery: Knee arthroscopy with partial medial meniscectomy, trochlear chondroplasty, and synovectomy Activity: Weightbearing as tolerated. Advance range of motion as comfort allows. No knee brace or crutches needed as soon as comfortable. Recommend avoiding deep knee flexion, cutting, pivoting, or squatting for 6-8 weeks. A physical therapy prescription will be sent electronically to start in 2 to 3 weeks. Prescriptions: Resume home medications Brilinta and Eliquis starting tomorrow as DVT prophylaxis Naproxen 250 mg take 1 every 12 hours with a meal as needed for moderate pain (may cause additional bruising) Tramadol 50 mg take 1 every 8 hours as needed for severe pain You may use [id number] Tylenol (acetaminophen) as needed for mild pain. These pain medications may be taken all at once or in different combinations as needed. Also, recommend Colace (docusate) as a stool softener as surgery and pain medicine cause constipation. Dressings: Leave dressing in place for 3 days. May then remove and leave open to air or cover incisions with Band-Aids. May shower after 5 days. Follow-up: 10-[address] Bourgeois Let us know right away if you develop any redness, drainage, fevers, chest pain, or trouble breathing. Do not drink alcohol or drive for at least 24 hours after anesthesia. Please call the office during business hours with any questions or concerns. Referrals: Duane Bourgeois MD [ [facility] STAFF PHYSICIAN] - Discharge Orders Discharge Orders: Discharge Order (Routine); Ordered 01/13/21 Ordered By: Duane Bourgeois DS: Diagnosis Discharge Diagnosis (1) Acute medial meniscal injury of right knee: Status: Acute (2) Chondromalacia of right knee: Status: Acute
--- NOTE | 2021-01-13 13:34 | W.ANESPOSTOP ---
Postoperative Evaluation Date, Time and Location Date Performed: 01/13/21 Time Performed: 13:34 Patient Location: PACU Vital Signs Most Recent Imported Vital Signs: Most Recent Vital Signs Temp Pulse Resp BP Pulse Ox 36.3 C L 61 18 157/79 H 99 01/13/21 13:23 01/13/21 13:23 01/13/21 13:23 01/13/21 13:23 01/13/21 13:23 Pain Score Most Recent Pain Score: Most Recent Pain Score Pain Level 5 01/13/21 13:23 Assessment Mental Status: Awake (Alert & Oriented to Patient Baseline) Airway and Respiratory Function: Patent airway with normal (patient baseline) respiratory exam Cardiovascular Function: Hemodynamically Stable Hydration Status: Adequately Hydrated Nausea & Vomiting: No Nausea or Vomiting Pain: Pt. Denies Any Pain Peripheral Nerve Block: Patient did not receive a nerve block
--- NOTE | 2021-01-13 14:38 | W.ANESPOSTOP ---
Postoperative Evaluation Date, Time and Location Date Performed: 01/13/21 Time Performed: 14:38 Patient Location: Day Surgery Unit Vital Signs Most Recent Imported Vital Signs: Most Recent Vital Signs Temp Pulse Resp BP Pulse Ox 36.3 C L 61 16 107/69 96 01/13/21 14:05 01/13/21 14:05 01/13/21 14:05 01/13/21 14:05 01/13/21 14:05 Most Recent Vital Signs Temp Pulse Resp BP Pulse Ox 36.3 C L 61 18 157/79 H 99 01/13/21 13:23 01/13/21 13:23 01/13/21 13:23 01/13/21 13:23 01/13/21 13:23 Pain Score Most Recent Pain Score: Most Recent Pain Score Pain Level 5 01/13/21 14:05 Assessment Mental Status: Awake (Alert & Oriented to Patient Baseline) Airway and Respiratory Function: Patent airway with normal (patient baseline) respiratory exam Cardiovascular Function: Hemodynamically Stable Hydration Status: Adequately Hydrated Nausea & Vomiting: No Nausea or Vomiting Pain: Pt. Denies Any Pain Peripheral Nerve Block: Patient did not receive a nerve block
== END 2021-01-13 14:25 | disposition home or self-care (01) ==
PROVIDERS: PCP Internal Medicine; Visit Provider Student in an Organized Health Care Education/Training Program
PROC: (CPT 29870; principal; 2021-01-13 10:45)
DX: M23.221 Derangement of posterior horn of medial meniscus due to old tear or injury, right knee (principal); M94.261 Chondromalacia, right knee; M23.41 Loose body in knee, right knee
CPT/HCPCS: 29881; J0131; J0690; J1100; J1885; J2001; J2405

== ENCOUNTER 2021-06-28 19:10 | Outpatient (REF) | payer OTHER, MEDICARE, SELFPAY ==
[2021-06-28 21:37] LABS: HCT 43.4 % (40.0-50.0); HGB 13.9 g/dL (13.5-17.5); MCH 27.9 pg (27.0-33.0); MPV 13.8 fL (8.0-11.0); Platelet Count 219 10^3/uL (130-400); RBC 4.99 10^6/uL (4.36-5.78); RDW-SD 45.1 fL; WBC 6.19 10^3/uL (4.4-10.8)
[2021-06-28 22:08] LABS: Anion Gap 9.8 mmol/L (3-11); BUN 22 mg/dL (7-18); CO2 25.2 mmol/L (21.0-32.0); CREATININE 1.7 mg/dL (0.70-1.30); Calcium 8.7 mg/dL (8.5-10.1); Calculated LDL 67 mg/dL (<100); Chloride 105 mmol/L (98-107); Cholesterol 144 mg/dL (<200); Estimated GFR 40.28 (mL/min/1.73m2); Glucose 82 mg/dL (74-106); HDL Cholesterol 48 mg/dL (40-60); Potassium 4.4 mmol/L (3.5-5.1); Sodium 140 mmol/L (136-145); TSH 2.95 uIU/mL (0.36-3.74); Triglyceride 149 mg/dL (<150)
== END 2021-06-28 19:11 | disposition home or self-care (01) ==
LOC: NCHCN 19:10
PROVIDERS: PCP Internal Medicine; Visit Provider Internal Medicine
DX: I10 Essential (primary) hypertension (principal); N18.30 Chronic kidney disease, stage 3 unspecified; E03.9 Hypothyroidism, unspecified; E78.5 Hyperlipidemia, unspecified
CPT/HCPCS: 80048; 80061; 85027; 84443

== ENCOUNTER 2021-12-27 18:44 | Outpatient (REF) | payer OTHER, MEDICARE, SELFPAY ==
[2021-12-27 14:31] LABS: Anion Gap 11.3 mmol/L (3-11); BUN 18 mg/dL (7-18); CO2 25.7 mmol/L (21.0-32.0); CREATININE 1.5 mg/dL (0.70-1.30); Calcium 8.6 mg/dL (8.5-10.1); Chloride 104 mmol/L (98-107); Estimated GFR 46.54 (mL/min/1.73m2); Glucose 90 mg/dL (74-106); Potassium 4.4 mmol/L (3.5-5.1); Sodium 141 mmol/L (136-145)
[2021-12-27 14:37] LABS: Bilirubin Negative (Negative); Blood Negative (Negative); Clarity Clear (Clear); Glucose Negative (Negative); Ketones Negative (Negative); Leukocyte Esterase Negative (Negative); Nitrite Negative (Negative); Urobilinogen 0.2 EU/dL (Up TO 0.2); pH 5.5 (5-8)
== END 2021-12-27 18:45 | disposition home or self-care (01) ==
LOC: NCHCN 18:44
PROVIDERS: PCP Internal Medicine; Visit Provider Internal Medicine
DX: I10 Essential (primary) hypertension (principal); N18.30 Chronic kidney disease, stage 3 unspecified; I25.5 Ischemic cardiomyopathy; Z86.718 Personal history of other venous thrombosis and embolism; Z86.79 Personal history of other diseases of the circulatory system
CPT/HCPCS: 80048; 81003

== ENCOUNTER 2022-05-18 11:32 | Outpatient (CLI) | payer OTHER, SELFPAY ==
--- NOTE | 2022-05-18 12:50 | DI.US_ITS ---
APPROVED REPORT EXAM: Comprehensive 2D, Doppler, and color-flow Echocardiogram Patient Location: Out-Patient Skiing Instructor: Hannah Ace RDCS (AE) Indications: Ischemic cardiomyopathy, Chest pain, CAD,Exertional dyspnea Other Information Study Quality: Adequate Conclusion Normal left ventricular wall thickness and chamber size. Estimated ejection fraction is 40 to 45%. There is global hypokinesis Normal right ventricular size and systolic function Both atria are normal in size Aortic valve is mildly sclerotic and trileaflet without stenosis or regurgitation Mild mitral annular calcification. Mildly thickened mitral leaflets. Mild to moderate mitral regurg itation Normal tricuspid valve with mild regurgitation. Estimated right ventricular systolic pressure is 27 mmHg Mildly dilated ascending aorta measuring 3.95 cm Wall motion Left Ventricle The left ventricle is normal size. Left ventricular systolic function is moderately decreased. There is normal left ventricular wall thickness. There is global hypokinesis There is no ventricular septal defect visualized. LVEF is 40-45%. Right Ventricle The right ventricle is normal size. The right ventricular systolic function is normal. The RVSP is 27 .1 mmHg. Atria The left atrium size is normal. The right atrium size is normal. The interatrial septum is intact wit h no evidence for an atrial septal defect. Aortic Valve The Aortic valve is mildly sclerotic. Aortic valve is trileaflet. There is no aortic valvular stenosi s. No aortic regurgitation is present. Mitral Valve Mild mitral annular calcification. Mildly thickened mitral leaflets No evidence of mitral valve steno sis. Mild to moderate mitral regurgitation. Tricuspid Valve The tricuspid valve is normal in structure. There is no tricuspid valve stenosis. Mild tricuspid regu rgitation. Pulmonic Valve The pulmonary valve is normal in structure. There is no pulmonic valvular stenosis. Trace pulmonic re gurgitation. Great Vessels The aortic root is normal in size. The ascending aorta is mildly dilated.3.95 cm Aortic arch is bipin l in caliber. IVC is normal in size and collapses >50% with inspiration. Pericardium There is no pericardial effusion. 2D Dimensions IVSD d PLAX 1.06 cm M: 0.6-1.2 LV Vol A2C d MOD 134.4 mL LVPW d PLAX 1.05 cm M: 0.6 - 1.2 LV Vol A4C d MOD 169.5 mL LVID d PLAX 5.66 cm M: 4.2 - 5.8 LA vol/ BSA A2C s A-L 20.2 mL/m2 LVDs 4.50 cm M: 2.5 - 4.0 LA vol/ BSA A4C s A-L 29.4 mL/m2 Ao Root d 2.97 cm M: 3.1 - 3.7 LA Vol/ BSA Biplane s A-L 24.5 mL/m2 RA Area A4C 19.55 cm2 LA Area A4C s MOD 22.37 cm2 RA Vol/ BSA A4C s A-L 21.1 mL/m2 LA Area A2C s MOD 18.44 cm2 Ao Asc Diam d 3.95 cm M: 2.6 - 3.4 LV EF A4C MOD 40.2 % LV EF Teichholz 40.4 % LV EF A2C MOD 40.2 % LVEF (Guerrero's) 38.34 % M: 52 - 72 LV EF Biplane MOD 38.3 % LV Volume 106.60 mL M: 62 - 150 SV 57.73 mL LV Volume Index 44.41 mL/m2 M: 34 - 74 SV Index 24.00 mL/m2 LV Vol Biplane MOD 150.6 mL FS 19.95 % M-Mode TAPSE 2.99 cm (M/F) >1.7 LV Diastology E/A Ratio 1.3 MV E Vmax 1.02 (0.4-1.3 m/s) MV A Vmax 0.80 (0.4-1.3 m/s) MV E/A Ratio 1.21 Aortic Valve LVOT Area 3.15 cm2 AoV Area Vmax 2.15 cm2 LVOT Vmax 0.94 m/s AoV Area/ BSA (Vmax) 0.89 cm2/m2 LVOT Mean Elbert. 0.62 m/s FRANK Mean Elbert. 2.06 cm2 LVOT Peak Grad 3.5 mmHg FRANK Mean Elbert. Index 0.86 cm2/m2 LVOT Mean Grad 1.8 mmHg LVOT VTI 0.207 m LVOT Diam s 2.00 cm AoV Vmax 1.38 m/s Velocity Ratio 0.68 AoV Mean Elbert. 0.95 m/s AoV Peak Grad 7.6 mmHg LVOT SV 65.16 mL AoV Mean Grad 4.0 mmHg AoV VTI 0.303 m AoV Area VTI 2.15 cm2 AoV Area/ BSA (VTI) 0.89 cm/m2 Mitral Valve MV DT 213 (160-240 msec) MR Vmax 5.02 m/s MV PHT 62 msec MR VTI 1.890 m MV Area PHT 3.55 cm2 MR Peak Grad 100.8 mmHg MV VTI 0.448 m MR Mean Grad 76.7 mmHg MV VTI Annulus 0.456 m MV Area VTI 1.48 (4.0-6.0 cm2) Pulmonary Valve PV Vmax 0.85 (0.5-1.5 m/s) RVOT Peak Gr. 1.95 mmHg PV Peak Grad 2.9 mmHg RVOT Mean Gr. 1.00 mmHg PV Mean Grad 1.6 mmHg RVOT VTI 0.141 m PV VTI 0.194 m RVOT Vmax 0.70 m/s Tricuspid Valve TR Peak Grad 24.1 mmHg TR Vmax 2.46 m/s RA Pressure 3.00 mmHg RVSP (TR) 27.1 mmHg
== END 2022-05-18 11:52 ==
LOC: DI 11:32
PROVIDERS: PCP Internal Medicine; Visit Provider Internal Medicine
DX: I25.5 Ischemic cardiomyopathy (principal); R07.89 Other chest pain; I25.10 Atherosclerotic heart disease of native coronary artery without angina pectoris; R06.09 Other forms of dyspnea
CPT/HCPCS: 93306

== ENCOUNTER 2022-07-27 13:33 | Outpatient (REF) | payer OTHER, SELFPAY ==
[2022-07-27 14:54] LABS: Anion Gap 6.5 mmol/L (3-11); BUN 18 mg/dL (7-18); CO2 29.5 mmol/L (21.0-32.0); CREATININE 1.3 mg/dL (0.70-1.30); Calcium 8.9 mg/dL (8.5-10.1); Chloride 107 mmol/L (98-107); Estimated GFR 59.47 (mL/min/1.73m2); Glucose 109 mg/dL (74-106); Potassium 4.5 mmol/L (3.5-5.1); Sodium 143 mmol/L (136-145); TSH 2.11 uIU/mL (0.36-3.74)
== END 2022-07-27 13:34 | disposition home or self-care (01) ==
LOC: NCHCN 13:33
PROVIDERS: PCP Internal Medicine; Visit Provider Internal Medicine
DX: E03.9 Hypothyroidism, unspecified (principal); I10 Essential (primary) hypertension; I25.10 Atherosclerotic heart disease of native coronary artery without angina pectoris; I25.5 Ischemic cardiomyopathy
CPT/HCPCS: 80048; 84443

== ENCOUNTER 2023-05-28 15:12 | Outpatient (REF) | payer OTHER, SELFPAY ==
[2023-05-28 16:05] LABS: Iron 108 ug/dL (65-175)
[2023-05-28 22:02] LABS: Ferritin 84 ng/mL (26-388)
== END 2023-05-28 15:13 | disposition home or self-care (01) ==
LOC: NCHCN 15:12
PROVIDERS: PCP Internal Medicine; Visit Provider Internal Medicine
DX: G25.81 Restless legs syndrome (principal); R53.83 Other fatigue
CPT/HCPCS: 82728; 83540; 83550

== ENCOUNTER 2023-08-03 11:37 | Outpatient (REF) | payer OTHER, SELFPAY ==
[2023-08-03 17:56] LABS: Anion Gap 9.4 mmol/L (3-11); BUN 21 mg/dL (7-18); CO2 24.6 mmol/L (21.0-32.0); CREATININE 1.2 mg/dL (0.70-1.30); Calcium 8.7 mg/dL (8.5-10.1); Chloride 107 mmol/L (98-107); Estimated GFR 65.06 (mL/min/1.73m2); Glucose 96 mg/dL (74-106); Potassium 4.8 mmol/L (3.5-5.1); Sodium 141 mmol/L (136-145); TSH 1.98 uIU/mL (0.36-3.74); Vitamin B12 226 pg/mL (193-986)
[2023-08-06 10:12] LABS: PSA, Diagnostic 0.2 ng/mL (<=6.5)
== END 2023-08-03 11:38 | disposition home or self-care (01) ==
LOC: NCHCN 11:37
PROVIDERS: PCP Internal Medicine; Visit Provider Family Medicine
DX: E03.9 Hypothyroidism, unspecified (principal); R39.11 Hesitancy of micturition
CPT/HCPCS: 80048; 82607; 84153; 84443

== ENCOUNTER 2024-06-02 18:20 | Outpatient (REF) | payer OTHER, SELFPAY ==
[2024-06-02 22:39] LABS: Crystals (BF) No Crystals seen
== END 2024-06-02 18:21 | disposition home or self-care (01) ==
LOC: LBN 18:20
PROVIDERS: PCP Internal Medicine; Visit Provider Family Medicine
DX: M70.21 Olecranon bursitis, right elbow (principal)
CPT/HCPCS: 89050; 87070; 87205; 89060

== ENCOUNTER 2024-06-25 12:42 | Outpatient (CLI) | payer OTHER, SELFPAY ==
--- NOTE | 2024-06-25 | DI.US_ITS ---
Exam(s) US LOWER EXTREMITY VENOUS LT EXAM: US LOWER EXTREMITY VENOUS LT CLINICAL HISTORY: Lt lower leg swelling, R22.42. TECHNIQUE: Lower extremity venous ultrasound performed using grayscale, color-flow, and spectral Do ppler analysis. COMPARISON: No exams were available for comparison FINDINGS: The common femoral, femoral and popliteal veins demonstrate normal compressibility, augmentation, and color Doppler. The posterior tibial and peroneal veins are patent. No saphenous vein thrombosis or other superficial venous thrombosis is seen. No hematoma or Hamilton's cyst is seen. IMPRESSION: Negative lower extremity ultrasound. No evidence of DVT. DATA REPOSITORY:
== END 2024-06-25 13:02 ==
LOC: DI 12:43
PROVIDERS: PCP Internal Medicine; Visit Provider Physician Assistant Medical
DX: R22.42 Localized swelling, mass and lump, left lower limb (principal)
CPT/HCPCS: 93971

== ENCOUNTER 2024-12-08 09:20 | Outpatient (CLI) | payer MEDICARE, SELFPAY ==
--- NOTE | 2024-12-08 | DI.RAD_ITS ---
Exam(s) XR CHEST 2V PA LATERAL EXAM: XR CHEST 2V PA LATERAL CLINICAL HISTORY: TACHYPNEA,R06.82 TECHNIQUE: 2D digital imaging was performed. Two views. COMPARISON: CR XR PORTABLE CHEST AP from 03/25/2020 FINDINGS: HEART: Mildly enlarged. Aorta: Mildly tortuous. PULMONARY VASCULATURE: Normal. MEDIASTINUM: Unremarkable. LUNGS: Clear. PLEURAL SPACE: No pleural effusion or pneumothorax. BONE:Unremarkable for age. SOFT TISSUES: Unremarkable. IMPRESSION: Cardiomegaly. No acute abnormality. DATA REPOSITORY: RADIATION DOSE DELIVERED:
== END 2024-12-08 09:40 ==
LOC: DI 09:22
PROVIDERS: PCP Family Medicine; Visit Provider Family Medicine
DX: R06.82 Tachypnea, not elsewhere classified (principal); I51.7 Cardiomegaly
CPT/HCPCS: 71046

== ENCOUNTER 2024-12-08 12:54 | Outpatient (REF) | payer MEDICARE, SELFPAY ==
[2024-12-08 16:02] LABS: Abs Immature Grans 0.03 10^3/uL (0.0-0.06); Absolute Basophil Count 0.04 10^3/uL (0.0-0.2); Absolute Eosinophil Count 0.06 10^3/uL (0.0-0.7); Absolute Lymphocyte Count 0.66 10^3/uL (1.2-3.4); Absolute Monocyte Count 0.65 10^3/uL (0.1-0.8); Absolute Neutrophil Count 9.16 10^3/uL (1.2-6.7); Basophils % 0.4 %; Eosinophils % 0.6 %; HCT 46.6 % (40.0-50.0); HGB 14.6 g/dL (13.5-17.5); Immature Grans % 0.3 %; Lymphocytes % 6.2 %; MCH 27.5 pg (27.0-33.0); MCHC 31.3 % (32.0-36.0); MCV 88 fL (80-95); Monocytes % 6.1 %; Neutrophils % 86.4 %; Platelet Count 213 10^3/uL (130-400); RDW 15.1 % (11.8-14.1); RDW-SD 48.1 fL
[2024-12-08 16:22] LABS: Hemoglobin A1C 6.1 % (<5.7)
[2024-12-08 16:24] LABS: Bilirubin Negative (Negative); Blood Negative (Negative); Clarity Clear (Clear); Glucose Negative (Negative); Ketones Negative (Negative); Leukocyte Esterase Negative (Negative); Nitrite Negative (Negative); Specific Gravity 1.015 (1.005-1.025)
[2024-12-08 17:55] LABS: ALT 32 U/L (16-63); AST 24 U/L (15-37); Albumin 4.2 g/dL (3.4-5.0); Alkaline Phosphatase 130 U/L (46-116); Anion Gap 10.7 mmol/L (3-11); BUN 19 mg/dL (7-18); Bilirubin, Total 1.3 mg/dL (0.2-1.0); C-Reactive Protein 1.88 mg/dL (<or=0.5); CO2 25.3 mmol/L (21.0-32.0); CREATININE 1.5 mg/dL (0.70-1.30); Calcium 9.2 mg/dL (8.5-10.1); Chloride 104 mmol/L (98-107); Estimated GFR 49.47 (mL/min/1.73m2); Glucose 114 mg/dL (74-106); NT-proBNP 2248 pg/mL (<300); Potassium 4.8 mmol/L (3.5-5.1); Sodium 140 mmol/L (136-145); TSH (W/Ref FT4) 1.95 uIU/mL (0.36-3.74); Total Protein 7.7 g/dL (6.4-8.2)
[2024-12-08 23:21] LABS: PSA, Diagnostic 0.2 ng/mL (<=6.5)
== END 2024-12-08 12:55 | disposition home or self-care (01) ==
LOC: NCHCN 12:54
PROVIDERS: PCP Family Medicine; Visit Provider Family Medicine
DX: E66.812 Obesity, class 2 (principal); R35.0 Frequency of micturition; R30.0 Dysuria; R06.82 Tachypnea, not elsewhere classified; E03.9 Hypothyroidism, unspecified
CPT/HCPCS: 80053; 81003; 83036; 83880; 84153; 84443; 85025; 86140; 87086

== ENCOUNTER 2025-05-19 00:59 | Outpatient (CLI) | payer MEDICARE, SELFPAY ==
--- NOTE | 2025-05-19 | DI.MRI_ITS ---
Exam(s) MR BRAIN WO EXAM: MR BRAIN WO CLINICAL HISTORY: R41.89 Moderate cognitive impairment TECHNIQUE: Multiplanar multisequence MRI of the brain was performed. COMPARISON: MR MRI - BRAIN W/WO CONTRAST from 06/28/2012 CT HEAD WITHOUT CONTRAST from 11/20/2013 FINDINGS: VENTRICLES AND EXTRA AXIAL SPACES: There is generalized cerebral atrophy consistent with the patient's age. MIDLINE SHIFT: None. CEREBRAL PARENCHYMA: No focus of restricted diffusion to suggest acute infarct. No space-occupying lesion identified. There are multiple areas of hyperintense signal seen in the white matter on the FLAIR and T2 weighted images consistent with chronic microvascular ischemic disease. There is a old lacune in the right basal ganglia. HEMORRHAGE: None. BRAINSTEM/CEREBELLUM: Normal. CALVARIUM: Normal. VISUALIZED PARANASAL SINUSES/MASTOIDS:Clear. CROW OF MAYER: Normal flow void. PITUITARY GLAND: Unremarkable. OTHER FINDINGS: None. IMPRESSION: 1. There is generalized cerebral atrophy consistent with the patient's age. 2. Findings of chronic microvascular ischemic disease. 3. There is no evidence of an acute infarct. DATA REPOSITORY:
== END 2025-05-19 01:19 ==
PROVIDERS: PCP Family Medicine; Visit Provider Family Medicine
DX: R41.89 Other symptoms and signs involving cognitive functions and awareness (principal)
CPT/HCPCS: 70551